=== PATIENT | female | born 1985 | race Caucasian/White ===

== ENCOUNTER 2019-10-06 14:03 | Emergency (ER) | payer MEDICAID, SELFPAY ==
--- NOTE | 2019-10-06 14:29 | US_ITS ---
WS: [id number] Obstetrical ultrasound, limited. HISTORY: Vaginal bleeding with . COMPARISON: None. Transabdominal and transvaginal imaging is submitted. Uterus is anteverted. There is a slightly elongated shaped gestational sac with decidual reaction. Sa c measurement corresponds to gestation of 6 weeks and 5 days. No pole, cardiac activity or yolk sac is identified. Cervix is closed. RIGHT ovary measures 2.2 x 1.5 x 2.4 cm. LEFT ovary measures 3. 3 x 1.7 x 2.0 cm. No free fluid. US/US OB limited [id number] IMPRESSION: 1. Slightly irregular intrauterine gestational sac with no pole or cardia c activity. Suspect incomplete spontaneous . 2. No free fluid or adnexal mass.
[2019-10-06 15:38] VITALS: BP 135/85; PULSE 95; RESP 18; TEMP 37.4; O2SAT 98; BMI 27.4
[2019-10-06 15:52] LABS: Basophils % 0.5 %; Eosinophils # 0.2 10^3/uL (0.0-0.8); Eosinophils % 1.9 %; Hematocrit 40.5 % (37.0-47.0); Hemoglobin 13.3 g/dL (11.5-15.3); Lymphocytes # 1.5 10^3/uL (0.8-4.8); Lymphocytes % 17.1 %; Mean Corpuscular HGB Conc 32.8 g/dL (30.0-36.0); Mean Corpuscular Hemoglobin 28.1 pg (28.0-34.0); Mean Corpuscular Volume 85.6 fL (81-99); Mean Platelet Volume 9.9 fL (7.4-10.4); Monocytes # 0.6 10^3/uL (0.2-0.9); Monocytes % 6.8 %; Neutrophils # 6.3 10^3/uL (1.8-7.7); Neutrophils % 73.3 %; Nucleated Red Blood Cells % 0 %; Platelet Count 272 10^3/cmm (130-400); Red Blood Count 4.73 10^6/uL (4.1-5.3); Red Cell Distribution Width 13.6 % (12.1-15.1); White Blood Count 8.5 10^3/uL (4.0-10.0)
--- NOTE | 2019-10-06 16:02 | ED_ITS ---
Entered by Marci Ulloa, acting as scribe for Oct 06, 2019 14:03 HPI - Abdominal Pain General: Chief Complaint: Abdominal Pain Stated Complaint: bleeding and preg x 10 weeks Time Seen by Provider: 10/06/19 15:58 Source: patient Mode of arrival: ambulatory Limitations: no limitations History of Present Illness: MD elicited complaint: abdominal pain Pertinent past history: other (kidney failure) Pain Consistency: constant Radiation: epigastric Exacerbating factors: nothing Relieving factors: nothing Related Data: Date of Last Menstrual Period: 07/27/19 Review of Systems General: Reports: 10 or more systems reviewed and unremarkable except in HPI and below : Reports: vaginal bleeding PFSH ED PFSH: Statuses (acute, chronic, etc) shown below reflect problem list status as previously entered and may not be historically accurate Surgical History History of cholecystectomy (Acute) Social History Smoking and tobacco status: former smoker Female Reproductive History: Date of last menstrual period: 07/27/19 Physical Exam Narrative: EXAM NARRATIVE: Patient found out that she was last week. She has had heavy vaginal bleeding with passing clots for the past 2 days. Const: COMMON NORMALS: no apparent distress, average body habitus, oriented x3, no limitations, healthy appearing, alert and well nourished GENERAL APPEARANCE: anxious Neck/C-Spine: COMMON NORMALS: full ROM and no JVD CERVICAL SPINE: Yes cervical ROM normal Resp: COMMON NORMALS: normal respiratory effort, no retractions, no use of accessory muscles and clear to auscultation bilaterally AUSCULTATION: clear to auscultation bilaterally Cardio: COMMON NORMALS: no JVD, regular rate and regular rhythm RATE: regular rate RHYTHM: regular rhythm GI: COMMON NORMALS: normal to inspection, nondistended, normoactive bowel sounds, soft to palpation, non-tender and no hepatosplenomegaly PALPATION: Yes soft and Yes no hepatosplenomegaly : COMMON NORMALS: Yes no CVA tenderness and Yes external appearance normal BLADDER/KIDNEY EXAM: Yes no CVA tenderness EXTERNAL FEMALE EXAM: Yes normal appearance of the urethra SPECULUM EXAM - VAGINA: Yes vaginal bleeding and No tissue present in vagina SPECULUM EXAM - CERVIX: No cervical os open, Yes cervical os closed and Yes cervical bleeding OB/EXTERNAL & SPECULUM: vaginal bleeding; no tissue noted in vagina and cervical os open Back/Pelvis: COMMON NORMALS: no CVA tenderness Extremity: COMMON NORMALS: normal to inspection and full ROM Neuro: COMMON NORMALS: oriented x3 SENSORIUM/ORIENTATION: Yes alert Psych: COMMON NORMALS: mental status grossly normal, thought process normal and cooperative ATTITUDE: Yes calm ACTIVITY/MOTOR BEHAVIOR: Yes appropriate eye contact MOOD & AFFECT: Yes depressed mood, Yes anxious and Yes tearful THOUGHT PROCESS: normal thought process Course Vital Signs: Vital signs: Vital Signs Temperature 99.3 F 10/06/19 15:38 Pulse Rate 95 10/06/19 15:38 Respiratory Rate 17 10/06/19 16:08 Blood Pressure 135/85 10/06/19 15:38 Pulse Oximetry 95 10/06/19 16:08 MDM - Abdominal Pain MDM Narrative: Medical decision making narrative: Patient states she is 6 para 4 AB 1. She just found out last week she was . She believes she is about 9 weeks along. She has had heavy vaginal bleeding with passage of clots for the past 2 days. Ultrasound reveals a misshapen or irregularly shaped gestational sac with no cardiac activity. I explained to the patient that this is most probably an incomplete spontaneous . Patient is given a lab order for repeat quantitative hCG in 48 hours and instructed to follow-up with [facility]. Lab Data: Labs: Lab Results 10/06/19 10/06/19 Range/Units 15:41 15:41 WBC 8.5 (4.0-10.0) 10^3/ uL RBC 4.73 (4.1-5.3) 10^6/u L Hgb 13.3 (11.5-15.3) g/dL Hct 40.5 (37.0-47.0) % MCV 85.6 (81-99) fL MCH 28.1 (28.0-34.0) pg MCHC 32.8 (30.0-36.0) g/dL RDW 13.6 (12.1-15.1) % Plt Count 272 (130-400) 10^3/c mm MPV 9.9 (7.4-10.4) fL Neut % (Auto) 73.3 % Lymph % (Auto) 17.1 % [place] % (Auto) 6.8 % Eos % (Auto) 1.9 % Baso % (Auto) 0.5 % Neut # (Auto) 6.3 (1.8-7.7) 10^3/u L Lymph # (Auto) 1.5 (0.8-4.8) 10^3/u L [place] # (Auto) 0.6 (0.2-0.9) 10^3/u L Eos # (Auto) 0.2 (0.0-0.8) 10^3/u L Baso # (Auto) 0.0 (0.0-0.1) 10^3/u L Nucleated RBC % (a uto) 0 % Nucleated RBCs # 0.0 /100WBC Sodium 136 (136-145) mmol/L Potassium 3.9 (3.5-5.1) mmol/L Chloride 100 (98-107) mmol/L Carbon Dioxide 24 (22-29) mmol/L Anion Gap 15.9 (5-19) BUN 6 (6-20) mg/dL Creatinine 0.5 (0.5-0.9) mg/dL GFR Calculation 140.4 H (90-130) mL/min Glucose 104 (74-109) mg/dL Calcium 9.5 (8.6-10.0) mg/Dl Total Bilirubin 0.2 (0.15-1.2) mg/dL AST 19 (0-32) U/L ALT 20 (0-33) U/L Alkaline Phosphata se 124 H (35-105) IU/L Total Protein 7.3 (6.6-8.7) g/dL Albumin 4.4 (3.5-5.2) g/dL Globulin 2.9 (1.3-4.6) g/dL Ser , Teresa i-Qnt 4281.00 mIU/mL Coding Level of Care Code ED Quill Skinner for Chdanielle Sands The documentation recorded by the Artemio hope Bridget Annette, accurately reflects the service I personally performed and the decisions made by Edouard abraham Donald P, DO Oct 06, 2019 14:03
[2019-10-06 16:08] VITALS: RESP 17; O2SAT 95
[2019-10-06 16:17] LABS: Alanine Aminotransferase 20 U/L (0-33); Albumin Level 4.4 g/dL (3.5-5.2); Alkaline Phosphatase 124 IU/L (35-105); Anion Gap 15.9 (5-19); Aspartate Amino Transferase 19 U/L (0-32); Blood Urea Nitrogen 6 mg/dL (6-20); Calcium 9.5 mg/Dl (8.6-10.0); Carbon Dioxide 24 mmol/L (22-29); Chloride 100 mmol/L (98-107); Globulin 2.9 g/dL (1.3-4.6); Glomerular Filtration Rate 140.4 mL/min (90-130); Glucose 104 mg/dL (74-109); Potassium 3.9 mmol/L (3.5-5.1); Sodium 136 mmol/L (136-145); Total Bilirubin 0.2 mg/dL (0.15-1.2); Total Protein 7.3 g/dL (6.6-8.7)
[2019-10-06 16:54] VITALS: BP 116/90; PULSE 87; RESP 16
[2019-10-06 17:02] LABS: Add Urine Microscopic? YES; Bilirubin Urine Neg (NEGATIVE); Blood Urine 3+ (Negative); Glucose Urine UA Norm (Normal); Ketones Urine Negative (Negative); Leukocyte Esterase Urine Trace (Negative); Nitrate Urine Negative (Negative); Protein Urine 1+ (Negative); Specific Gravity, Urine 1.015 (1.005-1.030); Urine Appearance Cloudy (CLEAR); Urine Color Orange (Yellow); Urobilinogen Urine 1 mg/dL (Negative); pH Urine 6.5 (5-7)
[2019-10-06 17:03] LABS: RBC Urine 25-40 /hpf (0-2)
[2019-10-06 17:05] LABS: Add Urine Culture? Yes; Bacteria Urine 2+
--- NOTE | 2019-10-07 10:06 | DCPLANNER ---
sales effectiveness manager had message to schedule a follow up appointment for [facility] with [facility]. sales effectiveness manager called [facility], spoke with Bhavana, gave clinic patients information. sales effectiveness manager was told that patients information would be printed off and reviewed. Clinic will call leather case finisher and patient with appointment information.
== END 2019-10-06 16:55 | disposition home or self-care (01) ==
PROVIDERS: Physician Assistant; Emergency Provider Family Medicine
DX: O26.891 Other specified pregnancy related conditions, first trimester (principal); R10.9 Unspecified abdominal pain; Z87.891 Personal history of nicotine dependence; Z3A.09 9 weeks gestation of pregnancy
CPT/HCPCS: 36415; 76815; 80053; 81003; 84702; 85025; 86900; 87086; 99282

== ENCOUNTER 2019-10-07 07:46 | Emergency (ER) | payer MEDICAID, SELFPAY ==
--- NOTE | 2019-10-07 07:49 | W.ED.FEMALGU ---
HPI - Female Genitourinary General: Chief complaint: Urogenital-Female Stated complaint: poss miscarriage Time Seen by Provider: 10/07/19 07:49 Source: patient Mode of arrival: ambulatory Limitations: no limitations History of Present Illness: HPI Narrative: Pt is a [id number] female at what she believed to be around 9wks here for continued bleeding after finding out yesterday that she was miscarrying; reports she just found out last week she was ; report vaginal bleeding with passage of clots for the past 2 days; ultrasound from yesterday showed gestational sac with no cardiac activity; she was instructed to follow up with OBGYN elicited complaint: vaginal bleeding Onset (ago): day(s) Female Urogenital Radiation: Non-Radiating Quality of pain: cramping Consistency: constant Vaginal discharge: none Vaginal bleeding: moderate and clots Exacerbating factors: none Relieving factors: none Associated symptoms: Reports vaginal bleeding and other (lightheadedness ); Deny abdominal pain, headache(s), nausea or syncope Sexual activity: Yes Patient : Yes Date of Last Menstrual Period: 07/27/19 Review of Systems Const: Denies: fever or chills Card: Reports: lightheadedness; Denies: chest pain, palpitations, irregular heart rhythm, edema, swelling of feet/ankles, syncope, pre-syncope, shortness of breath on exertion or shortness of breath when lying down Resp: Denies: shortness of breath, productive cough, non-productive cough, wheezing, stridor, pain on inspiration, change in phlegm color, coughing up blood or chest congestion GI: Denies: abdominal pain, nausea or vomiting : Reports: vaginal bleeding and pelvic pain Musc: Denies: neck pain, back pain, extremity pain or extremity swelling Skin/Breast: Denies: rash Neuro: Denies: headache, numbness in extremities, weakness in extremities, changes in sensation, lack of coordination, difficulty walking or frequent falls PFSH ED PFSH: Statuses (acute, chronic, etc) shown below reflect problem list status as previously entered and may not be historically accurate Social History Smoking and tobacco status: former smoker Female Reproductive History: Date of last menstrual period: 07/27/19 Physical Exam Const: COMMON NORMALS: no apparent distress, average body habitus, oriented x3 and well nourished Resp: COMMON NORMALS: normal respiratory effort and clear to auscultation bilaterally AUSCULTATION: clear to auscultation bilaterally Cardio: COMMON NORMALS: regular rate and regular rhythm RATE: regular rate RHYTHM: regular rhythm GI: COMMON NORMALS: normal to inspection, nondistended, normoactive bowel sounds, soft to palpation and no masses PALPATION: Yes soft OTHER: TTP lower abdomen/pelvis : COMMON NORMALS: Yes no CVA tenderness BLADDER/KIDNEY EXAM: Yes no CVA tenderness SPECULUM EXAM - VAGINA: Yes vaginal bleeding Amount: small/minimal and Yes tissue present in vagina (one clot ) SPECULUM EXAM - CERVIX: Yes cervical os open OB/EXTERNAL & SPECULUM: tissue present in vagina (one clot ), cervical os open and vaginal bleeding Back/Pelvis: COMMON NORMALS: no CVA tenderness Neuro: COMMON NORMALS: oriented x3 Skin: COMMON NORMALS: no rashes or lesions noted GENERAL SKIN EXAM: no rashes or lesions noted Course Vital Signs: Vital signs: Vital Signs Temperature 98.5 F 10/07/19 07:54 Pulse Rate 94 10/07/19 08:07 Respiratory Rate 20 H 10/07/19 07:54 Blood Pressure 131/83 10/07/19 08:07 Pulse Oximetry 98 10/07/19 07:54 MDM - Female MDM Narrative: Medical decision making narrative: Ultrasound from yesterday's visit was reviewed and attached to this note; I do not feel repeating an ultrasound less than 24 hours later would change any form of management; repeat hemoglobin reveals a drop of 0.4 which I do not feel is overly significant; on exam she did have one blood clot in her vaginal canal otherwise bleeding was fairly mild; info was placed to CM to get her set up with OBGYN for followup; she does not need rhogam Lab Data: Labs: Lab Results 10/07/19 10/07/19 10/07/19 Range/Units 08:12 08:12 08:12 WBC 12.6 H (4.0-10.0) 10^3/ uL RBC 4.63 (4.1-5.3) 10^6/u L Hgb 12.9 (11.5-15.3) g/dL Hct 39.3 (37.0-47.0) % MCV 84.9 (81-99) fL MCH 27.9 L (28.0-34.0) pg MCHC 32.8 (30.0-36.0) g/dL RDW 13.4 (12.1-15.1) % Plt Count 255 (130-400) 10^3/c mm MPV 10.0 (7.4-10.4) fL Neut % (Auto) 81.2 % Lymph % (Auto) 11.2 % [place] % (Auto) 6.2 % Eos % (Auto) 1.0 % Baso % (Auto) 0.2 % Neut # (Auto) 10.2 H (1.8-7.7) 10^3/u L Lymph # (Auto) 1.4 (0.8-4.8) 10^3/u L [place] # (Auto) 0.8 (0.2-0.9) 10^3/u L Eos # (Auto) 0.1 (0.0-0.8) 10^3/u L Baso # (Auto) 0.0 (0.0-0.1) 10^3/u L Nucleated RBC % (a uto) 0 % Nucleated RBCs # 0.0 /100WBC Ser , Teresa i-Qnt 2768.00 mIU/mL Blood Type B Positive Imaging Data: US: Radiologist's impression: [place] [address] Ultrasound Report Signed Patient: Terra Gaona Unit #: [id number] : [id number] Age/Sex: 34 / F ADM Date: 10/06/19 Loc: ER Room/Bed: Attending Dr: Ordering Provider/Ordering MD: Gale Davis Date of Service: 10/06/19 Procedure(s): US OB limited [id number] Accession Number(s): [id number] Report Number: [id number] WS: [id number] Obstetrical ultrasound, limited. HISTORY: Vaginal bleeding with . COMPARISON: None. Transabdominal and transvaginal imaging is submitted. Uterus is anteverted. There is a slightly elongated shaped gestational sac with decidual reaction. Sac measurement corresponds to gestation of 6 weeks and 5 days. No pole, cardiac activity or yolk sac is identified. Cervix is closed. RIGHT ovary measures 2.2 x 1.5 x 2.4 cm. LEFT ovary measures 3.3 x 1.7 x 2.0 cm. No free fluid. US/US OB limited [id number] IMPRESSION: 1. Slightly irregular intrauterine gestational sac with no pole or cardiac activity. Suspect incomplete spontaneous . 2. No free fluid or adnexal mass. Dictated By: Rita Hayes DO Signed By: Rita Hayes DO Signed Date/Time: 10/06/191535 DD/ 30 Discharge Plan Discharge Patient Disposition: Home, Self-Care Clinical Impression: Spontaneous in first trimester Condition: Stable Prescriptions: No Action clonazepam [Klonopin] 1 mg tablet 1 mg PO Q8H PRN (Reason: anxiety) Qty: 14 RF: 0 [id number] 28 mg iron- 800 mcg-235 mg Capsule 1 cap PO DAILY RF: 0 Tylenol Extra Strength 1,000 mg PO Q4H PRN (Reason: Pain) RF: 0 Discharge Orders: Discharge Order (Routine); Ordered 10/07/19 Ordered By: Gale Davis Discharge Diet: Usual diet Discharge Activity: Increase activity as tolerated Activity Restrictions/Additional Instructions: As disussed you need to follow up with OBGYN. Case management will contact you to give you appointment date/time. Return to ED for heavy persistent bleeding, worsening bleeding, or increasing pain. Coding Level of Care Code ED License Distributor for Marcial Sands
[2019-10-07 07:54] VITALS: BP 123/78; PULSE 85; RESP 20; TEMP 36.9; O2SAT 98; BMI 27.4
[2019-10-07 08:07] VITALS: BP 114/82; BP 115/80; BP 131/83; PULSE 90; PULSE 94
[2019-10-07 08:23] LABS: Basophils % 0.2 %; Eosinophils # 0.1 10^3/uL (0.0-0.8); Hematocrit 39.3 % (37.0-47.0); Hemoglobin 12.9 g/dL (11.5-15.3); Lymphocytes # 1.4 10^3/uL (0.8-4.8); Lymphocytes % 11.2 %; Mean Corpuscular HGB Conc 32.8 g/dL (30.0-36.0); Mean Corpuscular Hemoglobin 27.9 pg (28.0-34.0); Mean Corpuscular Volume 84.9 fL (81-99); Monocytes # 0.8 10^3/uL (0.2-0.9); Monocytes % 6.2 %; Neutrophils # 10.2 10^3/uL (1.8-7.7); Neutrophils % 81.2 %; Nucleated Red Blood Cells % 0 %; Platelet Count 255 10^3/cmm (130-400); Red Blood Count 4.63 10^6/uL (4.1-5.3); Red Cell Distribution Width 13.4 % (12.1-15.1); White Blood Count 12.6 10^3/uL (4.0-10.0)
[2019-10-07] MEDS: acetaminophen 500 mg Tablet 1000 MG XX (09:20)
[2019-10-07] MEDS: ondansetron 2 mg/ML SDV 2 mL 4 MG IVP (09:20)
[2019-10-07] MEDS: sodium chloride 0.9% 1,000 ML 999 ML IV (09:21)
--- NOTE | 2019-10-07 10:08 | DCPLANNER ---
cage manager was asked to schedule a follow up appointment for patient with [facility]. cage manager called [facility] and spoke with Bhavana, gave clinic patients information. cage manager was told that patients information would be printed and reviewed. Clinic will call showcase maker with appointment information. cage manager had message left to make a referral to [facility] from previous visit to ED on 10.06.19.
[2019-10-07 10:32] VITALS: BP 110/75; PULSE 75; RESP 16; O2SAT 99
--- NOTE | 2019-10-13 12:44 | DCPLANNER ---
Patient had an appointment scheduled for 10.09.19 at [facility], and patient did attend the appointment.
== END 2019-10-07 10:33 | disposition home or self-care (01) ==
PROVIDERS: Emergency Provider Physician Assistant
DX: O03.9 Complete or unspecified spontaneous abortion without complication (principal); Z87.891 Personal history of nicotine dependence
CPT/HCPCS: 36415; 84702; 85025; 86900; 96360; 96374; 99282; E0352; J2405; J7030

== ENCOUNTER 2019-10-08 15:25 | Outpatient (CLI) | payer SELFPAY | END 2019-10-08 15:26 | disposition home or self-care (01) | LOC: LAB 15:31 | PROVIDERS: Visit Provider Family Medicine | DX: O20.0 Threatened abortion (principal) | CPT/HCPCS: 36415; 84702 ==

== ENCOUNTER → 2019-10-09 11:56 | Outpatient (BNVA) | payer SELFPAY | PROVIDERS: Visit Provider Obstetrics & Gynecology | DX: F41.9 Anxiety disorder, unspecified (principal); F32.9 Major depressive disorder, single episode, unspecified; O20.0 Threatened abortion | CPT/HCPCS: 81000 ==

== ENCOUNTER → 2019-10-16 13:50 | Outpatient (BNVA) | payer SELFPAY | PROVIDERS: Visit Provider Obstetrics & Gynecology | DX: O20.0 Threatened abortion (principal); Z30.9 Encounter for contraceptive management, unspecified | CPT/HCPCS: 84702 ==

== ENCOUNTER → 2020-06-07 13:30 | Outpatient (BNVA) | payer MEDICAID, SELFPAY | PROVIDERS: Visit Provider Nurse Practitioner | DX: Z11.59 Encounter for screening for other viral diseases (principal) | CPT/HCPCS: 87635 ==

== ENCOUNTER 2020-06-14 20:00 | Emergency (ER) | payer MEDICAID, SELFPAY ==
[2020-06-14 20:15] VITALS: BP 134/84; PULSE 74; RESP 18; TEMP 36.2; O2SAT 97; BMI 26.4
[2020-06-14 20:23] VITALS: BP 123/88; PULSE 76; RESP 18; O2SAT 97
--- NOTE | 2020-06-14 20:24 | ED_ITS ---
HPI - Abdominal Pain General: Chief Complaint: Abdominal Pain Stated Complaint: abd pain/ cant hold anything down/preg Time Seen by Provider: 06/14/20 20:20 History of Present Illness: HPI narrative: Patient is a 2 35-year-old female comes to the ED with nausea and vomiting and abdominal pain. Symptoms started approximately 4 days ago. Abdominal pain is in the lower abdomen and pelvis region. She rates abdominal pain currently a 6 out of 10. Patient says her nausea and vomiting is gotten worse and she is having trouble keeping any food down. Patient was also tested positive for COVID-19 within the last week as well. She describes the only upper respiratory symptom she is having is a cough. She has taken an at-home test that was positive and also [facility] and says that they tested her hCG quant levels and it was 9000. Patient's last known menstrual cycle was February 21, but does not know how far along she currently is with . Denies fever, chills, chest pain, shortness of breath, bowel symptoms, hematuria. Patient does endorse having some dysuria currently. Associated Symptoms: Reports dysuria, nausea and vomiting; Denies chills, constipation, diarrhea, fever(s), hematochezia and hematuria Related Data: Date of Last Menstrual Period: 02/22/20 Review of Systems Const: Denies: fever(s), chills or fatigue Eyes: Denies: change in vision or eye discomfort ENMT: Denies: throat pain, odynophagia, nasal discharge or nasal congestion Card: Denies: chest pain, palpitations, edema, swelling of feet/ankles, dyspnea on exertion or orthopnea Resp: Reports: non-productive cough; Denies: dyspnea or productive cough GI: Reports: abdominal pain, nausea and vomiting; Denies: diarrhea, constipation or hematochezia : Reports: dysuria; Denies: flank pain or hematuria Musc: Denies: neck pain, back pain or extremity swelling Skin/Breast: Denies: rash or new lesions Neuro: Denies: headache(s), numbness in extremities or weakness in extremities PFS ED PFSH: Medical History Anxiety and depression Cervical intraepithelial neoplasia III 11/24/2018: Colposcopy. Minimal acetowhite changes. TZ not seen. Stenotic cervix. 11:00 biopsy - rare dysplastic cells. ECC negative. 11/05/2018: ASCUS with positive high risk HPV. 07/13/2015: LEEP (performed in [place]). Path showed AZUL-3 with negative margin. 07/06/2015: Colposcopy (performed in [place]). External biopsy negative. ECC showed AZUL-3. Contraception management Surgical History History of cholecystectomy (~2010) Laparoscopic Family History Grandmother Thyroid disease Maternal Hypertension Maternal Diabetes Maternal Mother Diabetes Thyroid disease Hypertension Family/Other Hypertension Maternal aunt Heart disease Maternal uncle Social History Smoking and tobacco status: former smoker Quit status (tobacco): has quit using tobacco Former quit date comment: Was smoking 1/4 ppd. Started age 31 Alcohol intake: never Current gender identity: Female Female Reproductive History: Date of last menstrual period: 02/22/20 Physical Exam Const: COMMON NORMALS: no acute distress, patient oriented x3, healthy appearing and alert GENERAL APPEARANCE: cooperative and comfortable HENMT: COMMON NORMALS: normocephalic HEAD & SCALP: normocephalic MOUTH: Normal oral and palatal mucosa present THROAT: posterior oropharynx normal and uvula midline Eye: COMMON NORMALS: Equal, round and reactive pupils present PUPIL: Yes Equal, round and reactive pupils present Neck/C-Spine: COMMON NORMALS: supple GENERAL: Yes normal visual inspection Resp: COMMON NORMALS: normal respiratory effort, No retractions, No use of accessory muscles and clear to auscultation bilaterally EFFORT & INSPECTION: Yes able to speak in complete sentences, No tachypneic, No respiratory distress and No labored AUSCULTATION: clear to auscultation bilaterally, no crackles, no wheezes and lung sounds not diminished Cardio: COMMON NORMALS: regular rate, regular rhythm, S1 normal heart sound present, S2 normal heart sound present, No gallops present (Cardio), No clicks present (Cardio), No murmurs present (Cardio) and Peripheral pulses 2+ throughout RATE: regular rate RHYTHM: regular rhythm HEART SOUNDS: S1 normal heart sound present and S2 normal heart sound present PERIPHERAL PULSES: Peripheral pulses 2+ throughout GI: COMMON NORMALS: Normal to inspection, nondistended, normoactive bowel sounds present, Soft to palpation, non-tender and no masses PALPATION: Yes Soft to palpation : COMMON NORMALS: Yes no CVA tenderness BLADDER/KIDNEY EXAM: Yes no CVA tenderness Back/Pelvis: COMMON NORMALS: no CVA tenderness Extremity: COMMON NORMALS: normal to inspection and no pedal edema Neuro: COMMON NORMALS: patient oriented x3 SENSORIUM/ORIENTATION: Yes alert GAIT: Yes Normal gait present Skin: COMMON NORMALS: no rashes or lesions noted GENERAL SKIN EXAM: no rashes or lesions noted and dry skin Course Vital Signs: Vital signs: Vital Signs Temperature 97.2 F L 06/14/20 20:15 Pulse Rate 90 06/15/20 00:01 Respiratory Rate 18 06/15/20 00:01 Blood Pressure 126/72 06/14/20 22:17 Pulse Oximetry 98 06/15/20 00:01 MDM - Abdominal Pain MDM Narrative: Medical decision making narrative: Patient is a 35-year-old female comes to the ED with abdominal pain nausea and vomiting. Patient has no idea how far along she is in . She also endorses having dysuria. Patient tested positive for COVID-19 and is currently on self quarantine and has a cough. CBC and CMP were unremarkable. UA had positive nitrates, RBCs, white blood cells and bacteria-consistent with UTI. hCG quant 6050. Lipase 40. Chest x-ray showed no acute lung infiltrates. Ultrasound of the pelvis showed healthy 17-week-old fetus is intrauterine with a heart rate of 140-150 range and cervix is closed. Patient was given IV 2 L normal saline, m orphine and Zofran to help with pain and nausea. Patient symptoms improved after treatment. Patient diagnosed with abdominal pain in and UTI. Patient was sent home with a prescription for Macrobid and Zofran. Patient says she is scheduled to [facility] once self quarantine is over. Return to ED precautions given. Patient understood and agreed with plan. Lab Data: Attestation: I reviewed the patient's lab results. Labs: Lab Results 06/14/20 06/14/20 06/14/20 Range/Units 21:40 21:40 23:15 WBC 9.0 (4.0-10.0) 10^3/ uL RBC 4.29 (4.1-5.3) 10^6/u L Hgb 12.0 (11.5-15.3) g/dL Hct 37.0 (37.0-47.0) % MCV 86.2 (81-99) fL MCH 28.0 (28.0-34.0) pg MCHC 32.4 (30.0-36.0) g/dL RDW 13.2 (12.1-15.1) % Plt Count 270 (130-400) 10^3/c mm MPV 11.2 H (7.4-10.4) fL Neut % (Auto) 60.7 % Lymph % (Auto) 29.6 % [place] % (Auto) 6.7 % Eos % (Auto) 1.6 % Baso % (Auto) 0.2 % Neut # (Auto) 5.48 (1.8-7.7) 10^3/u L Lymph # (Auto) 2.7 (0.8-4.8) 10^3/u L [place] # (Auto) 0.6 (0.2-0.9) 10^3/u L Eos # (Auto) 0.1 (0.0-0.8) 10^3/u L Baso # (Auto) 0.0 (0.0-0.1) 10^3/u L Nucleated RBC % (a uto) 0 % Nucleated RBCs # 0.0 /100WBC Sodium 137 (136-145) mmol/L Potassium 3.8 (3.5-5.1) mmol/L Chloride 103 (98-107) mmol/L Carbon Dioxide 22 (22-29) mmol/L Anion Gap 15.8 (5-19) BUN 5 L (6-20) mg/dL Creatinine 0.4 L (0.5-0.9) mg/dL GFR Calculation 180.6 H (90-130) mL/min Glucose 85 (65-115) mg/dL Calculated Osmolal ity 281 L (285-295) mOsm/k g Calcium 9.6 (8.5-10.5) mg/dL Total Bilirubin 0.2 (0.15-1.2) mg/dL AST 23 (0-32) U/L ALT 31 (0-33) U/L Alkaline Phosphata se 109 H (35-105) IU/L Total Protein 7.2 (6.6-8.7) g/dL Albumin 3.9 (3.5-5.2) g/dL Globulin 3.3 (1.3-4.6) g/dL Lipase 40 (13-60) U/L Ser , Teresa i-Qnt 6050.00 mIU/mL Urine Color Yellow (Yellow) Urine Appearance Sl hazy (CLEAR) Urine pH 5 (5-7) Ur Specific Gravit y 1.020 (1.005-1.030) Urine Protein Neg (Negative) Urine Glucose (UA) Norm (Normal) Urine Ketones 1+ H (Negative) Urine Blood Neg (Negative) Urine Nitrate Positive H (Negative) Urine Bilirubin Neg (Negative) Urine Urobilinogen Norm (Negative) mg/dL Ur Leukocyte Alesha ase Negative (Negative) Urine RBC 0-4 H (0-2) /hpf Urine WBC 0-4 H (0-5) /hpf Ur Squamous Epith Cells 0-4 H (0-5) /hpf Amorphous Sediment Not Reportable Urine Bacteria 2+ H (NONE) /hpf Imaging Data ^: US OB: Attestation: I personally reviewed and interpreted this imaging study as follows: Radiologist's impression: Ultrasound pelvic?prelim report-healthy 17-week fetus with intrauterine with a heart rate of 140-150. Cervix is closed. CXR: Attestation: I personally reviewed and interpreted this imaging study as follows: My impression: Chest x-ray showed no acute findings or lung infiltrates. Discharge Plan Discharge Patient Disposition: Home Clinical Impression: UTI (urinary tract infection) in in second trimester Abdominal pain during Qualifiers: Trimester: second trimester Qualified Code(s): O26.892 - Other specified related conditions, second trimester Qualifiers: Weeks of gestation: 17 weeks Qualified Code(s): Z3A.17 - 17 weeks gestation of Condition: Stable Prescriptions: New Macrobid 100 mg capsule 100 mg PO BID 7 Days Qty: 14 RF: 0 Zofran 4 mg tablet 4 mg PO Q8H Qty: 20 RF: 0 No Action [id number] 28 mg iron- 800 mcg-235 mg Capsule 1 cap PO DAILY RF: 0 Tylenol Extra Strength 1,000 mg PO Q4H PRN (Reason: Pain) RF: 0 Discharge Orders: Discharge Order (Routine); Ordered 06/14/20 Ordered By: Omar Pepper Discharge Diet: Advance as tolerated Discharge Activity: Increase activity as tolerated Patient Instructions: Urinary Tract Infection in Women (ED) Activity Restrictions/Additional Instructions: Follow-up with OB medical provider at next appointment. Take medications as prescribed. advance diet slowly. Return to the ER or your medical provider if condition worsens. Please read and understand discharge instructions. If any questions, please ask. Discharge Date/Time: 06/15/20 00:01 Coding Level of Care Code ED Certified Legal Secretary Specialist for Chg Fwd Exam Comprehensive
--- NOTE | 2020-06-14 20:38 | XRR_ITS ---
PROCEDURE INFORMATION: Exam: XR Chest, 1 View Exam date and time: 06/14/2020 9:16 PM Age: 35 years old Clinical indication: Cough, covid + TECHNIQUE: Imaging protocol: XR of the chest Views: 1 view. COMPARISON: CR Chest 1 [place] [id number] 07/17/2017 9:37 PM FINDINGS: Lungs: No focal peripheral lung consolidation, air bronchogram formation, or silhouette sign. Pleural space: No pleural effusion or pneumothorax. Heart/Mediastinum: The cardiac silhouette is not enlarged. The mediastinal contours are normal. Bones/joints: No acute osseous abnormality. XR/XR chest 1V portable [id number] IMPRESSION: No radiographic evidence of pneumonia. However, noncontrast CT CHEST is more sensitive in detecting pulmonary ground-glass opacities seen in COVID-19 pneumonia.
--- NOTE | 2020-06-14 21:10 | USR_ITS ---
PROCEDURE INFORMATION: Exam: US , Limited Exam date and time: 06/14/2020 9:13 PM Age: 35 years old Clinical indication: Pain; Other: Covid symptoms; Gestational age or lmp: PT unsure of dates US ga 17w0d; TECHNIQUE: Imaging protocol: Real-time ultrasound of the maternal uterus with image documentation. Exam focused on the clinical indication. COMPARISON: US OB <= 14 weeks fetus [facility] 10/09/2019 11:11 AM FINDINGS: Gestation: Single live intrauterine gestation. heart rate: 147 bpm. Presentation: Cephalic presentation. Placenta: Anterior placenta. The relationship of the lower cervical margin to the endocervical os is not clearly visualized. Amniotic fluid: Amniotic fluid volume is subjectively normal BIOMETRY: Gestational age (AUA): 17 weeks 0 days by ultrasound for ANNIE of 11/22/2020 (estimated gestational age by LMP is 15 weeks 4 days for ANNIE of 12/02/2020). Estimated weight: 178 g (percentile for gestational age not calculated) Biparietal diameter: 16 weeks 6 days Head circumference: 17 weeks 0 days Abdominal circumference: 16 weeks 5 days Femur length: 17 weeks 2 days MATERNAL: Cervix: The cervix is long and closed. US/US OB limited [id number] IMPRESSION: Single live intrauterine of 17 weeks 0 days by ultrasound. No apparent complications.
[2020-06-14 21:17] VITALS: RESP 18
[2020-06-14] MEDS: sodium chloride 0.9% 1,000 ML 999 ML IV ×2 (21:19→22:38)
[2020-06-14] MEDS: ondansetron 2 mg/ML SDV 2 mL 4 MG IVP ×2 (21:19→22:37)
[2020-06-14 22:09] LABS: Basophils % 0.2 %; Eosinophils # 0.1 10^3/uL (0.0-0.8); Eosinophils % 1.6 %; Lymphocytes # 2.7 10^3/uL (0.8-4.8); Lymphocytes % 29.6 %; Mean Corpuscular HGB Conc 32.4 g/dL (30.0-36.0); Mean Corpuscular Volume 86.2 fL (81-99); Mean Platelet Volume 11.2 fL (7.4-10.4); Monocytes # 0.6 10^3/uL (0.2-0.9); Monocytes % 6.7 %; Neutrophils # 5.48 10^3/uL (1.8-7.7); Neutrophils % 60.7 %; Nucleated Red Blood Cells % 0 %; Platelet Count 270 10^3/cmm (130-400); Red Blood Count 4.29 10^6/uL (4.1-5.3); Red Cell Distribution Width 13.2 % (12.1-15.1)
[2020-06-14 22:17] VITALS: BP 126/72; PULSE 78; RESP 18; O2SAT 96
[2020-06-14 22:33] LABS: Alanine Aminotransferase 31 U/L (0-33); Albumin Level 3.9 g/dL (3.5-5.2); Alkaline Phosphatase 109 IU/L (35-105); Anion Gap 15.8 (5-19); Aspartate Amino Transferase 23 U/L (0-32); Blood Urea Nitrogen 5 mg/dL (6-20); Calcium 9.6 mg/dL (8.5-10.5); Carbon Dioxide 22 mmol/L (22-29); Chloride 103 mmol/L (98-107); Globulin 3.3 g/dL (1.3-4.6); Glomerular Filtration Rate 180.6 mL/min (90-130); Glucose 85 mg/dL (65-115); Lipase 40 U/L (13-60); Osmolality Calculated 281 mOsm/kg (285-295); Potassium 3.8 mmol/L (3.5-5.1); Sodium 137 mmol/L (136-145); Total Bilirubin 0.2 mg/dL (0.15-1.2); Total Protein 7.2 g/dL (6.6-8.7)
[2020-06-14] MEDS: morphine 4 mg/mL SDV 1 mL 2 MG IVP (22:37)
[2020-06-14 23:00] VITALS: PULSE 90; RESP 18; O2SAT 98
[2020-06-14 23:31] LABS: Add Urine Culture? Yes; Bacteria Urine 2+ /hpf; Bilirubin Urine Neg (Negative); Blood Urine Neg (Negative); Glucose Urine UA Norm (Normal); Ketones Urine 1+ (Negative); Leukocyte Esterase Urine Negative (Negative); Nitrate Urine Positive (Negative); Protein Urine Neg (Negative); RBC Urine 0-4 /hpf (0-2); Squamous Epithelial Cell Urine 0-4 /hpf (0-5); Urine Appearance SL Hazy (CLEAR); Urine Color Yellow (Yellow); Urobilinogen Urine Norm (Negative); WBC Urine 0-4 /hpf (0-5); pH Urine 5 (5-7)
[2020-06-14] MEDS: nitrofurantoin SR (BID) 100 mg Capsule PO (23:50)
[2020-06-15 00:01] VITALS: PULSE 90; RESP 18; O2SAT 98
== END 2020-06-15 00:01 | disposition home or self-care (01) ==
PROVIDERS: Emergency Medicine; Emergency Provider Physician Assistant
DX: O98.512 Other viral diseases complicating pregnancy, second trimester (principal); U07.1 COVID-19; O23.42 Unspecified infection of urinary tract in pregnancy, second trimester; Z3A.17 17 weeks gestation of pregnancy; Z87.891 Personal history of nicotine dependence
CPT/HCPCS: 12345; 71045; 76801; 76815; 80053; 81001; 83690; 84702; 85025; 87086; 96361; 96374; 96375; 99283; 99284; J2270; J2405; J7030

== ENCOUNTER → 2020-06-22 08:57 | Outpatient (BNVA) | payer MEDICAID, SELFPAY | PROVIDERS: Visit Provider Nurse Practitioner Women's Health | DX: O21.9 Vomiting of pregnancy, unspecified (principal); O99.332 Smoking (tobacco) complicating pregnancy, second trimester; O09.529 Supervision of elderly multigravida, unspecified trimester; O09.522 Supervision of elderly multigravida, second trimester; O99.322 Drug use complicating pregnancy, second trimester; O23.42 Unspecified infection of urinary tract in pregnancy, second trimester; U07.1 COVID-19 | CPT/HCPCS: 80307; 84315; 86592; 86762; 86803; 86850; 86900; 87340; 87806 ==

== ENCOUNTER → 2020-06-29 10:09 | Outpatient (BNVA) | payer MEDICAID, SELFPAY | PROVIDERS: Visit Provider Obstetrics & Gynecology | DX: Z34.90 Encounter for supervision of normal pregnancy, unspecified, unspecified trimester (principal); Z34.80 Encounter for supervision of other normal pregnancy, unspecified trimester | CPT/HCPCS: 84315; 87491; 87591; 88175 ==

== ENCOUNTER → 2020-07-08 15:51 | Outpatient (BNVA) | payer MEDICAID, SELFPAY | PROVIDERS: Visit Provider Obstetrics & Gynecology | DX: Z34.90 Encounter for supervision of normal pregnancy, unspecified, unspecified trimester (principal); Z3A.00 Weeks of gestation of pregnancy not specified | CPT/HCPCS: 76805 ==

== ENCOUNTER → 2020-09-01 11:56 | Outpatient (BNVA) | payer MEDICAID, SELFPAY | PROVIDERS: Visit Provider Obstetrics & Gynecology | DX: O09.892 Supervision of other high risk pregnancies, second trimester (principal); Z3A.00 Weeks of gestation of pregnancy not specified | CPT/HCPCS: 82950; 84315; 85027 ==

== ENCOUNTER → 2020-09-08 00:01 | Outpatient (BNVA) | payer MEDICAID, SELFPAY | PROVIDERS: Visit Provider Obstetrics & Gynecology | DX: R73.09 Other abnormal glucose (principal) | CPT/HCPCS: 82951; 82952 ==

== ENCOUNTER → 2020-10-27 14:43 | Outpatient (BNVA) | payer MEDICAID, SELFPAY | PROVIDERS: Visit Provider Obstetrics & Gynecology | DX: O09.893 Supervision of other high risk pregnancies, third trimester (principal); Z11.3 Encounter for screening for infections with a predominantly sexual mode of transmission; Z3A.00 Weeks of gestation of pregnancy not specified | CPT/HCPCS: 84315; 86592; 87081; 87491; 87591; 87806 ==

== ENCOUNTER 2020-11-11 06:13 | Inpatient (IN) | payer MEDICAID, SELFPAY ==
[2020-11-11] VITALS (151 sets, daily range): BP systolic 111–175; BP diastolic 57–118; PULSE 71–114; RESP 16–18; TEMP 36.6; O2SAT 96–100; BMI 34.0
[2020-11-11 06:29] LABS: Basophils % 0.4 %; Eosinophils # 0.1 10^3/uL (0.0-0.8); Eosinophils % 1.2 %; Hematocrit 37.9 % (37.0-47.0); Hemoglobin 12.3 g/dL (11.5-15.3); Lymphocytes # 2.5 10^3/uL (0.8-4.8); Lymphocytes % 24.1 %; Mean Corpuscular HGB Conc 32.5 g/dL (30.0-36.0); Mean Corpuscular Hemoglobin 27.7 pg (28.0-34.0); Mean Corpuscular Volume 85.4 fL (81-99); Mean Platelet Volume 12.1 fL (7.4-10.4); Monocytes # 0.7 10^3/uL (0.2-0.9); Monocytes % 7.1 %; Neutrophils # 6.82 10^3/uL (1.8-7.7); Neutrophils % 66.7 %; Nucleated Red Blood Cells % 0 %; Platelet Count 201 10^3/cmm (130-400); Red Blood Count 4.44 10^6/uL (4.1-5.3); Red Cell Distribution Width 15.6 % (12.1-15.1); White Blood Count 10.2 10^3/uL (4.0-10.0)
--- NOTE | 2020-11-11 06:35 | ANES.PREANE2 ---
Pre-Anesthetic Assessment Pre-Anesthetic Assessment: Height/Weight: Height 1.63 m Pulse BP Pulse Ox 88 130/81 99 11/11/20 06:54 11/11/20 06:54 11/11/20 06:49 Preop Diagnosis: IUP Was Beta Liliana taken within 24 hours: N/A Social: Social History: Tobacco Comment: history of marijuana Exam: Pre-Anes Outpt Exam: alert, oriented x 3, clear to auscultation bilaterally and regular rate & rhythm Airway: Submandibular: WNL Cervical ROM: WNL MP: 2 History/ROS: No significant history except as noted Pulmonary: Pulmonary: None reported CV/HEM: CV/HEM: None reported : : None reported Hepatic: Hepatic: None reported GI: GI: GERD Metabolic: Metabolic: None reported Musc/skel: Musc/skel: None reported Neuropsych: Neuropsych: None reported Anesthetic Plan: ASA status: 1 Risk of > 500 ml blood loss (7ml/kg in children): No Meds/Allergies Current Medications: Current Medications Generic Name Dose Route Start Last Admin Trade Name Freq PRN Reason Stop Dose Admin Ropivacaine 200 mg in 100 mls @ 13 mls/hr 11/11/20 06:15 11/11/20 06:53 Naropin Premix EPIDURAL 13 mls/hr .[id number] VANESSA Administration Lactated Ringer's 1,000 mls @ 999 m ls/hr 11/11/20 06:09 11/11/20 06:51 Lactated Ringers IV 999 mls/hr .Q1H1M PRN Administration See label comment s Ampicillin Sodium 2,000 mg/ 50 mls @ 100 mls/ hr 11/11/20 06:32 11/11/20 06:52 Sodium Chloride IV 11/11/20 07:01 100 mls/hr ONCE ONE Administration Protocol PFS Anesthesia PFSH: Medical History (Updated 11/04/20 @ 11:24 by Clovis Arce MD) Anxiety and depression Cervical intraepithelial neoplasia III 11/24/2018: Colposcopy. Minimal acetowhite changes. TZ not seen. Stenotic cervix. 11:00 biopsy - rare dysplastic cells. ECC negative. 11/05/2018: ASCUS with positive high risk HPV. 07/13/2015: LEEP (performed in [place]). Path showed AZUL-3 with negative margin. 07/06/2015: Colposcopy (performed in [place]). External biopsy negative. ECC showed AZUL-3. Lab test positive for detection of COVID-19 virus 06/07/2020 Surgical History History of cholecystectomy (~2010) Laparoscopic Family History Grandmother Thyroid disease Maternal Hypertension Maternal Diabetes Maternal Mother Diabetes Thyroid disease Hypertension Family/Other Hypertension Maternal aunt Heart disease Maternal uncle Social History (Updated 11/04/20 @ 11:52 by Clovis Arce MD) Smoking and tobacco status: former smoker Quit status (tobacco): has quit using tobacco Former quit date comment: Was smoking 1/4 ppd. Started age 31 Alcohol intake: never Other details last substance use: Last use: Mid 05/2020 Female Reproductive History: Date of last menstrual period: 02/22/20 Data Anesthesia CBC & Chem 7: 11/11/20 06:05 Other Labs: Laboratory Results - last 48 hr 11/11/20 06:05 WBC 10.2 H RBC 4.44 Hgb 12.3 Hct 37.9 MCV 85.4 MCH 27.7 L MCHC 32.5 RDW 15.6 H Plt Count 201 MPV 12.1 H Neut % (Auto) 66.7 Lymph % (Auto) 24.1 [place] % (Auto) 7.1 Eos % (Auto) 1.2 Baso % (Auto) 0.4 Neut # (Auto) 6.82 Lymph # (Auto) 2.5 [place] # (Auto) 0.7 Eos # (Auto) 0.1 Baso # (Auto) 0.0 Nucleated RBC % (auto) 0 Nucleated RBCs # 0.0 Cardiac Studies: No Data to Display
[2020-11-11] MEDS: lactated ringers 1,000 ML 999 ML IV (06:51)
[2020-11-11] MEDS: ampicillin 2,000 MG in sodium chloride 0.9% (plus) 50 ML 100 MG IV (06:52)
--- NOTE | 2020-11-11 06:59 | ANES.PROC ---
Anesthesia Procedures Procedure/Date: 11/11/20 Epidural: Time Out Performed: Yes Consents Signed: Procedure Consent Consent: requested by attending/covering physician Lumbar Level: L4-L5 Epidural position: sitting Epidural procedure: sterile prep of area, 1% lidocaine to numb the area, 18 g needle, negative for paresthesia passed, neg for paresthesia, test dose given, 1.5% xylocaine 1:200k epi (5ml), 0.2% Ropivacaine bolus ml (5), placed PCEA, no systemic response, sterile dressing applied, L.U.D. no apparent complications and 0.2% Ropiavacaine @ mls/hr (13)
[2020-11-11] MEDS: lactated ringers 1,000 ML 125 ML IV (07:32)
[2020-11-11 07:57] LABS: Amphetamines Screen Urine Negative (Negative); Barbiturates Screen Urine Negative (Negative); Benzodiazepines Screen Urine Negative (Negative); Cocaine Screen Urine Negative (Negative); Opiate Screen Urine Negative (Negative); PCP Screen Urine Negative (Negative); THC Screen Urine Positive (Negative)
--- NOTE | 2020-11-11 10:26 | P.HP_ITS ---
Providers/Chief Complaint Admitting Physician: Jayne Canseco MD Primary MANAGER CLINICAL PHARMACY: Clovis Arce Chief Complaint: CONTRACTIONS HPI MANAGER CLINICAL PHARMACY History of Present Illness Terra Gaona is a 35 year old female at 38 3/7 weeks who presents in active labor. Her is complicated by AMA, GBS+, history of drug use, tobacco use, AZUL III in and transverse lie. She was scheduled for a next week, however, baby is confirmed to be vertex now. Present Details : 7 Para: 4 Date of Last Menstrual Period: 02/22/20 Calculated Date of Delivery: 11/28/20 Gestational Age Based on Last Menstrual Period: 37 Labs Rubella: Immune RPR: Negative GBS: Positive Review of Systems General: Reports: 10 or more systems reviewed and unremarkable except in HPI and below Medications/Allergies Home Medications Medication Instructions Recorded Confirmed Last Taken Type Tylenol Extra Strength 1,000 mg PO Q4H PRN 10/07/19 11/04/20 06/14/20 History calcium carbonate 200 mg calcium 200 mg PO BID PRN 07/14/20 11/04/20 Unknown History (500 mg) chewable tablet ferrous sulfate 325 mg (65 mg 325 mg PO DAILY #30 tab 09/01/20 11/04/20 Unknown Rx iron) tablet vit 123-iron 28 mg-folic 1 cap PO DAILY #30 cap 09/01/20 11/04/20 Unknown Rx acid 800 [id number] 235 mg capsule famotidine 20 mg tablet 20 mg PO BID 30 Days #60 tab 09/22/20 11/04/20 Unknown Rx Allergies Allergy/AdvReac Type Severity Reaction Status Date / Time No Known Allergies Allergy Verified 11/04/20 11:10 PFSH MANAGER CLINICAL PHARMACY PFSH: Medical History (Updated 11/04/20 @ 11:24 by Clovis Arce MD) Anxiety and depression Cervical intraepithelial neoplasia III 11/24/2018: Colposcopy. Minimal acetowhite changes. TZ not seen. Stenotic cervix. 11:00 biopsy - rare dysplastic cells. ECC negative. 11/05/2018: ASCUS with positive high risk HPV. 07/13/2015: LEEP (performed in [place]). Path showed AZUL-3 with negative margin. 07/06/2015: Colposcopy (performed in [place]). External biopsy negative. ECC showed AZUL-3. Lab test positive for detection of COVID-19 virus 06/07/2020 Surgical History History of cholecystectomy (~2010) Laparoscopic Family History Grandmother Thyroid disease Maternal Hypertension Maternal Diabetes Maternal Mother Diabetes Thyroid disease Hypertension Family/Other Hypertension Maternal aunt Heart disease Maternal uncle Social History (Updated 11/04/20 @ 11:52 by Clovis Arce MD) Smoking and tobacco status: former smoker Quit status (tobacco): has quit using tobacco Former quit date comment: Was smoking 1/4 ppd. Started age 31 Alcohol intake: never Other details last substance use: Last use: Mid 05/2020 Other Female Reproductive History: Hx Age of Menarche: 8 History History History 7 Term 4 Miscarriages/Ectopic 2 0 Living Children 4 Care ANNIE Calculator Estimated Delivery Date Method Current WG Current Estimate 11/22/20 Ultrasound #1 38w 3d Other Estimates 12/02/20 LMP (Uncertain) 37w 0d Expected Delivery Route/Plan Vaginal Specific Issues/Plans * AMA- 35 y/o at delivery * AZUL 3 * TOBACCO USE- stopped early may * MARIJUANA USE- last use mid May * GERD * GBS POSITIVE. Vitals/I&O/Wt Last Vital Signs Pulse 88 11/11/20 10:24 Resp 16 11/11/20 06:10 BP 122/73 11/11/20 10:24 Pulse Ox 97 11/11/20 10:24 11/10/20 11/11/20 11/11/20 22:59 06:59 14:59 Intake Total 1000 / 1000 Balance 1000 / 1000 Weight last 48 hrs Weight 198 lb Physical Exam Const: COMMON NORMALS: no acute distress, patient oriented x3, no limitations, healthy appearing, alert and well nourished Resp: COMMON NORMALS: normal respiratory effort, No retractions and clear to auscultation bilaterally EFFORT & INSPECTION: Yes able to speak in complete sentences Cardio: COMMON NORMALS: no JVD, regular rate and regular rhythm GI: COMMON NORMALS: Soft to palpation and non-tender Extremity: COMMON NORMALS: no clubbing, cyanosis or edema Urinary Catheter Management^: Wheeler: Cath Placed During This Visit: yes Urinary Catheter Date of Insertion: 11/11/20 Urinary Catheter Time of Insertion: 07:05 Data : 11/11/20 06:05 A&P Assessment and plan (1) Supervision of other high risk pregnancies, third trimester: admit for active labor ampicillin for GBS prophylaxis epidural for pain management anticipate Status: Acute Attestations Medical Necessity Statement*: The patient is in active labor. She will be admitted 2 midnights. Coding Level of Care Code Acute Medical Registrar for Chg Fwd Diagnoses Supervision of other high risk pregnancies, third trimester O09.893
[2020-11-11] MEDS: ampicillin 1,000 MG in sodium chloride 0.9% (plus) 50 ML 100 MG IV (11:27)
[2020-11-11] MEDS: miSOPROStol 200 mcg Tablet 400 MCG PO (13:02)
[2020-11-11] MEDS: oxytocin 30 UNIT/500 ML BAG 600 UNIT IV (13:03)
--- NOTE | 2020-11-11 13:04 | P.PCNOB_ITS ---
Delivery Note: Date of delivery: November 11, 2020 Pre-delivery diagnoses: active labor at 38 weeks Procedure: Op report anesthesia: Epidural Delivering Physician: Ajith Estimated blood loss (mL): 25 Findings: Term male in the cephalic presentation Pre-Delivery Course: The patient was admitted in active labor. she received an epidural for pain management Delivery: The patient had complete cervical dilation and began pushing. She delivered a term male in the JEREMY presentation under epidural anesthesia over an intact perineum. The nose and mouth were bulb suctioned and the remainder the baby delivered atraumatically. The baby was placed onto the mother's abdomen. An intact placenta delivered spontaneously. Apgars and weight are pending. Inspection revealed no repair was required. Mother and infant were stable postdelivery. A&P Assessment and plan (1) Supervision of other high risk pregnancies, third trimester: Status: Acute Coding Level of Care Code Acute Operations And Intelligence Assistant for Chg Fwd Diagnoses Supervision of other high risk pregnancies, third trimester O09.893
--- NOTE | 2020-11-11 15:06 | PC.NURSE ---
This mom is wanting to breastfeed. Her baby is going to [place] for medical issues. Discussed with her to begin pumping. She is getting a pump from [facility]. Encouraged her to pump 8 times in 24 hours or more for about 20 min. each breast. Offered to help her start with hand expression but she did not want to do that. Provided contact information.
--- NOTE | 2020-11-11 15:19 | PM.DCS ---
Discharge Providers Date of Admission: 11/11/20 06:13 Date of Discharge: November 11, 2020 Attending Provider at Admission: Jayne Canseco MD Attending Provider at Discharge: Jayne Canseco MD Diagnoses at Discharge Discharge Diagnosis (1) Supervision of other high risk pregnancies, third trimester: Status: Acute Reason for Visit Reason for Visit: CONTRACTIONS Hospital Course Hospital Course The patient was admitted in active labor. She had spontaneous delivery of a term male . The baby was diagnosed with a pneumothorax and was transferred to a tertiary hospital. The mother requested to be discharged with the baby. She was doing well and lochia was normal. She denied any pain. She was discharged in stable condition to call or return for any questions or concerns. Physical Exam Urinary Catheter Management^: Wheeler: Cath Placed During This Visit: yes Urinary Catheter Date of Insertion: 11/11/20 Urinary Catheter Time of Insertion: 07:05 Discharge Data Data Completed and Pending: Pending at discharge Category Date Time Status Hemagram Timed Lab 11/12/20 01:04 Uncollected Labs from last 24 hours 11/11/20 11/11/20 07:19 06:05 WBC 10.2 H RBC 4.44 Hgb 12.3 Hct 37.9 MCV 85.4 MCH 27.7 L MCHC 32.5 RDW 15.6 H Plt Count 201 MPV 12.1 H Neut % (Auto) 66.7 Lymph % (Auto) 24.1 [place] % (Auto) 7.1 Eos % (Auto) 1.2 Baso % (Auto) 0.4 Neut # (Auto) 6.82 Lymph # (Auto) 2.5 [place] # (Auto) 0.7 Eos # (Auto) 0.1 Baso # (Auto) 0.0 Nucleated RBC % (a uto) 0 Nucleated RBCs # 0.0 Urine Opiates Scre en Negative Ur Barbiturates Sc reen Negative Ur Phencyclidine S crn Negative Ur Amphetamines Sc reen Negative U Benzodiazepines Scrn Negative Urine Cocaine Scre en Negative U Marijuana (THC) Screen Positive H Vitals: Last Vital Signs Pulse 77 11/11/20 15:05 Resp 16 11/11/20 06:10 BP 143/68 11/11/20 15:05 Pulse Ox 98 11/11/20 12:48 Discharge Plan Discharge Patient Disposition: Home Condition: Stable Prescriptions: Continued calcium carbonate [Tums] 200 mg calcium (500 mg) tablet,chewable 200 mg PO BID PRNRF: 0 [id number] 28 mg iron- 800 mcg-235 mg capsule 1 cap PO DAILY Qty: 30 RF: 12 ferrous sulfate 325 mg (65 mg iron) tablet 325 mg PO DAILY Qty: 30 RF: 12 famotidine 20 mg tablet 20 mg PO BID 30 Days Qty: 60 RF: 6 Tylenol Extra Strength 1,000 mg PO Q4H PRN (Reason: Pain) RF: 0 Discharge Orders: Discharge Order (Routine); Ordered 11/11/20 Ordered By: Jyane Canseco Discharge Attestations Time Spent in Discharge Care*: less than 30 min Quality Metrics Clinical Quality Measures During this hospital stay, did patient experience: None Coding Level of Care Code Acute Linen Sorter for Josephg Shavon Diagnoses Supervision of other high risk pregnancies, third trimester O09.893
[2020-11-11] MEDS: ibuprofen 800 mg tablet PO (16:12)
[2020-11-11] MEDS: HYDROcodone-acetaminophen 5-325 mg Tablet PO (17:38)
[2020-11-11 18:08] LABS: SARS Covid-2 Antigen Negative (Negative)
--- NOTE | 2020-11-11 20:01 | PC.NURSE ---
Marci with [facility] DFS called to notify facility of received hotline call.
== END 2020-11-11 18:26 | disposition home or self-care (01) | DRG 807 ==
LOC: OPOB 06:13 → OBGYN 06:13
PROVIDERS: Admitting Provider Obstetrics & Gynecology; Visit Provider Obstetrics & Gynecology
DX: O99.824 Streptococcus B carrier state complicating childbirth (principal); Z37.0 Single live birth; O99.344 Other mental disorders complicating childbirth; F41.8 Other specified anxiety disorders; O99.324 Drug use complicating childbirth; F12.90 Cannabis use, unspecified, uncomplicated; Z3A.38 38 weeks gestation of pregnancy; Z86.16 Personal history of COVID-19; D06.9 Carcinoma in situ of cervix, unspecified; Z87.891 Personal history of nicotine dependence; K21.9 Gastro-esophageal reflux disease without esophagitis
CPT/HCPCS: 51702; 59025; 59409; 80306; 85025; 87426; 98960; 99211; J0290; J2795

== ENCOUNTER → 2021-01-05 12:00 | Outpatient (BNVA) | payer MEDICAID, SELFPAY | PROVIDERS: Visit Provider Obstetrics & Gynecology | DX: D06.9 Carcinoma in situ of cervix, unspecified (principal); F41.9 Anxiety disorder, unspecified; F32.9 Major depressive disorder, single episode, unspecified; Z30.9 Encounter for contraceptive management, unspecified; Z20.2 Contact with and (suspected) exposure to infections with a predominantly sexual mode of transmission | CPT/HCPCS: 87491; 87591; 87661; 88175 ==

== ENCOUNTER 2021-10-07 06:43 | Emergency (ER) | payer MEDICAID, SELFPAY ==
[2021-10-07 07:00] VITALS: BP 139/83; PULSE 100; RESP 19; TEMP 37; O2SAT 100
--- NOTE | 2021-10-07 07:26 | ED_ITS ---
HPI - Extremity Problem General: Chief complaint: Back Pain/Injury Stated complaint: High [place], Hips Hurting really bad, possibly preg Time Seen by Provider: 10/07/21 06:52 History of Present Illness: HPI Narrative: 36-year-old female presents to the emergency room with complaint of arthralgias. Particularly in her hips she states she also had a fever this morning as had a mild cough began suddenly overnight. Secondarily she relates that she had a positive home test she is on Depo-Provera. She has not previously been vaccinated. She also complaining of pain on right mandibular molar. She has not had any swelling in that area. MD Complaint: joint pain Onset (ago): hour(s) Pain Consistency: constant Location: left, right and lower extremity (Hips) Quality: aching Radiation: none Relieving factors: nothing Exacerbating factors: nothing Associated symptoms: Reports arthralgias; Deny chest pain, fever(s) or rash Review of Systems Const: Denies: fever(s), chills, body aches, change in appetite, fatigue or ma laise ENMT: Denies: throat pain, ear or mastoid pain, nasal discharge or nasal congestion Card: Denies: chest pain, edema, dyspnea on exertion or orthopnea Resp: Reports: non-productive cough; Denies: dyspnea or productive cough GI: Denies: abdominal pain, nausea, vomiting, hematemesis, coffee ground emesis, diarrhea, constipation, bloating, hematochezia or melena : Denies: flank pain, difficulty voiding, dysuria, urinary frequency or urinary urgency Musc: Reports: joint redness Skin/Breast: Denies: rash or pruritus [facility] ED PFSH: Medical History Anxiety and depression Cervical intraepithelial neoplasia III 11/24/2018: Colposcopy. Minimal acetowhite changes. TZ not seen. Stenotic cervix. 11:00 biopsy - rare dysplastic cells. ECC negative. 11/05/2018: ASCUS with positive high risk HPV. 07/13/2015: LEEP (performed in [place]). Path showed AZUL-3 with negative margin. 07/06/2015: Colposcopy (performed in [place]). External biopsy negative. ECC showed AZUL-3. Lab test positive for detection of COVID-19 virus 06/07/2020 Surgical History History of cholecystectomy (~2010) Laparoscopic Family History Grandmother Thyroid disease Maternal Hypertension Maternal Diabetes Maternal Mother Diabetes Thyroid disease Hypertension Family/Other Hypertension Maternal aunt Heart disease Maternal uncle Social History Smoking and tobacco status: former smoker Quit status (tobacco): has quit using tobacco Former quit date comment: Was smoking 1/4 ppd. Started age 31 Alcohol intake: never Other details last substance use: Last use: Mid 05/2020 Female Reproductive History: Date of last menstrual period: 02/22/20 Physical Exam Const: COMMON NORMALS: no acute distress GENERAL APPEARANCE: cooperative and comfortable ORIENTATION/CONSCIOUSNESS: Yes awake, Yes oriented to person, Yes oriented to place and Yes oriented to time HENMT: COMMON NORMALS: normocephalic, atraumatic and hearing grossly normal bilaterally HEAD & SCALP: normocephalic and atraumatic Resp: COMMON NORMALS: normal respiratory effort, No retractions, No use of accessory muscles and clear to auscultation bilaterally AUSCULTATION: clear to auscultation bilaterally Cardio: COMMON NORMALS: regular rate, regular rhythm and No murmurs present (Cardio) RATE: regular rate RHYTHM: regular rhythm GI: COMMON NORMALS: Soft to palpation and No hepatosplenomegaly present AUSCULTATION: Yes normoactive bowel sounds PALPATION: Yes Soft to palpation, No Tenderness to palpation present (GI), No Guarding due to palpation present (GI) and Yes No hepatosplenomegaly present Extremity: COMMON NORMALS: normal to inspection, capillary refill normal, no clubbing, cyanosis or edema, no calf tenderness and no pedal edema Neuro: SENSORIUM/ORIENTATION: Yes oriented to person, Yes oriented to place and Yes oriented to time Skin: COMMON NORMALS: no rashes or lesions noted GENERAL SKIN EXAM: no rashes or lesions noted Course Vital Signs: Vital signs: Vital Signs Temperature 98.6 F 10/07/21 07:00 Pulse Rate 83 10/07/21 11:14 Respiratory Rate 18 10/07/21 10:00 Blood Pressure 128/81 10/07/21 11:14 Pulse Oximetry 99 10/07/21 11:14 MDM - Extremity (Nontraumatic) MDM Narrative Medical decision making narrative: Patient certainly does have dental caries there is no sign of infection at this time swelling of the jaw no gum irritation nontender over that area start on vitamins encouraged follow-up with OB as soon as possible return if has problems. Medical Records Attestation: I reviewed the patient's medical records. Lab Data Attestation: I reviewed the patient's lab results. Result diagrams: 10/07/21 08:02 Labs: Lab Results 10/07/21 10/07/21 10/07/21 08:02 08:15 08:15 WBC 5.4 10^3/uL 10^3/uL (4.0-10.0) RBC 4.25 10^6/uL 10^6/uL (4.1-5.3) Hgb 11.8 g/dL g/dL (11.5-15.3) Hct 35.8 % L % (37.0-47.0) MCV 84.2 fl fl (81-99) MCH 27.8 pg L pg (28.0-34.0) MCHC 33.0 g/dL g/dL (30.0-36.0) RDW 13.7 % % (12.1-15.1) Plt Count 212 10^3/cmm 10^3/cmm (130-400) MPV 10.1 fL fL (7.4-10.4) Neut % (Auto) 78.5 % % Lymph % (Auto) 10.1 % % [place] % (Auto) 9.1 % % Eos % (Auto) 1.3 % % Baso % (Auto) 0.4 % % Neut # (Auto) 4.22 10^3/uL 10^3/uL (1.8-7.7) Lymph # (Auto) 0.5 10^3/uL L 10^3/uL (0.8-4.8) [place] # (Auto) 0.5 10^3/uL 10^3/uL (0.2-0.9) Eos # (Auto) 0.1 10^3/uL 10^3/uL (0.0-0.8) Baso # (Auto) 0.0 10^3/uL 10^3/uL (0.0-0.1) Nucleated RBC % (auto) 0 % % Nucleated RBCs # 0.0 /100WBC /100WBC HCG, Qual Ser , Semi-Qnt Urine Color Yellow (Yellow) Urine Appearance Clear (CLEAR) Urine pH 6 (5-7) Ur Specific [place] 1.020 (1.005-1.030) Urine Protein Neg (Negative) Urine Glucose (UA) Norm (Normal) Urine Ketones Negative (Negative) Urine Blood Neg (Negative) Urine Nitrate Negative (Negative) Urine Bilirubin Neg (Negative) Urine Urobilinogen Norm mg/dL mg/dL (Negative) Ur Leukocyte Esterase Negative (Negative) SARS-CoV-2 RNA (RT-PCR) Detected A (NOT DETECTED) 10/07/21 10/07/21 10/07/21 08:15 09:43 Unknown WBC RBC Hgb Hct MCV MCH MCHC RDW Plt Count MPV Neut % (Auto) Lymph % (Auto) [place] % (Auto) Eos % (Auto) Baso % (Auto) Neut # (Auto) Lymph # (Auto) [place] # (Auto) Eos # (Auto) Baso # (Auto) Nucleated RBC % (auto) Nucleated RBCs # HCG, Qual Positive H Cancelled (Negative) Ser , Semi-Qnt 44561.00 mIU/mL mIU/mL Urine Color Urine Appearance Urine pH Ur Specific [place] Urine Protein Urine Glucose (UA) Urine Ketones Urine Blood Urine Nitrate Urine Bilirubin Urine Urobilinogen Ur Leukocyte Esterase SARS-CoV-2 RNA (RT-PCR) Discharge Plan Discharge Patient Disposition: Home Clinical Impression: Dental caries, Back pain, Currently Condition: Stable Prescriptions: New PNV 29-1 29 mg iron- 1 mg tablet 1 tab PO DAILY Qty: 90 0RF No Action calcium carbonate [Tums] 200 mg calcium (500 mg) tablet,chewable 200 mg PO BID PRN0RF [id number] 28 mg iron- 800 mcg-235 mg capsule 1 cap PO DAILY Qty: 30 12RF ferrous sulfate 325 mg (65 mg iron) tablet 325 mg PO DAILY Qty: 30 12RF famotidine 20 mg tablet 20 mg PO BID 30 Days Qty: 60 6RF norgestimate-ethinyl estradiol [Sprintec (28)] 0.25-35 mg-mcg tablet 1 tab PO DAILY Qty: 84 4RF buspirone 5 mg tablet 5 mg PO BID Qty: 60 5RF sertraline [Zoloft] 50 mg tablet 50 mg PO DAILY Qty: 30 5RF Tylenol Extra Strength 1,000 mg PO Q4H PRN (Reason: Pain) 0RF Discharge Orders: Discharge ED (Routine); Ordered 10/07/21 Ordered By: Hugh Irvin Patient Instructions: Opioid Safety Activity Restrictions/Additional Instructions: Start vitamins daily. Follow-up with your primary care doctor and establish with a door cutter as soon as you are able. If you have any further problems return. Stand Alone Forms: Work/School Release Coding Level of Care Code ED Internal Medicine Doctor for Marcial Fwd Exam Detailed
[2021-10-07 08:07] VITALS: BP 123/74; PULSE 88; RESP 20; O2SAT 97
[2021-10-07 08:11] LABS: Basophils % 0.4 %; Eosinophils # 0.1 10^3/uL (0.0-0.8); Eosinophils % 1.3 %; Hematocrit 35.8 % (37.0-47.0); Hemoglobin 11.8 g/dL (11.5-15.3); Lymphocytes # 0.5 10^3/uL (0.8-4.8); Lymphocytes % 10.1 %; Mean Corpuscular Hemoglobin 27.8 pg (28.0-34.0); Mean Corpuscular Volume 84.2 fl (81-99); Mean Platelet Volume 10.1 fL (7.4-10.4); Monocytes # 0.5 10^3/uL (0.2-0.9); Monocytes % 9.1 %; Neutrophils # 4.22 10^3/uL (1.8-7.7); Neutrophils % 78.5 %; Nucleated Red Blood Cells % 0 %; Platelet Count 212 10^3/cmm (130-400); Red Blood Count 4.25 10^6/uL (4.1-5.3); Red Cell Distribution Width 13.7 % (12.1-15.1); White Blood Count 5.4 10^3/uL (4.0-10.0)
[2021-10-07 08:22] LABS: Add Urine Microscopic? NO; Charge for UA Resulting for Rev
[2021-10-07 08:25] LABS: Bilirubin Urine Neg (Negative); Blood Urine Neg (Negative); Glucose Urine UA Norm (Normal); Ketones Urine Negative (Negative); Leukocyte Esterase Urine Negative (Negative); Nitrate Urine Negative (Negative); Protein Urine Neg (Negative); Urine Appearance Clear (CLEAR); Urine Color Yellow (Yellow); Urobilinogen Urine Norm (Negative); pH Urine 6 (5-7)
[2021-10-07 08:26] LABS: HCG Qualitative Urine. Positive (Negative)
--- NOTE | 2021-10-07 08:29 | USR_ITS ---
PROCEDURE INFORMATION: Exam: US First Trimester, Transabdominal and US , Transvaginal Exam date and time: 10/07/2021 8:29 AM Age: 36 years old Clinical indication: Other: Hip, pelvic pain; Gestational age or lmp: 12 weeks 4 days (by todays ultrasound); ; Additional info: Confirm intruterine preg TECHNIQUE: Imaging protocol: Real-time transabdominal obstetrical ultrasound of the maternal pelvis and a first trimester , less than 14 weeks 0 days, with image documentation. Transvaginal imaging was used for better evaluation of the fetus, adnexa, and/or cervix. COMPARISON: US OB follow up [facility] 08/25/2020 9:43 AM FINDINGS: Gestation: Single viable intrauterine gestation Embryonic/ heart rate: 176 BPM Extra-embryonic membranes/Placenta: Unremarkable. No subchorionic bleed. Amniotic fluid: Amniotic fluid/chorionic fluid is normal for gestational age. BIOMETRY: Gestational age (AUA): 12 weeks 4 days Estimated due date (AUA): 04/17/2022 [place] Neck-Rump length: 6.1 cm which corresponds to 12 weeks 4 days. Femur length (FL): 0.82 cm which corresponds to 12 weeks 3 days. MATERNAL: Uterus: Unremarkable. Cervix: Unremarkable. Right ovary/adnexa: Unremarkable. Ovary not seen. Left ovary/adnexa: Unremarkable. Ovary not seen. Intraperitoneal space: No intraperitoneal free fluid. US/US OB <= 14 weeks fetus [id number] IMPRESSION: Normal single intra in with a gestational age of 12 weeks 4 days and ANNIE of 04/17/2022.
[2021-10-07] MEDS: promethazine 25 mg/mL SDV 1 mL IM (08:31)
[2021-10-07 09:00] VITALS: BP 120/71; PULSE 86; RESP 20; O2SAT 98
[2021-10-07] MEDS: acetaminophen 1,000 MG/100 ML PIGGYBACK 400 MG IV (09:06)
[2021-10-07 10:00] VITALS: BP 121/76; PULSE 92; RESP 18; O2SAT 98
[2021-10-07 11:14] VITALS: BP 128/81; PULSE 83; O2SAT 99
[2021-10-09 02:37] LABS: Quest SARS-CoV-2 RNA DETECTED (NOT DETECTED)
== END 2021-10-07 11:15 | disposition home or self-care (01) ==
PROVIDERS: Emergency Provider Family Medicine
DX: O98.519 Other viral diseases complicating pregnancy, unspecified trimester (principal); U07.1 COVID-19; O26.899 Other specified pregnancy related conditions, unspecified trimester; K02.9 Dental caries, unspecified; M54.9 Dorsalgia, unspecified; Z3A.00 Weeks of gestation of pregnancy not specified; Z87.891 Personal history of nicotine dependence
CPT/HCPCS: 76801; 81003; 81025; 84702; 85025; 87635; 96372; 96374; 99284; J2550

== ENCOUNTER 2022-01-15 14:25 | Outpatient (CLI) | payer MEDICAID, SELFPAY ==
[2022-01-15] VITALS (7 sets, daily range): BP systolic 100–117; BP diastolic 59–75; PULSE 78–88; RESP 18; TEMP 36.3–36.6; BMI 34.2
[2022-01-15 15:18] LABS: Basophils % 0.4 %; Eosinophils # 0.2 10^3/uL (0.0-0.8); Eosinophils % 1.6 %; Hematocrit 33.6 % (37.0-47.0); Hemoglobin 10.7 g/dL (11.5-15.3); Lymphocytes # 1.8 10^3/uL (0.8-4.8); Lymphocytes % 19.9 %; Mean Corpuscular HGB Conc 31.8 g/dL (30.0-36.0); Mean Corpuscular Hemoglobin 27.9 pg (28.0-34.0); Mean Corpuscular Volume 87.5 fl (81-99); Mean Platelet Volume 10.8 fL (7.4-10.4); Monocytes # 0.7 10^3/uL (0.2-0.9); Monocytes % 8.1 %; Nucleated Red Blood Cells % 0 %; Platelet Count 215 10^3/cmm (130-400); Red Blood Count 3.84 10^6/uL (4.1-5.3); Red Cell Distribution Width 14.9 % (12.1-15.1); White Blood Count 9.1 10^3/uL (4.0-10.0)
[2022-01-15 15:22] LABS: Amphetamines Screen Urine Negative (Negative); Barbiturates Screen Urine Negative (Negative); Benzodiazepines Screen Urine Negative (Negative); Cocaine Screen Urine Negative (Negative); Opiate Screen Urine Negative (Negative); PCP Screen Urine Negative (Negative); THC Screen Urine Positive (Negative)
[2022-01-15 15:24] LABS: Add Urine Microscopic? YES; Bilirubin Urine Neg (Negative); Blood Urine Neg (Negative); Glucose Urine UA 1+ (Normal); Ketones Urine Negative (Negative); Leukocyte Esterase Urine Trace (Negative); Nitrate Urine Negative (Negative); Protein Urine Trace (Negative); Specific Gravity, Urine 1.015 (1.005-1.030); Urine Appearance SL Hazy (CLEAR); Urine Color Yellow (Yellow); Urobilinogen Urine Norm (Negative); pH Urine 7 (5-7)
[2022-01-15 15:25] LABS: Add Urine Culture? No; Bacteria Urine 3+ /hpf; Mucus Urine 1+ /hpf; RBC Urine 0-4 /hpf (0-2); Squamous Epithelial Cell Urine 25-40 /hpf (0-5)
[2022-01-15 15:38] LABS: Alanine Aminotransferase 12 U/L (0-33); Albumin Level 3.6 g/dL (3.5-5.2); Alkaline Phosphatase 92 IU/L (35-105); Anion Gap 14.5 (5-19); Aspartate Amino Transferase 13 U/L (0-32); Blood Urea Nitrogen 8 mg/dL (6-20); Carbon Dioxide 23 mmol/L (22-29); Chloride 102 mmol/L (98-107); Globulin 2.6 g/dL (1.3-4.6); Glomerular Filtration Rate 179.6 mL/min (90-130); Glucose 121 mg/dL (65-115); Osmolality Calculated 282 mOsm/kg (285-295); Potassium 3.5 mmol/L (3.5-5.1); Sodium 136 mmol/L (136-145); Total Bilirubin 0.2 mg/dL (0.15-1.2); Total Protein 6.2 g/dL (6.6-8.7)
[2022-01-15 15:42] LABS: Urine Creatinine 168 mg/dL (28-217)
[2022-01-15 15:44] LABS: UPRO/UCREAT Ratio 0.13 mg/mg CR; Urine Protein Random 21 mg/dL
== END 2022-01-15 16:10 | disposition home or self-care (01) ==
LOC: OPOB 14:26 → OBGYN 14:27
PROVIDERS: Visit Provider Family Medicine
DX: O16.9 Unspecified maternal hypertension, unspecified trimester (principal); Z3A.00 Weeks of gestation of pregnancy not specified
CPT/HCPCS: 80053; 80306; 81001; 82570; 84156; 84550; 85025

== ENCOUNTER 2022-02-28 13:15 | Outpatient (CLI) | payer MEDICAID, SELFPAY ==
[2022-02-28 13:25] VITALS: BP 137/74; PULSE 101
[2022-02-28 13:26] VITALS: BMI 32.9
[2022-02-28 13:38] LABS: Add Urine Microscopic? NO
[2022-02-28 13:39] LABS: Charge for UA Resulting for Rev
[2022-02-28 13:42] VITALS: BP 126/69; PULSE 96
[2022-02-28 13:45] VITALS: RESP 18
[2022-02-28 13:45] LABS: Specific Gravity, Urine 1.015 (1.005-1.030); Urine Appearance Clear (CLEAR); Urine Color Orange (Yellow)
[2022-02-28 13:46] LABS: Bilirubin Urine Neg (Negative); Blood Urine Neg (Negative); Glucose Urine UA Norm (Normal); Ketones Urine 1+ (Negative); Leukocyte Esterase Urine Negative (Negative); Nitrate Urine Negative (Negative); Protein Urine Neg (Negative); Urobilinogen Urine 1 mg/dL (Negative); pH Urine 6.5 (5-7)
[2022-02-28 13:57] VITALS: BP 126/64; PULSE 99
[2022-02-28 14:04] LABS: Basophils % 0.4 %; Eosinophils # 0.1 10^3/uL (0.0-0.8); Eosinophils % 1.4 %; Hemoglobin 10.4 g/dL (11.5-15.3); Lymphocytes # 1.6 10^3/uL (0.8-4.8); Mean Corpuscular HGB Conc 32.5 g/dL (30.0-36.0); Mean Corpuscular Hemoglobin 27.2 pg (28.0-34.0); Mean Corpuscular Volume 83.6 fl (81-99); Mean Platelet Volume 11.3 fL (7.4-10.4); Monocytes # 0.4 10^3/uL (0.2-0.9); Monocytes % 6.1 %; Neutrophils # 4.73 10^3/uL (1.8-7.7); Neutrophils % 68.5 %; Nucleated Red Blood Cells % 0 %; Platelet Count 220 10^3/cmm (130-400); Red Blood Count 3.83 10^6/uL (4.1-5.3); Red Cell Distribution Width 15.2 % (12.1-15.1); White Blood Count 6.9 10^3/uL (4.0-10.0)
[2022-02-28 14:10] LABS: Alanine Aminotransferase 16 U/L (0-33); Albumin Level 3.5 g/dL (3.5-5.2); Alkaline Phosphatase 143 IU/L (35-105); Anion Gap 18.2 (5-19); Aspartate Amino Transferase 25 U/L (0-32); Blood Urea Nitrogen 6 mg/dL (6-20); Calcium 8.5 mg/dL (8.5-10.5); Carbon Dioxide 20 mmol/L (22-29); Chloride 104 mmol/L (98-107); Globulin 3.5 g/dL (1.3-4.6); Glomerular Filtration Rate 179.6 mL/min (90-130); Glucose 137 mg/dL (65-115); Osmolality Calculated 286 mOsm/kg (285-295); Potassium 4.2 mmol/L (3.5-5.1); Sodium 138 mmol/L (136-145); Total Bilirubin 0.2 mg/dL (0.15-1.2); Uric Acid 4.6 mg/dL (2.4-5.7)
[2022-02-28 14:10] LABS: Urine Creatinine 239 mg/dL (28-217)
[2022-02-28 14:12] VITALS: BP 130/77; PULSE 91
[2022-02-28 14:12] LABS: UPRO/UCREAT Ratio 0.11 mg/mg CR; Urine Protein Random 27 mg/dL
[2022-02-28 14:27] VITALS: BP 118/75; PULSE 86
== END 2022-02-28 14:45 | disposition home or self-care (01) ==
LOC: OPOB 13:17 → OBGYN 14:34
PROVIDERS: Visit Provider Family Medicine
DX: O26.899 Other specified pregnancy related conditions, unspecified trimester (principal); Z3A.00 Weeks of gestation of pregnancy not specified
CPT/HCPCS: 36415; 59025; 80053; 81003; 82570; 84156; 84550; 85025; 99211

== ENCOUNTER 2022-03-14 15:30 | Outpatient (CLI) | payer MEDICAID, SELFPAY ==
[2022-03-14] VITALS (10 sets, daily range): BP systolic 116–139; BP diastolic 73–88; PULSE 83–113; RESP 18; BMI 32.8
[2022-03-14 15:58] LABS: Basophils % 0.4 %; Eosinophils # 0.1 10^3/uL (0.0-0.8); Eosinophils % 1.1 %; Hematocrit 33.7 % (37.0-47.0); Lymphocytes # 1.4 10^3/uL (0.8-4.8); Mean Corpuscular HGB Conc 32.6 g/dL (30.0-36.0); Mean Corpuscular Volume 82.6 fl (81-99); Mean Platelet Volume 11.3 fL (7.4-10.4); Monocytes # 0.8 10^3/uL (0.2-0.9); Monocytes % 10.4 %; Neutrophils # 4.86 10^3/uL (1.8-7.7); Neutrophils % 67.5 %; Nucleated Red Blood Cells % 0 %; Platelet Count 221 10^3/cmm (130-400); Red Blood Count 4.08 10^6/uL (4.1-5.3); Red Cell Distribution Width 15.5 % (12.1-15.1); White Blood Count 7.2 10^3/uL (4.0-10.0)
[2022-03-14 16:08] LABS: Add Urine Microscopic? YES; Bilirubin Urine 1+ (Negative); Blood Urine Neg (Negative); Glucose Urine UA Norm (Normal); Ketones Urine Negative (Negative); Leukocyte Esterase Urine Negative (Negative); Nitrate Urine Negative (Negative); Protein Urine Neg (Negative); Urine Appearance Clear (CLEAR); Urine Color Yellow (Yellow); Urobilinogen Urine 1 mg/dL (Negative); pH Urine 5 (5-7)
[2022-03-14 16:09] LABS: RBC Urine 0-4 /hpf (0-2); WBC Urine 0-4 /hpf (0-5)
[2022-03-14 16:10] LABS: Add Urine Culture? No; Bacteria Urine 1+ /hpf; Squamous Epithelial Cell Urine 25-40 /hpf (0-5)
[2022-03-14 17:16] LABS: UPRO/UCREAT Ratio 0.14 mg/mg CR; Urine Creatinine 339 mg/dL (28-217); Urine Protein Random 49 mg/dL
[2022-03-14 17:23] LABS: Alanine Aminotransferase 15 U/L (0-33); Albumin Level 3.6 g/dL (3.5-5.2); Alkaline Phosphatase 185 IU/L (35-105); Anion Gap 18.9 (5-19); Aspartate Amino Transferase 14 U/L (0-32); Blood Urea Nitrogen 8 mg/dL (6-20); Calcium 9.2 mg/dL (8.5-10.5); Carbon Dioxide 20 mmol/L (22-29); Chloride 101 mmol/L (98-107); Globulin 3.3 g/dL (1.3-4.6); Glomerular Filtration Rate 179.6 mL/min (90-130); Glucose 89 mg/dL (65-115); Osmolality Calculated 280 mOsm/kg (285-295); Potassium 3.9 mmol/L (3.5-5.1); Sodium 136 mmol/L (136-145); Total Bilirubin 0.2 mg/dL (0.15-1.2); Total Protein 6.9 g/dL (6.6-8.7); Uric Acid 5.1 mg/dL (2.4-5.7)
== END 2022-03-14 18:10 | disposition home or self-care (01) ==
LOC: OPOB 15:38 → OBGYN 15:40
PROVIDERS: Visit Provider Family Medicine
DX: O16.9 Unspecified maternal hypertension, unspecified trimester (principal); Z3A.00 Weeks of gestation of pregnancy not specified
CPT/HCPCS: 36415; 59025; 80053; 81001; 82570; 84156; 84550; 85025; 99211

== ENCOUNTER 2022-03-15 17:10 | Outpatient (CLI) | payer MEDICAID, SELFPAY ==
[2022-03-15 17:10] VITALS: RESP 18
[2022-03-15 17:23] VITALS: BP 141/89; PULSE 90; TEMP 36.3
[2022-03-15 17:42] VITALS: BP 138/79; PULSE 85
[2022-03-15 17:47] VITALS: BMI 32.8
[2022-03-15 17:57] VITALS: BP 144/94; PULSE 83
--- NOTE | 2022-03-15 18:00 | PC.NURSE ---
PATIENT SMILING AND LAUGHING WITH HER CHILDREN, NO FACIAL GRIMACES.
[2022-03-15 18:10] VITALS: RESP 18
[2022-03-15 18:15] VITALS: BP 144/94; PULSE 83; RESP 18; TEMP 36.3
== END 2022-03-15 18:15 | disposition home or self-care (01) ==
LOC: OPOB 17:12 → OBGYN 17:13
PROVIDERS: Visit Provider Family Medicine
DX: O26.899 Other specified pregnancy related conditions, unspecified trimester (principal); Z3A.00 Weeks of gestation of pregnancy not specified; R10.9 Unspecified abdominal pain
CPT/HCPCS: 59025; 87491; 87591; 99211

== ENCOUNTER 2022-03-22 15:19 | Outpatient (CLI) | payer MEDICAID, SELFPAY ==
[2022-03-22 15:30] VITALS: BMI 32.8
[2022-03-22 15:39] VITALS: BP 137/87; PULSE 111
[2022-03-22 15:49] VITALS: RESP 16; TEMP 36.6; TEMP 36.7
[2022-03-22 16:06] LABS: Actim Prom Negative
[2022-03-22 16:37] VITALS: BP 135/83; PULSE 103
[2022-03-22 16:47] VITALS: PULSE 95; O2SAT 98
== END 2022-03-22 16:56 | disposition home or self-care (01) ==
LOC: OPOB 15:30 → OBGYN 15:32
PROVIDERS: Visit Provider Family Medicine
DX: O26.899 Other specified pregnancy related conditions, unspecified trimester (principal); Z3A.00 Weeks of gestation of pregnancy not specified; N89.8 Other specified noninflammatory disorders of vagina
CPT/HCPCS: 59025; 84112

== ENCOUNTER 2022-03-28 14:30 | Outpatient (CLI) | payer MEDICAID, SELFPAY ==
[2022-03-28] VITALS (10 sets, daily range): BP systolic 122–138; BP diastolic 88–98; PULSE 75–82; RESP 18; TEMP 36.9; BMI 33.1
[2022-03-28 16:39] LABS: Basophils % 0.4 %; Eosinophils # 0.1 10^3/uL (0.0-0.8); Eosinophils % 1.3 %; Hematocrit 33.8 % (37.0-47.0); Hemoglobin 10.5 g/dL (11.5-15.3); Lymphocytes # 1.4 10^3/uL (0.8-4.8); Lymphocytes % 19.1 %; Mean Corpuscular HGB Conc 31.1 g/dL (30.0-36.0); Mean Corpuscular Hemoglobin 26.3 pg (28.0-34.0); Mean Corpuscular Volume 84.5 fl (81-99); Mean Platelet Volume 11.3 fL (7.4-10.4); Monocytes # 0.5 10^3/uL (0.2-0.9); Monocytes % 6.5 %; Neutrophils # 5.41 10^3/uL (1.8-7.7); Neutrophils % 71.9 %; Nucleated Red Blood Cells % 0 %; Platelet Count 301 10^3/cmm (130-400); Red Cell Distribution Width 15.3 % (12.1-15.1); White Blood Count 7.5 10^3/uL (4.0-10.0)
[2022-03-28 16:44] LABS: Add Urine Microscopic? YES; Bilirubin Urine Neg (Negative); Blood Urine 3+ (Negative); Glucose Urine UA Norm (Normal); Ketones Urine Negative (Negative); Leukocyte Esterase Urine 1+ (Negative); Nitrate Urine Negative (Negative); Protein Urine Neg (Negative); RBC Urine 15-25 /hpf (0-2); Urine Appearance Clear (CLEAR); Urine Color Yellow (Yellow); Urobilinogen Urine Norm (Negative); pH Urine 6.5 (5-7)
[2022-03-28 16:45] LABS: Add Urine Culture? Yes; Bacteria Urine 4+ /hpf
[2022-03-28 16:46] LABS: Urine Creatinine 70 mg/dL (28-217); Urine Protein Random 13 mg/dL
[2022-03-28 16:46] LABS: Alanine Aminotransferase 17 U/L (0-33); Albumin Level 3.2 g/dL (3.5-5.2); Alkaline Phosphatase 232 IU/L (35-105); Aspartate Amino Transferase 17 U/L (0-32); Blood Urea Nitrogen 7 mg/dL (6-20); Calcium 8.8 mg/dL (8.5-10.5); Carbon Dioxide 20 mmol/L (22-29); Chloride 99 mmol/L (98-107); Globulin 3.8 g/dL (1.3-4.6); Glomerular Filtration Rate 179.6 mL/min (90-130); Glucose 77 mg/dL (65-115); Osmolality Calculated 273 mOsm/kg (285-295); Sodium 133 mmol/L (136-145); Total Bilirubin 0.2 mg/dL (0.15-1.2)
[2022-03-28 16:50] LABS: UPRO/UCREAT Ratio 0.19 mg/mg CR
== END 2022-03-28 17:20 | disposition home or self-care (01) ==
LOC: OPOB 14:34 → OBGYN 14:57
PROVIDERS: Visit Provider Family Medicine
DX: O26.899 Other specified pregnancy related conditions, unspecified trimester (principal); Z3A.00 Weeks of gestation of pregnancy not specified; R10.9 Unspecified abdominal pain; N89.8 Other specified noninflammatory disorders of vagina
CPT/HCPCS: 36415; 59025; 80053; 81001; 82570; 84156; 84550; 85025; 87086; 99211

== ENCOUNTER 2022-03-29 04:00 | Inpatient (IN) | payer MEDICAID, SELFPAY ==
[2022-03-29] VITALS (25 sets, daily range): BP systolic 113–174; BP diastolic 69–111; PULSE 61–103; RESP 16–18; TEMP 36.4–37; O2SAT 92–99; BMI 33.1
--- NOTE | 2022-03-29 04:06 | P.ANESASSM_ITS ---
Pre-Anesthetic Assessment Height/Weight: Height 1.63 m Pulse BP Pulse Ox 88 164/107 98 03/29/22 03:56 03/29/22 03:56 03/29/22 03:41 Preop Diagnosis: IUP Was Beta Liliana taken within 24 hours: N/A Was Clonidine taken within 24 hours: N/A Social No alcohol and No tobacco Exam alert, oriented x 3, clear to auscultation bilaterally and regular rate & rhythm Airway Submandibular: within normal limits Cervical ROM: within normal limits Mallampati: Class II Dentition: full History/ROS No significant history except as noted and No significant complaints Pulmonary None reported CV/HEM None reported None reported Hepatic None reported GI Gastroesophageal Reflux Disease Metabolic None reported Musc/skel None reported Neuropsych None reported Anesthetic Plan ASA status: 2 Anesthesia: Regional (specify below) Other: SAB Risk of > 500 ml blood loss (7ml/kg in children): No Medications/Allergies Home Medications Medication Instructions Recorded Confirmed Last Taken Type vit 123-iron 28 mg-folic 1 cap PO DAILY #30 cap 09/01/20 03/28/22 03/15/22 08:00 Rx acid 800 seo-ycpws-2s 235 mg capsule Allergies Allergy/AdvReac Type Severity Reaction Status Date / Time No Known Allergies Allergy Verified 03/28/22 15:11 [facility] Anesthesia Medical History Anxiety and depression Cervical intraepithelial neoplasia III 11/24/2018: Colposcopy. Minimal acetowhite changes. TZ not seen. Stenotic cervix. 11:00 biopsy - rare dysplastic cells. ECC negative. 11/05/2018: ASCUS with positive high risk HPV. 07/13/2015: LEEP (performed in [place]). Path showed AZUL-3 with negative margin. 07/06/2015: Colposcopy (performed in [place]). External biopsy negative. ECC showed AZUL-3. Lab test positive for detection of COVID-19 virus 06/07/2020 Surgical History History of cholecystectomy (~2010) Laparoscopic Family History Grandmother Thyroid disease Maternal Hypertension Maternal Diabetes Maternal Mother Diabetes Thyroid disease Hypertension Family/Other Hypertension Maternal aunt Heart disease Maternal uncle Social History Smoking and tobacco status: former smoker Quit status (tobacco): has quit using tobacco Former quit date comment: Was smoking 1/4 ppd. Started age 31 Alcohol intake: never Other details last substance use: Last use: Mid 05/2020 Female Reproductive History Date of last menstrual period: 02/22/20 Data Anesthesia Cardiac Studies: No Data to Display
[2022-03-29] MEDS: famotidine 20 mg/2 mL INJ IVP (04:14)
[2022-03-29] MEDS: citric acid-sodium citrate 30 mL UDC PO (04:14)
[2022-03-29] MEDS: metoclopramide 5 mg/mL SDV 2 mL 10 MG IVP (04:14)
[2022-03-29] MEDS: lactated ringers 1,000 ML 999 ML IV (04:15)
[2022-03-29 04:17] LABS: Add Urine Microscopic? NO; Charge for UA Resulting for Rev
[2022-03-29 04:18] LABS: Basophils % 0.3 %; Eosinophils # 0.1 10^3/uL (0.0-0.8); Hematocrit 34.5 % (37.0-47.0); Hemoglobin 10.9 g/dL (11.5-15.3); Lymphocytes # 2.5 10^3/uL (0.8-4.8); Lymphocytes % 25.6 %; Mean Corpuscular HGB Conc 31.6 g/dL (30.0-36.0); Mean Corpuscular Hemoglobin 26.5 pg (28.0-34.0); Mean Corpuscular Volume 83.9 fl (81-99); Mean Platelet Volume 11.2 fL (7.4-10.4); Monocytes # 0.8 10^3/uL (0.2-0.9); Monocytes % 7.9 %; Neutrophils # 6.33 10^3/uL (1.8-7.7); Neutrophils % 64.5 %; Nucleated Red Blood Cells % 0 %; Platelet Count 318 10^3/cmm (130-400); Red Blood Count 4.11 10^6/uL (4.1-5.3); Red Cell Distribution Width 15.5 % (12.1-15.1); White Blood Count 9.8 10^3/uL (4.0-10.0)
[2022-03-29 04:24] LABS: Bilirubin Urine Neg (Negative); Blood Urine Neg (Negative); Glucose Urine UA Norm (Normal); Ketones Urine Negative (Negative); Leukocyte Esterase Urine Negative (Negative); Nitrate Urine Negative (Negative); Protein Urine Neg (Negative); Specific Gravity, Urine 1.015 (1.005-1.030); Urine Appearance Clear (CLEAR); Urine Color Yellow (Yellow); Urobilinogen Urine Norm (Negative); pH Urine 6 (5-7)
[2022-03-29 04:36] LABS: Albumin Level 3.3 g/dL (3.5-5.2); Alkaline Phosphatase 260 IU/L (35-105); Anion Gap 18.2 (5-19); Aspartate Amino Transferase 20 U/L (0-32); Blood Urea Nitrogen 9 mg/dL (6-20); Calcium 9.4 mg/dL (8.5-10.5); Carbon Dioxide 22 mmol/L (22-29); Chloride 101 mmol/L (98-107); Globulin 4.2 g/dL (1.3-4.6); Glomerular Filtration Rate 138.8 mL/min (90-130); Glucose 81 mg/dL (65-115); Osmolality Calculated 282 mOsm/kg (285-295); Potassium 4.2 mmol/L (3.5-5.1); Sodium 137 mmol/L (136-145); Total Bilirubin 0.2 mg/dL (0.15-1.2); Total Protein 7.5 g/dL (6.6-8.7); Uric Acid 5.4 mg/dL (2.4-5.7)
[2022-03-29 04:38] LABS: Urine Creatinine 82 mg/dL (28-217); Urine Protein Random 11 mg/dL
[2022-03-29 04:41] LABS: UPRO/UCREAT Ratio 0.13 mg/mg CR
[2022-03-29 04:48] LABS: Alanine Aminotransferase 19 U/L (0-33)
[2022-03-29 05:01] LABS: Amphetamines Screen Urine Negative (Negative); Barbiturates Screen Urine Negative (Negative); Benzodiazepines Screen Urine Negative (Negative); Cocaine Screen Urine Negative (Negative); Opiate Screen Urine Negative (Negative); PCP Screen Urine Negative (Negative); THC Screen Urine Positive (Negative)
--- NOTE | 2022-03-29 05:44 | PM.OPHPUD ---
Labor & Delivery H&P Update Date of Procedure: March 29, 2022 Date H&P Performed: 03/29/22 Admission Diagnosis: at 37 weeks 2 days gestation Active labor Transverse presentation induced hypertension Gestational Diabetes Mellitus Preop diagnosis: IUP Planned procedure: Primary section
--- NOTE | 2022-03-29 05:48 | P.OP_ITS ---
Operative Report Date of procedure: March 29, 2022 Pre-op diagnosis: malpresentation, transverse lie Procedure done: Primary low transverse section Surgeon: Evita Love MD Estimated blood loss (mL): 700 IV fluids (mL): 1,500 Urine output (mL): 100 Complications: thick, undistended lower uterine segment. Brief History: The patient presented to labor and delivery in active labor with advanced dilation at 7 cm. No presenting part was palpable so bedside ultrasound was done and fetus was found to be in the transverse lie. Procedure: After informed consent the patient was taken to the OR where spinal anesthesia was administered. She was prepped and draped in normal sterile fashion in dorsal supine position with a left lateral tilt. A Pfannenstiel skin incision was made and carried through to the underlying layer of fascia sharply. The fascial incision was then extended laterally using the Mayos. The fascia was grasped with Sycamore clamps and the underlying rectus muscles were dissected off. The peritoneum was then entered bluntly and the incision site was manually stretched. The bladder blade was inserted. The vesicouterine peritoneum was identified and entered sharply using the Metzenbaums. The bladder flap was created digitally and the bladder blade was then reinserted. Uterine incision was made in a transverse fashion in the lower uterine segment which was found to be extremely thickened. There was a decent amount of bleeding while carefully dissecting down to the amniotic membrane. The amniotic membrane was manually ruptured and there was clear fluid. The was noted to be in transverse lie and the lower uterine segment was contracted down. The left aspect of the incision was extended upward using the Mayos. I was then able to reach inside and palpate the 's feet. The infant was then delivered using standard breech maneuvers. The was suctioned at delivery and the cord was clamped and cut. The infant was handed to the waiting pediatric nurse. Cord blood was obtained. The placenta was delivered grossly intact and normal to inspection using fundal pressure. The uterus was very hypertrophied and was somewhat difficult to exteriorized from the abdomen. Once it was exteriorized from the abdomen and a dry sponge was used to clear the uterus of clots and debris. The uterine incision was then repaired using 0 chromic in a running locked fashion. The uterine incision angled slightly upward at the left but was still considered to be in the lower one third of the uterus. A second layer of 0 chromic was used in an imbricating manner. On the left half of the incision the lower uterine segment was very friable and the sutures are easily tore through on multiple attempts. For this reason I went back with a third layer of 0 chromic and was better able to imbricate the left half of the incision. Excellent hemostasis was obtained. The uterus was then returned to the abdomen and irrigation was used to clear the gutters of clots and debris. The uterine incision was reinspected for hemostasis and the peritoneum was then reapproximated using 4-0 Vicryl in a running fashion. The subfascial tissue was inspected for hemostasis and the fascia was then reapproximated using 0 Vicryl in a running fashion. The subcutaneous tissue was irrigated and any small bleeders were coagulated using the Bovie. The subcutaneous tissue was reapproximated using 4-0 Vicryl in a running fashion. The skin was then reapproximated using 4-0 Vicryl in a running fashion on a Altaf needle. Steri- Strips and a pressure bandage were applied. Patient went to recovery in good condition. Sponge instrument and needle counts were correct.
[2022-03-29] MEDS: ketorolac 30 mg/mL INJ IVP ×3 (10:36→22:52)
[2022-03-29] MEDS: dextrose 5%-lactated ringers 1,000 ML 125 ML IV (10:37)
[2022-03-29] MEDS: HYDROcodone-acetaminophen 5-325 mg Tablet PO ×2 (12:12→21:09)
[2022-03-29 17:40] LABS: Hematocrit 28.8 % (37.0-47.0); Hemoglobin 9.3 g/dL (11.5-15.3); Mean Corpuscular HGB Conc 32.3 g/dL (30.0-36.0); Mean Corpuscular Hemoglobin 26.3 pg (28.0-34.0); Mean Corpuscular Volume 81.6 fl (81-99); Mean Platelet Volume 11.6 fL (7.4-10.4); Platelet Count 236 10^3/cmm (130-400); Red Blood Count 3.53 10^6/uL (4.1-5.3); Red Cell Distribution Width 15.4 % (12.1-15.1); White Blood Count 9.4 10^3/uL (4.0-10.0)
[2022-03-29] MEDS: ferrous sulfate EC 325 mg Tablet PO (18:54)
[2022-03-29] MEDS: docusate sodium 100 mg Capsule PO (18:54)
[2022-03-29] MEDS: simethicone 80 mg Chew PO (22:52)
[2022-03-30] MEDS: HYDROcodone-acetaminophen 5-325 mg Tablet PO ×3 (04:46→20:20)
[2022-03-30] MEDS: ketorolac 30 mg/mL INJ IVP (04:47)
[2022-03-30 04:50] VITALS: BP 138/87; PULSE 77; TEMP 37; O2SAT 96
[2022-03-30 09:00] VITALS: BP 142/82; PULSE 93; RESP 16; TEMP 37.1; O2SAT 96
[2022-03-30] MEDS: ferrous sulfate EC 325 mg Tablet PO ×2 (10:17→20:19)
[2022-03-30] MEDS: docusate sodium 100 mg Capsule PO ×2 (10:17→20:19)
[2022-03-30] MEDS: prenatal vitamin Capsule 1 CAP PO (10:17)
[2022-03-30] MEDS: ibuprofen 800 mg tablet PO ×3 (10:18→20:19)
[2022-03-30 15:25] VITALS: BP 149/95; PULSE 93; RESP 16; TEMP 36.5
[2022-03-30 21:20] VITALS: BP 128/87; PULSE 104; TEMP 36.8
[2022-03-31] MEDS: HYDROcodone-acetaminophen 5-325 mg Tablet PO ×2 (02:12→13:43)
[2022-03-31 03:49] VITALS: BP 146/94; PULSE 94; TEMP 36.9; O2SAT 95
[2022-03-31] MEDS: ferrous sulfate EC 325 mg Tablet PO (08:22)
[2022-03-31] MEDS: docusate sodium 100 mg Capsule PO (08:22)
[2022-03-31] MEDS: ibuprofen 800 mg tablet PO (08:22)
[2022-03-31] MEDS: prenatal vitamin Capsule 1 CAP PO (08:23)
[2022-03-31 10:00] VITALS: BP 130/75; PULSE 90; RESP 17; TEMP 37.2; O2SAT 96
--- NOTE | 2022-03-31 12:24 | P.DS_ITS ---
Discharge Providers Date of Admission: 03/29/22 04:00 Date of Discharge: March 31, 2022 Attending Provider at Admission: Evita Love MD Attending Provider at Discharge: Evita Love MD Reason for Visit Reason for Visit: Contractions Hospital Course Hospital Course This is a 36-year-old G9 now P6 who was admitted in active labor. The infant was in transverse lie so a primary section was performed. Mother did well after delivery. She was ambulating, tolerating a regular diet, passing flatus, and had good pain control on the day of discharge. Physical Exam Narrative: Alert and oriented, sitting up in bed watching TV, abdomen soft with appropriate post operative tenderness, incision clean dry and intact with Steri-Strips in place, no calf tenderness, slight extremity edema. Urinary Catheter Management: Wheeler Latex: Cath Placed During This Visit: yes, but has since been removed by the nurse Reason for Continuing Indwelling Catheter: Decision to DC Catheter Urinary Catheter Date of Insertion: 03/29/22 Urinary Catheter Time of Insertion: 04:10 Date Urinary Catheter Removed: 03/29/22 Time Urinary Catheter Discontinued: 14:38 Discharge Data Studies Completed and Pending Laboratory Results WBC 9.4 10^3/uL (4.0-10.0) 03/29/22 17:18 RBC 3.53 10^6/uL (4.1-5.3) L 03/29/22 17:18 Hgb 9.3 g/dL (11.5-15.3) L 03/29/22 17:18 Hct 28.8 % (37.0-47.0) L 03/29/22 17:18 MCV 81.6 fl (81-99) 03/29/22 17:18 MCH 26.3 pg (28.0-34.0) L 03/29/22 17:18 MCHC 32.3 g/dL (30.0-36.0) 03/29/22 17:18 RDW 15.4 % (12.1-15.1) H 03/29/22 17:18 Plt Count 236 10^3/cmm (130-400) 03/29/22 17:18 MPV 11.6 fL (7.4-10.4) H 03/29/22 17:18 Neut % (Auto) 64.5 % 03/29/22 04:10 Lymph % (Auto) 25.6 % 03/29/22 04:10 [place] % (Auto) 7.9 % 03/29/22 04:10 Eos % (Auto) 1.0 % 03/29/22 04:10 Baso % (Auto) 0.3 % 03/29/22 04:10 Neut # (Auto) 6.33 10^3/uL (1.8-7.7) 03/29/22 04:10 Lymph # (Auto) 2.5 10^3/uL (0.8-4.8) 03/29/22 04:10 [place] # (Auto) 0.8 10^3/uL (0.2-0.9) 03/29/22 04:10 Eos # (Auto) 0.1 10^3/uL (0.0-0.8) 03/29/22 04:10 Baso # (Auto) 0.0 10^3/uL (0.0-0.1) 03/29/22 04:10 Nucleated RBC % (auto) 0 % 03/29/22 04:10 Nucleated RBCs # 0.0 /100WBC 03/29/22 04:10 Sodium 137 mmol/L (136-145) 03/29/22 04:10 Potassium 4.2 mmol/L (3.5-5.1) 03/29/22 04:10 Chloride 101 mmol/L (98-107) 03/29/22 04:10 Carbon Dioxide 22 mmol/L (22-29) 03/29/22 04:10 Anion Gap 18.2 (5-19) 03/29/22 04:10 BUN 9 mg/dL (6-20) 03/29/22 04:10 Creatinine 0.5 mg/dL (0.5-0.9) 03/29/22 04:10 GFR Calculation 138.8 mL/min (90-130) H 03/29/22 04:10 Glucose 81 mg/dL (65-115) 03/29/22 04:10 Calculated Osmolality 282 mOsm/kg (285-295) L 03/29/22 04:10 Uric Acid 5.4 mg/dL (2.4-5.7) 03/29/22 04:10 Calcium 9.4 mg/dL (8.5-10.5) 03/29/22 04:10 Total Bilirubin 0.2 mg/dL (0.15-1.2) 03/29/22 04:10 AST 20 U/L (0-32) 03/29/22 04:10 ALT 19 U/L (0-33) 03/29/22 04:10 Alkaline Phosphatase 260 IU/L (35-105) H 03/29/22 04:10 Total Protein 7.5 g/dL (6.6-8.7) 03/29/22 04:10 Albumin 3.3 g/dL (3.5-5.2) L 03/29/22 04:10 Globulin 4.2 g/dL (1.3-4.6) 03/29/22 04:10 Urine Color Yellow (Yellow) 03/29/22 04:10 Urine Appearance Clear (CLEAR) 03/29/22 04:10 Urine pH 6 (5-7) 03/29/22 04:10 Ur Specific Valentine 1.015 (1.005-1.030) 03/29/22 04:10 Urine Protein Neg (Negative) 03/29/22 04:10 Urine Glucose (UA) Norm (Normal) 03/29/22 04:10 Urine Ketones Negative (Negative) 03/29/22 04:10 Urine Blood Neg (Negative) 03/29/22 04:10 Urine Nitrate Negative (Negative) 03/29/22 04:10 Urine Bilirubin Neg (Negative) 03/29/22 04:10 Urine Urobilinogen Norm mg/dL (Negative) 03/29/22 04:10 Ur Leukocyte Esterase Negative (Negative) 03/29/22 04:10 U Random Total Protein 11 mg/dL 03/29/22 04:10 Urine Creatinine 82 mg/dL (28-217) 03/29/22 04:10 Protein/Creatinin Ratio 0.13 mg/mg CR 03/29/22 04:10 Urine Opiates Screen Negative ng/mL (Negative) 03/29/22 04:10 Ur Barbiturates Screen Negative ng/mL (Negative) 03/29/22 04:10 Ur Phencyclidine Scrn Negative ng/mL (Negative) 03/29/22 04:10 Ur Amphetamines Screen Negative ng/mL (Negative) 03/29/22 04:10 U Benzodiazepines Scrn Negative ng/mL (Negative) 03/29/22 04:10 Urine Cocaine Screen Negative ng/mL (Negative) 03/29/22 04:10 U Marijuana (THC) Screen Positive ng/mL (Negative) H 03/29/22 04:10 Vitals Last Vital Signs Temp 98.9 F 03/31/22 10:00 Pulse 90 03/31/22 10:00 Resp 17 03/31/22 10:00 BP 130/75 03/31/22 10:00 Pulse Ox 96 03/31/22 10:00 Discharge Plan Discharge Patient Disposition: Home Condition: Stable Prescriptions: New ibuprofen 800 mg Tablet 800 mg PO TID PRN (Reason: Abdominal Discomfort) Qty: 30 0RF hydrocodone-acetaminophen 5-325 mg Tablet 1 - 2 tab PO Q4H PRN (Reason: Moderate To Severe Pain) Qty: 12 0RF docusate sodium 100 mg Capsule 100 mg PO BID Qty: 60 0RF Continued [id number]-[id number]-[id number] 28 mg iron- 800 mcg-235 mg capsule 1 cap PO DAILY Qty: 30 12RF Discharge Orders: Discharge Order (Routine); Ordered 03/31/22 Ordered By: Evita Love Referrals: Evita Love MD [Physician] - 4-7 days Discharge Diet: Usual diet Discharge Activity: Limit activity as instructed Patient Instructions: Depression (DC), Bleeding (DC), Preeclampsia and Eclampsia After Delivery (GEN), OB [facility], OB Discharge Report, OB Food/Drug Interaction Guide, Opioid Safety, OB Home Care, OB Proud Parent Packet Activity Restrictions/Additional Instructions: Nothing per vagina for 6 weeks. Avoid for at least 12 months! No lifting >10lbs for 2 weeks. Discharge Attestations Time Spent in Discharge Care*: less than 30 min Quality Metrics Clinical Quality Measures [ No reported AMI, CVA or VTE this stay] Coding Level of Care Code Acute Chg FW DC note
[2022-03-31 13:40] VITALS: BP 161/112; PULSE 72; RESP 16
[2022-03-31 13:55] VITALS: BP 158/107; PULSE 78; RESP 16
[2022-03-31 14:34] VITALS: BP 158/107; PULSE 78; RESP 16
== END 2022-03-31 13:59 | disposition home or self-care (01) | DRG 787 ==
LOC: OPOB 05:11 → OBGYN 05:11
PROVIDERS: Admitting Provider Family Medicine; Visit Provider Family Medicine
PROC: 10D00Z1 Extraction of Products of Conception, Low, Open Approach (ICD-10-PCS; CPT 59514; principal; 2022-03-29 04:20)
DX: O64.8XX0 Obstructed labor due to other malposition and malpresentation, not applicable or unspecified (principal); O99.324 Drug use complicating childbirth; O13.4 Gestational [pregnancy-induced] hypertension without significant proteinuria, complicating childbirth; O24.420 Gestational diabetes mellitus in childbirth, diet controlled; F12.90 Cannabis use, unspecified, uncomplicated; Z3A.37 37 weeks gestation of pregnancy; Z37.0 Single live birth
CPT/HCPCS: 36415; 51702; 59025; 59409; 80053; 80306; 81003; 82570; 84156; 84550; 85025; 85027; 96374; 96376; 99211; J1885; J2250; J2274; J2405; J2704; J2765; J3010; J3490; J7030

== ENCOUNTER 2022-11-11 12:19 | Emergency (ER) | payer MEDICAID, SELFPAY ==
[2022-11-11 12:27] VITALS: BP 133/87; PULSE 90; RESP 20; TEMP 36.6; O2SAT 97
--- NOTE | 2022-11-11 12:33 | ED_ITS ---
HPI - Extremity Problem General: Chief complaint: Extremity Injury, Lower Stated complaint: right ankle injury Time Seen by Provider: 11/11/22 12:23 History of Present Illness: Ms. Gaona is a 37-year-old lady presenting to the emergency department for ankle injury. She reports being at her baseline health and was wrestling with her kids when she landed on an inverted right ankle. She felt a pop and heard a pop as well as immediately had pain. Initially she thought that she may have just sprained it so did not come to the emergency department last night however woke up this morning with worsening pain and inability to ambulate. Intensity symptoms is moderate at rest however severe with attempts at ambulation and palpation. No other specific changes in health, exacerbating, or alleviating factors identified. Onset (ago): hour(s) Pain Consistency: constant Location: right and lower extremity Quality: aching Radiation: none Relieving factors: nothing Exacerbating factors: range of motion, weight bearing, walking and palpation Associated symptoms: Reports no associated symptoms Review of Systems General: Reports: 10 or more systems reviewed and unremarkable except in HPI and below PFSH ED PFSH: Medical History Anxiety and depression Cervical intraepithelial neoplasia III 11/24/2018: Colposcopy. Minimal acetowhite changes. TZ not seen. Stenotic cervix. 11:00 biopsy - rare dysplastic cells. ECC negative. 11/05/2018: ASCUS with positive high risk HPV. 07/13/2015: LEEP (performed in [place]). Path showed AZUL-3 with negative margin. 07/06/2015: Colposcopy (performed in [place]). External biopsy negative. ECC showed AZUL-3. Lab test positive for detection of COVID-19 virus 06/07/2020 Surgical History History of cholecystectomy (~2010) Laparoscopic Family History Grandmother Thyroid disease Maternal Hypertension Maternal Diabetes Maternal Mother Diabetes Thyroid disease Hypertension Family/Other Hypertension Maternal aunt Heart disease Maternal uncle Social History Smoking and tobacco status: former smoker Quit status (tobacco): has quit using tobacco Former quit date comment: Was smoking 1/4 ppd. Started age 31 Alcohol intake: never Other details last substance use: Last use: Mid 05/2020 Physical Exam Const: COMMON NORMALS: alert GENERAL APPEARANCE: cooperative and well developed HENMT: COMMON NORMALS: normocephalic and atraumatic HEAD & SCALP: normocephalic and atraumatic Eye: COMMON NORMALS: conjunctivae normal CONJUNCTIVA: Yes conjunctivae normal SCLERA: sclerae normal Neck/C-Spine: COMMON NORMALS: supple GENERAL: Yes trachea midline Resp: COMMON NORMALS: clear to auscultation bilaterally EFFORT & I NSPECTION: Yes able to speak in complete sentences AUSCULTATION: clear to auscultation bilaterally Cardio: COMMON NORMALS: regular rate and regular rhythm RATE: regular rate RHYTHM: regular rhythm GI: COMMON NORMALS: Soft to palpation PALPATION: Yes Soft to palpation and No Tenderness to palpation present (GI) PERCUSSION: normal to percussion Extremity: NARRATIVE EXTREMITY EXAM: Significant distal tibia and fibula edema without specific tenderness palpation, no proximal tenderness or knee tenderness. There is ecchymosis about the lateral malleolus as well as continued edema. CMS intact. Generalized tenderness to palpation on the lateral aspect. GENERAL: Yes normal exam except as noted and No edema Neuro: COMMON NORMALS: moves all extremities SENSORIUM/ORIENTATION: Yes alert and No Orientation impaired Psych: COMMON NORMALS: mental status grossly normal and Normal thought process present THOUGHT PROCESS: Normal thought process present Course Vital Signs: Vital signs: Vital Signs Temperature 97.8 F 11/11/22 12:27 Pulse Rate 76 11/11/22 13:52 Respiratory Rate 16 11/11/22 13:52 Blood Pressure 133/87 11/11/22 12:27 Pulse Oximetry 100 11/11/22 13:52 Oxygen Delivery Me thod 11/11/22 12:27 MDM - Extremity (Nontraumatic) Medical Decision Making 37-year-old lady presenting with ankle injury. Exam as above. CMS intact and injury is closed. X-ray notable for oblique fractures through the distal fibula with adjacent soft tissue hematoma and joint effusion. There is only minimal displacement and I do not feel that closed reduction will further improve this. Patient placed in splint. Nonweightbearing status. Patient given analgesia with moderate improvement within expected range. Plan for outpatient follow-up. Nonweightbearing with crutches. The results of ED evaluation were discussed with the patient including prescriptions and/or symptomatic cares (if applicable) including appropriate and responsible use, followup plan, and return precautions. The patient verbalized understanding and felt safe for discharge. Medical Records I reviewed the patient's medical records. Lab Data I reviewed the patient's lab results. Radiology Impressions Ankle X-Ray 11/11/22 12:38 IMPRESSION: 1. There are oblique fractures through the distal fibula with adjacent soft tissue hematoma. 2. Tibiotalar joint effusion. Foot X-Ray 11/11/22 12:38 IMPRESSION: 1. Minimally displaced oblique fractures through the distal fibula with adjacent soft tissue hematoma. 2. Tibiotalar joint effusion. Discharge Plan Discharge Patient Disposition: Home Clinical Impression: Fracture of distal end of right fibula, Ankle fracture Condition: Stable Prescriptions: New ondansetron 4 mg tablet,disintegrating 4 mg PO Q8H PRN (Reason: nausea and vomiting) Qty: 15 0RF No Action [id number] 28 mg iron- 800 mcg-235 mg capsule 1 cap PO DAILY Qty: 30 12RF (DME) Boot walker See Rx Instructions .Route .MEDSUPPLY Qty: 1 0RF Rx Instructions: As directed ibuprofen 800 mg Tablet 800 mg PO TID PRN (Reason: Abdominal Discomfort) Qty: 30 0RF hydrocodone-acetaminophen 5-325 mg Tablet 1 - 2 tab PO Q4H PRN (Reason: Moderate To Severe Pain) Qty: 12 0RF docusate sodium 100 mg Capsule 100 mg PO BID Qty: 60 0RF oxycodone 5 mg tablet 5 mg PO Q4H PRN (Reason: pain) Qty: 30 0RF Discharge Orders: Discharge ED (Routine); Ordered 11/11/22 Ordered By: Rich Claudio Referrals: Evita Love MD [Primary Care Provider] - Discharge Diet: Usual diet Discharge Activity: Limit activity as instructed Patient Instructions: Ankle Fracture (ED), Crutch Instructions (ED), Splint Care (ED), Opioid Safety Activity Restrictions/Additional Instructions: Thank you for visiting the emergency department. You were seen and evaluated for ankle injury. You are found to have mildly displaced oblique fractures through the distal fibula. You were placed in a splint. I will message case management for orthopedic or podiatry follow-up. Do not bear weight on your right leg. You may use [id number] medications such as acetaminophen and ibuprofen for pain however please do not exceed the daily recommended dosage as listed on the packaging and please keep in mind that many namebrand medications contain the same active ingredients. Please avoid these medications if previously instructed to do so by another physician due to other underlying medical condition. Elevation and ice will also likely help. I will prescribe oxycodone for pain, use this cautiously. Return to the emergency department for new sensory or color changes to the foot, inability to move toes, uncontrolled pain, or anything else that you are concerned about and feel needs emergency department evaluation. Coding Level of Care Code ED Intelligence Officer Basic for Marcial Sands
--- NOTE | 2022-11-11 12:38 | XRR_ITS ---
PROCEDURE INFORMATION: Exam: XR Right Foot Exam date and time: 11/11/2022 12:55 PM Age: 37 years old Clinical indication: Injury or trauma; Other: Wrestling injury; Crushing; Foot; Right; Additional info: Inversion injury TECHNIQUE: Imaging protocol: Radiologic exam of the Right foot. Views: 3 or more views. COMPARISON: No relevant prior studies available. FINDINGS: Bones/joints: Moderate hallux valgus. Normal variant bipartite medial sesamoid. There are minimally displaced oblique fractures through the distal fibula. Tibiotalar joint effusion. Soft tissues: Edema and/or hematoma is present in the soft tissues adjacent to the fracture site. XR/XR foot RT min 3V* [id number] IMPRESSION: 1. Minimally displaced oblique fractures through the distal fibula with adjacent soft tissue hematoma. 2. Tibiotalar joint effusion.
--- NOTE | 2022-11-11 12:38 | XRR_ITS ---
PROCEDURE INFORMATION: Exam: XR Right Ankle Exam date and time: 11/11/2022 12:55 PM Age: 37 years old Clinical indication: Injury or trauma; Other: Wrestling injury; Crushing; Ankle; Right; Additional info: Inversion injury, lateral pain/swelling TECHNIQUE: Imaging protocol: Radiologic exam of the Right ankle. Views: 3 or more views. COMPARISON: No relevant prior studies available. FINDINGS: Bones/joints: There is a tibiotalar joint effusion. Os calcis enthesophyte. There are oblique fractures through the distal fibula. 2 mm lateral displacement of the distal fractured segment. Soft tissues: Edema and/or hematoma is present in the soft tissues adjacent to the fracture site. XR/XR ankle RT min 3V* [id number] IMPRESSION: 1. There are oblique fractures through the distal fibula with adjacent soft tissue hematoma. 2. Tibiotalar joint effusion.
[2022-11-11] MEDS: ketorolac 30 mg/mL INJ IM (12:46)
[2022-11-11] MEDS: morphine 4 mg/mL SDV 1 mL IM (12:46)
[2022-11-11] MEDS: oxyCODONE 5 mg IR Tab/Cap PO (13:41)
[2022-11-11] MEDS: acetaminophen 500 mg Tablet 1000 MG PO (13:41)
[2022-11-11 13:52] VITALS: PULSE 76; RESP 16; O2SAT 100
--- NOTE | 2022-11-12 10:22 | DCPLANNER ---
Addendum entered by Mandi Sequeira 11/15/22 07:58: Patient had a follow up appointment scheduled with Dr. Ernandez at ortho - patient did attend appointment. Original Note: senior group manager had message to schedule a follow up appointment for patient with podiatry. senior group manager sent patients information to the front office staff at podiatry. Patients information will be printed and reviewed. Clinic will call patient with appointment information.
== END 2022-11-11 13:53 | disposition home or self-care (01) ==
PROVIDERS: Emergency Provider Emergency Medicine; PCP Family Medicine
DX: S82.431A Displaced oblique fracture of shaft of right fibula, initial encounter for closed fracture (principal); Z87.891 Personal history of nicotine dependence; X50.1XXA Overexertion from prolonged static or awkward postures, initial encounter
CPT/HCPCS: 29515; 73610; 73630; 96372; 99284; E0114; J1885; J2270

== ENCOUNTER → 2022-11-14 15:43 | Outpatient (BNVA) | payer MEDICAID, SELFPAY | PROVIDERS: PCP Family Medicine; Referring Provider Emergency Medicine; Visit Provider Specialist | DX: S82.831A Other fracture of upper and lower end of right fibula, initial encounter for closed fracture (principal); X50.9XXA Other and unspecified overexertion or strenuous movements or postures, initial encounter; Y93.83 Activity, rough housing and horseplay | CPT/HCPCS: 73610 ==

== ENCOUNTER 2022-11-14 16:48 | Outpatient (CLI) | payer MEDICAID, SELFPAY | END 2022-11-14 16:49 | disposition home or self-care (01) | LOC: SPT 16:48 | PROVIDERS: PCP Family Medicine; Visit Provider Specialist | DX: Z46.89 Encounter for fitting and adjustment of other specified devices (principal); S82.831D Other fracture of upper and lower end of right fibula, subsequent encounter for closed fracture with routine healing; X58.XXXD Exposure to other specified factors, subsequent encounter | CPT/HCPCS: 97760; L4361 ==

== ENCOUNTER 2022-11-16 12:01 | Day surgery (SDC) | payer MEDICAID, SELFPAY ==
[2022-11-16] VITALS (12 sets, daily range): BP systolic 104–130; BP diastolic 65–93; PULSE 74–90; RESP 16–20; TEMP 36.6–37.1; O2SAT 93–99
[2022-11-16] MEDS: sodium chloride 0.9% 1,000 ML 30 ML IV (11:30)
[2022-11-16] MEDS: acetaminophen 1,000 MG/100 ML PIGGYBACK 400 MG IV (12:39)
[2022-11-16] MEDS: CELEcoxib 200 mg Capsule 400 MG PO (12:40)
--- NOTE | 2022-11-16 12:40 | P.ANESASSM_ITS ---
Pre-Anesthetic Assessment Height/Weight: Height 1.63 m Weight 79.379 kg Temp Pulse Resp BP Pulse Ox O2 Del Method 98.3 F 90 16 118/93 95 11/16/22 12:19 11/16/22 12:19 11/16/22 12:19 11/16/22 12:19 11/16/22 12:19 11/16/22 12:20 Preop Diagnosis: Right lateral malleolus fracture Operation Date: 11/16/22 14:40 Proposed Procedures p OPEN REDUCTION INTERNAL FIXATION RIGHT LATERAL MALLELOUS FRACTURE 59964, S82.831A(Right) - Kimberly Ernandez MD Familial anesthetic complications: None Was Beta Liliana taken within 24 hours: N/A Was Clonidine taken within 24 hours: N/A Last intake: Intake Last Liquid Date 11/16/22 Last Liquid Time 08:00 Last Solid Date 11/15/22 Last Solid Time 21:00 Social Tobacco and No alcohol Exam alert, oriented x 3, clear to auscultation bilaterally and regular rate & rhythm Airway Mallampati: Class II Dentition: other (missing teeth) Anesthetic Plan ASA status: 1 Anesthesia: General and Regional (specify below) Risk of > 500 ml blood loss (7ml/kg in children): No Medications/Allergies Home Medications Medication Instructions Recorded Confirmed Last Taken Type vit 123-iron 28 mg-folic 1 cap PO DAILY #30 caps 09/01/20 11/16/22 03/28/22 Rx acid 800 [id number] 235 mg capsule docusate sodium 100 mg capsule 100 mg PO BID #60 caps 03/31/22 11/16/22 Unknown Rx hydrocodone 5 mg-acetaminophen 325 1 - 2 tab PO Q4H PRN Moderate To 03/31/22 11/16/22 11/15/22 21:00 Rx mg tablet Severe Pain #12 tabs ibuprofen 800 mg tablet 800 mg PO TID PRN Abdominal 03/31/22 11/16/22 Unknown Rx Discomfort #30 tabs ondansetron 4 mg disintegrating 4 mg PO Q8H PRN nausea and 11/11/22 11/16/22 Unknown Rx tablet vomiting #15 tabs oxycodone 5 mg tablet 5 mg PO Q4H PRN pain #30 tabs 11/11/22 11/16/22 Unknown Rx Boot walker #1 ea 11/14/22 11/14/22 Unknown Rx Allergies Allergy/AdvReac Type Severity Reaction Status Date / Time No Known Allergies Allergy Verified 11/14/22 15:38 [facility] Anesthesia Medical History Anxiety and depression Cervical intraepithelial neoplasia III 11/24/2018: Colposcopy. Minimal acetowhite changes. TZ not seen. Stenotic cervix. 11:00 biopsy - rare dysplastic cells. ECC negative. 11/05/2018: ASCUS with positive high risk HPV. 07/13/2015: LEEP (performed in [place]). Path showed AZUL-3 with negative margin. 07/06/2015: Colposcopy (performed in [place]). External biopsy negative. ECC showed AZUL-3. Lab test positive for detection of COVID-19 virus 06/07/2020 Surgical History History of cholecystectomy (~2010) Laparoscopic Family History Grandmother Thyroid disease Maternal Hypertension Maternal Diabetes Maternal Mother Diabetes Thyroid disease Hypertension Family/Other Hypertension Maternal aunt Heart disease Maternal uncle Social History Smoking and tobacco status: former smoker Quit status (tobacco): has quit using tobacco Former quit date comment: Was smoking 1/4 ppd. Started age 31 Alcohol intake: never Other details last substance use: Last use: Mid 05/2020 Female Reproductive History Date of last menstrual period: 11/16/22 Data Anesthesia Cardiac Studies: No Data to Display
[2022-11-16] MEDS: gabapentin 300 mg Capsule PO (12:41)
--- NOTE | 2022-11-16 12:56 | ANES.PROC ---
Anesthesia Procedures Procedure/Date: 11/16/22 Nerve Block ^: Nerve Block 1: Main Anesthesia: general anesthesia Time Out Performed: Yes Consent: requested by attending/covering physician, from patient, from other, risks and benefits reviewed and patient agrees to proceed Nerve block location: popliteal (R) Anesthesia monitors applied: pulse oximetry, EKG, BP cuff and oxygen Nerve block position: supine Anesthetic Used: ropivicaine 0.5% (30 ml) and with decadron (4 mg) Ultrasound used to: recognize landmarks Nerve Stimulator Used?: No Interscalene/Femoral BLK: 4 stimuplex 21 g needle used for position and inplane approach, visualize local anesthetic spread and no vascular puncture identified Injection: neg aspiration of heme Patient Tolerated Procedure: well and no complications Complications: none
[2022-11-16 13:07] LABS: OR HCG Qualitative Urine Negative (Negative)
--- NOTE | 2022-11-16 14:30 | P.HPUD_ITS ---
Surgery/Procedure H&P Update DATE OF PROCEDURE: November 16, 2022 DATE H&P PERFORMED: 11/14/22 H&P UPDATE INFORMATION: I have reviewed H&P completed within last 30 days, I have examined patient prior to procedure, No changes to prior documentation and H&P is in [facility] [facility] EMR on date indicated PREOP DIAGNOSIS: Right lateral malleolus fracture PLANNED PROCEDURE: Operation Date: 11/16/22 14:40 Proposed Procedures p OPEN REDUCTION INTERNAL FIXATION RIGHT LATERAL MALLELOUS FRACTURE 37463, S82.831A(Right) - Kimberly Ernandez MD Related Problem List Diagnoses (1) Fracture of distal end of right fibula: Qualifiers: Encounter type: initial encounter Fracture morphology: other fracture Fracture type: closed Qualified Code(s): S82.831A - Other fracture of upper and lower end of right fibula, initial encounter for closed fracture
[2022-11-16] MEDS: ceFAZolin 2,000 MG in sodium chloride 0.9% (plus) 50 ML 100 MG IV (15:05)
[2022-11-16] MEDS: ceFAZolin 1,000 mg SDV 1000 MG IRRIGATION (15:45)
--- NOTE | 2022-11-16 15:47 | XR_ITS ---
WS: [id number] Right ankle, C-arm fluoroscopy, 11/16/2022 Clinical Data: OR PICS Comparison: Right ankle, 11/14/2022 Findings: Dr. Ernandez performed internal fixation of the distal right fibular fracture with a lateral plate and s crews. XR/XR ankle RT min 3V* [id number] Impression: Internal fixation of distal right fibular fracture.
--- NOTE | 2022-11-16 16:44 | PM.OP ---
Operative Report Date of procedure: November 16, 2022 Pre-op diagnosis: Right oblique distal fibular fracture, lateral malleolus Post-op diagnosis: Right oblique distal fibular fracture, lateral malleolus Post-op findings: Displacement at fracture site. Procedure done: Open reduction internal fixation right lateral malleolar fracture, oblique Implants: The [place] 4-hole distal fibular plate with locking screws Specimens removed/disposition: None Pathology: none sent Surgeon: Kimberly Ernandez Project Reservoir Engineer: [facility] operating room technicians Anesthesia: General (Per LMA, ASA 1) Estimated blood loss (mL): 3 Tourniquet time (min): 41 (At 250 mmHg) IV fluids (mL): 500 Urine output (mL): 0 (No Wheeler) Complications: None slightly Findings: Minimally displaced right distal fibula fracture with some comminution Condition: stable Disposition: PACU (Then return to same-day surgery for discharge to home) Brief History: This 37-year-old female patient presented to my office with a minimally displaced right lateral malleolar fracture of the ankle. Her injury date was November 10, 2022. She was roughhousing with her family when she twisted her ankle. She was seen in the emergency department and had x-rays and was placed in a splint. She presented to my office and we discussed her options including continuing care in a cam walker style boot and close monitoring. The other option was to place a lateral plate which would allow her early range of motion but obviously had increased risks of infection and wound healing issues. The patient wished to proceed with operative intervention. I was in agreement with this plan. Consents were signed and questions were answered in the office. Procedure: Patient was seen in the preoperative holding area and leg was marked. Patient was brought to the operating theater and placed on the operating room table. After undergoing adequate general anesthesia per LMA, ASA 1, the patient's right lower extremity was prepped and draped in usual fashion utilizing DuraPrep. The leg was draped free. Fluoroscopy was used throughout the surgical procedure. We did have a tourniquet high on the right lower extremity. This was elevated to 250 mmHg and total tourniquet time was 41 minutes. Tourniquet elevation followed exsanguination of the leg. A surgical pause was performed. At the time of the surgical pause we identified the site and side of surgery as well as the patient's identity and availability of equipment. We also confirmed appropriate administration of IV antibiotics, Ancef 2 g secondary to the patient's allergies. Following the above, an incision was made centering over the patient's distal fibula fracture. The incision was continued proximally and distally after fluoroscopic guidance to allow placement of the plate.? The fracture was identified, and there was some displacement at the fracture site. There was also some comminution. Prior to incision, appropriate plate was chosen. This was a 3 hole distal fibular plate.? This was placed over the fracture once it had been manipulated and held with clamps.? We were able to hold the plate onto the fibula.? Initially, a pin was placed in the distal most aspect of the plate, and the fracture was further manipulated and clamps were placed proximally to hold it in a reduced position. Once the plate was in appropriate position, screw holes were filled with a combination of locking and nonlocking screws after it had been determined that the fracture was appropriately reduced in AP and lateral planes and that the plate was in appropriate position.? The plate was attached uneventfully.? Fluoroscopy continued to demonstrate that screw lengths were appropriate, the plate length was appropriate, and the fracture was nearly anatomically reduced.? Once the plate was in appropriate position and screws have been placed, the wound was copiously irrigated.? Attention was directed to closure. Closure was accomplished with 0 Vicryl in the fascial tissues.? Subcutaneous tissues were closed with 2-0 Monocryl.? The skin was closed with a 3-0 running Monocryl followed by Dermabond, Steri-Strips, OpSite, and sterile soft roll.? This was followed by an Quinten wrap, and the patient was to be returned to her cam walker.? She was to remain nonweightbearing.? The procedure was well-tolerated.? Tourniquet time was 41 minutes at 250 mmHg.? There were no complications and no specimens.? The patient was discharged to home with her grandson. Related Problem List Diagnoses (1) Fracture of distal end of right fibula:
[2022-11-16] MEDS: fentaNYL 50 mcg/mL INJ 2mL IVP (16:58)
[2022-11-16] MEDS: oxyCODONE-APAP 5-325 mg Tablet 1 TAB PO (17:30)
--- NOTE | 2022-11-16 18:02 | ANE.PACU2 ---
Inpatient post-anesthesia follow up: Airway intact: Yes Vital signs: Temperature 98.7 F Pulse Rate 74 Respiratory Rate 16 Blood Pressure 115/75 Pulse Oximetry 95 Oxygen Delivery Me thod Room Air Oxygen Flow Rate 6 Fraction of Inspir ed Oxygen Hydration adequate: Yes Nausea and vomiting: No Pain level: 1 Mental status: Baseline
== END 2022-11-16 18:04 | disposition home or self-care (01) ==
PROVIDERS: Anesthesiology; PCP Family Medicine; Visit Provider Specialist
PROC: (CPT 27792; principal; 2022-11-16 14:20)
DX: S82.431A Displaced oblique fracture of shaft of right fibula, initial encounter for closed fracture (principal); X50.1XXA Overexertion from prolonged static or awkward postures, initial encounter; Z87.891 Personal history of nicotine dependence
CPT/HCPCS: 27792; 73610; 76000; 81025; 84703; C1713; J0131; J0690; J1100; J2405; J2704; J2795; J3010; J7030

== ENCOUNTER → 2022-11-27 13:48 | Outpatient (BNVA) | payer MEDICAID, SELFPAY | PROVIDERS: PCP Family Medicine; Visit Provider Nurse Practitioner Family | DX: S82.831D Other fracture of upper and lower end of right fibula, subsequent encounter for closed fracture with routine healing (principal); X58.XXXD Exposure to other specified factors, subsequent encounter | CPT/HCPCS: 73610 ==

== ENCOUNTER 2022-12-20 14:08 | Emergency (ER) | payer MEDICAID, SELFPAY ==
[2022-12-20 14:26] VITALS: BP 148/93; PULSE 86; RESP 18; TEMP 36.7; O2SAT 96
--- NOTE | 2022-12-20 15:56 | W.ED.EXTPRO ---
HPI - Extremity Problem General: Chief complaint: Extremity Problem,Nontraumatic Stated complaint: surgery site swelling/red Time Seen by Provider: 12/20/22 15:50 History of Present Illness: Patient is a 37-year-old female comes to the ED with pain and swelling around surgical site at right ankle. Patient had ankle fracture back on November [address] Ernandez took patient to the OR to fix ankle fracture and displacement on November 16. She performed an open reduction and hardware was also placed. Back on December 12 patient sole the nurse practitioner Christa from the Ortho clinic for follow-up on procedure and how wound was healing. At that time they said patient appeared to have some cellulitis developing around surgical site and put her on Bactrim. Patient's been taking Bactrim as prescribed. Today she says the surgical site has not improved and is still having pain, redness, warmth and swelling. She says approximately 2 days ago there was some greenish-yellow drainage from surgical site. She rates her pain a 9 out of 10. Denies any other symptoms such as fever, chills, nausea/vomiting, streaking up her right leg. Associated symptoms: Deny chest pain, fever(s) or rash Review of Systems Const: Denies: fever(s), chills or fatigue Eyes: Denies: change in vision or eye discomfort ENMT: Denies: throat pain, odynophagia, nasal discharge or nasal congestion Card: Denies: chest pain, palpitations, edema, swelling of feet/ankles, dyspnea on exertion or orthopnea Resp: Denies: dyspnea, productive cough or non-productive cough GI: Denies: abdominal pain, nausea, vomiting, diarrhea, constipation or hematochezia : Denies: flank pain, dysuria or hematuria Musc: Denies: neck pain, back pain or extremity swelling Skin/Breast: Denies: rash or new lesions Neuro: Denies: headache(s), numbness in extremities or weakness in extremities PFS ED PFSH: Medical History Anxiety and depression Cervical intraepithelial neoplasia III 11/24/2018: Colposcopy. Minimal acetowhite changes. TZ not seen. Stenotic cervix. 11:00 biopsy - rare dysplastic cells. ECC negative. 11/05/2018: ASCUS with positive high risk HPV. 07/13/2015: LEEP (performed in [place]). Path showed AZUL-3 with negative margin. 07/06/2015: Colposcopy (performed in [place]). External biopsy negative. ECC showed AZUL-3. Lab test positive for detection of COVID-19 virus 06/07/2020 Surgical History History of cholecystectomy (~2010) Laparoscopic Family History Grandmother Thyroid disease Maternal Hypertension Maternal Diabetes Maternal Mother Diabetes Thyroid disease Hypertension Family/Other Hypertension Maternal aunt Heart disease Maternal uncle Social History Smoking and tobacco status: former smoker Quit status (tobacco): has quit using tobacco Former quit date comment: Was smoking 1/4 ppd. Started age 31 Alcohol intake: never Other details last substance use: Last use: Mid 05/2020 Physical Exam Const: COMMON NORMALS: no acute distress, patient oriented x3 and alert HENMT: COMMON NORMALS: normocephalic HEAD & SCALP: normocephalic MOUTH: Normal oral and palatal mucosa present THROAT: posterior oropharynx normal and uvula midline Neck/C-Spine: COMMON NORMALS: supple GENERAL: Yes normal visual inspection Resp: COMMON NORMALS: normal respiratory effort, No retractions, No use of accessory muscles and clear to auscultation bilaterally AUSCULTATION: clear to auscultation bilaterally Cardio: COMMON NORMALS: regular rate, regular rhythm, S1 normal heart sound present, S2 normal heart sound present, No gallops present (Cardio), No clicks present (Cardio), No murmurs present (Cardio) and Peripheral pulses 2+ throughout RATE: regular rate RHYTHM: regular rhythm HEART SOUNDS: S1 normal heart sound present and S2 normal heart sound present PERIPHERAL PULSES: Peripheral pulses 2+ throughout GI: COMMON NORMALS: Normal to inspection, nondistended, normoactive bowel sounds present, Soft to palpation, non-tender and no masses PALPATION: Yes Soft to palpation : COMMON NORMALS: Yes no CVA tenderness BLADDER/KIDNEY EXAM: Yes no CVA tenderness Back/Pelvis: COMMON NORMALS: no CVA tenderness Extremity: NARRATIVE EXTREMITY EXAM: Surgical site on right ankle. Localized erythema, swelling warmth and tenderness noted. No purulent drainage seen. No red streaking up the leg. Neuro: COMMON NORMALS: patient oriented x3 SENSORIUM/ORIENTATION: Yes alert GAIT: Yes Normal gait present Skin: GENERAL SKIN EXAM: dry skin Course Vital Signs: Vital signs: Vital Signs Temperature 98.0 F 12/20/22 14:26 Pulse Rate 89 12/20/22 17:15 Respiratory Rate 16 12/20/22 17:15 Blood Pressure 148/93 12/20/22 14:26 Pulse Oximetry 96 12/20/22 14:26 Oxygen Delivery Me thod 12/20/22 14:26 MDM - Extremity (Nontraumatic) Medical Decision Making Patient is a 37-year-old female comes to the ED with pain and swelling around surgical site at right ankle. Patient had ankle fracture back on November [address] Ernandez took patient to the OR to fix ankle fracture and displacement on November 16. She performed an open reduction and hardware was also placed. Back on December 12 patient sole the nurse practitioner Christa from the Ortho clinic for follow-up on procedure and how wound was healing. At that time they said patient appeared to have some cellulitis developing around surgical site and put her on Bactrim. Patient states cellulitis is not improving. Vital stable and patient is afebrile. Surgical site on right ankle. Localized erythema, swelling warmth and tenderness noted. No purulent drainage seen. No red streaking up the leg. X-ray of right ankle showed no acute findings and surgical hardware appears intact. White blood cell count of 7.9 the rest of CBC and CMP are unremarkable. ESR and CRP are little elevated. Blood cultures pending I spoke with Dr. Pepper the orthopedist on-call and told about patient case and sent him pictures of patient's surgical site. He recommended giving patient an IV antibiotic dose here in the ED and then sending her home on clindamycin. He recommended a Vaseline gauze dressing. She can call up to Ortho clinic tomorrow to try to get an appointment that day or SaturdayDecember 24 for follow-up. Patient was given a dose of IV Rocephin here in the ED. She was stable for discharge home and diagnosed with cellulitis. Nurse applied Vaseline gauze dressing to surgical site. She was sent home with a prescription for pain medication and antibiotic. I placed an order with case management for patient to be referred to Ortho [facility] for follow-up on surgical site healing either December 21 or December 24. Return ED precautions given. Patient understood and agreed with plan. Lab Data I reviewed the patient's lab results. 12/20/22 15:51 12/20/22 15:51 Radiology Impressions Ankle X-Ray 12/20/22 16:07 IMPRESSION: 1. Stable changes consistent with prior ORIF of a lateral malleolar fracture. Compression plating with 3 proximal and 3 distal interlocking screws. No evidence for loosening of the surgical hardware. Alignment of the fracture is anatomic. 2. Mild soft tissue swelling over the lateral malleolus, decreased compared with the prior study. Laboratory Results WBC 7.9 10^3/uL (4.0-10.0) 12/20/22 15:51 RBC 4.89 10^6/uL (4.1-5.3) 12/20/22 15:51 Hgb 13.4 g/dL (11.5-15.3) 12/20/22 15:51 Hct 41.6 % (37.0-47.0) 12/20/22 15:51 MCV 85.1 fl (81-99) 12/20/22 15:51 MCH 27.4 pg (28.0-34.0) L 12/20/22 15:51 MCHC 32.2 g/dL (30.0-36.0) 12/20/22 15:51 RDW 14.8 % (12.1-15.1) 12/20/22 15:51 Plt Count 310 10^3/cmm (130-400) 12/20/22 15:51 MPV 10.0 fL (7.4-10.4) 12/20/22 15:51 Neut % (Auto) 53.4 % 12/20/22 15:51 Lymph % (Auto) 34.3 % 12/20/22 15:51 [place] % (Auto) 6.5 % 12/20/22 15:51 Eos % (Auto) 4.3 % 12/20/22 15:51 Baso % (Auto) 0.9 % 12/20/22 15:51 Neut # (Auto) 4.19 10^3/uL (1.8-7.7) 12/20/22 15:51 Lymph # (Auto) 2.7 10^3/uL (0.8-4.8) 12/20/22 15:51 [place] # (Auto) 0.5 10^3/uL (0.2-0.9) 12/20/22 15:51 Eos # (Auto) 0.3 10^3/uL (0.0-0.8) 12/20/22 15:51 Baso # (Auto) 0.1 10^3/uL (0.0-0.1) 12/20/22 15:51 Nucleated RBC % (auto) 0 % 12/20/22 15:51 Nucleated RBCs # 0.0 /100WBC 12/20/22 15:51 ESR 28 mm/hr (0-15) H 12/20/22 15:51 Sodium 135 mmol/L (136-145) L 12/20/22 15:51 Potassium 4.0 mmol/L (3.5-5.1) 12/20/22 15:51 Chloride 100 mmol/L (98-107) 12/20/22 15:51 Carbon Dioxide 24 mmol/L (22-29) 12/20/22 15:51 Anion Gap 15.0 (5-19) 12/20/22 15:51 BUN 15 mg/dL (6-20) 12/20/22 15:51 Creatinine 0.5 mg/dL (0.5-0.9) 12/20/22 15:51 GFR Calculation 138.1 mL/min (90-130) H 12/20/22 15:51 Glucose 81 mg/dL (65-115) 12/20/22 15:51 Calculated Osmolality 280 mOsm/kg (285-295) L 12/20/22 15:51 Calcium 9.3 mg/dL (8.5-10.5) 12/20/22 15:51 Total Bilirubin 0.2 mg/dL (0.15-1.2) 12/20/22 15:51 AST 13 U/L (0-32) 12/20/22 15:51 ALT 12 U/L (0-33) 12/20/22 15:51 Alkaline Phosphatase 126 U/L (35-105) H 12/20/22 15:51 C-Reactive Protein 6.4 mg/L (0.0-4.9) H 12/20/22 15:51 Total Protein 7.7 g/dL (6.6-8.7) 12/20/22 15:51 Albumin 4.4 g/dL (3.5-5.2) 12/20/22 15:51 Globulin 3.3 g/dL (1.3-4.6) 12/20/22 15:51 Discharge Plan Discharge Patient Disposition: Home Clinical Impression: Cellulitis Qualifiers: Site of cellulitis: extremity Site of cellulitis of extremity: lower extremity Laterality: right Qualified Code(s): L03.115 - Cellulitis of right lower limb Condition: Stable Prescriptions: New clindamycin HCl 150 mg capsule 300 mg PO QID 7 Days Qty: 56 0RF No Action (DME) Ryne walker See Rx Instructions .Route .MEDSUPPLY Qty: 1 0RF Rx Instructions: As directed sulfamethoxazole-trimethoprim [Bactrim DS] 800-160 mg tablet 1 tab PO BID 10 Days Qty: 20 0RF ibuprofen 200 mg Capsule 600 mg PO Q6H PRN (Reason: Pain) Discharge Orders: Discharge ED (Routine); Ordered 12/20/22 Ordered By: Omar Pepper Referrals: Evita Love MD [Primary Care Provider] - Discharge Diet: Regular Discharge Activity: Increase activity as tolerated Patient Instructions: Cellulitis (ED) Activity Restrictions/Additional Instructions: Follow-up with medical provider as directed. Contact orthopedic clinic tomorrow morning to try to get appointment either on December 21 or December 24. Take medications as prescribed. Return to the ER or your medical provider if condition worsens. Please read and understand discharge instructions. Thank you for choosing [facility] for your healthcare needs today. Please realize this is an emergency room and that we are providing you with a medical screening exam and this may not be complete and all inclusive of all the testing and or work up that you may need to determine your ailment or severity of your illness. It is very important that you follow up as instructed or that you return to the Emergency Department should you have concerns or if your condition changes or worsens in any way. Coding Level of Care Code ED [employer] Law Clerk for Marcial Sands
--- NOTE | 2022-12-20 16:07 | XRR_ITS ---
PROCEDURE INFORMATION: Exam: XR Right Ankle Exam date and time: 12/20/2022 4:16 PM Age: 37 years old Clinical indication: Pain; Ankle; Right; Prior surgery; Surgery date: Post-operative (0-2 days); Additional info: Ankle pain post-op TECHNIQUE: Imaging protocol: Radiologic exam of the right ankle. Views: 3 or more views. COMPARISON: CR XR ankle RT min 3V* [id number] 11/27/2022 2:07 PM FINDINGS: Bones/joints: Stable changes consistent with prior ORIF of a lateral malleolar fracture. Compression plating with 3 proximal and 3 distal interlocking screws. No evidence for loosening of the surgical hardware. Alignment of the fracture is anatomic. No dislocation. Normal bone mineralization. No joint effusion. Joint spaces are maintained. Ankle mortise is symmetric. Soft tissues: Mild soft tissue swelling over the lateral malleolus, decreased compared with the prior study. XR/XR ankle RT min 3V* [id number] IMPRESSION: 1. Stable changes consistent with prior ORIF of a lateral malleolar fracture. Compression plating with 3 proximal and 3 distal interlocking screws. No evidence for loosening of the surgical hardware. Alignment of the fracture is anatomic. 2. Mild soft tissue swelling over the lateral malleolus, decreased compared with the prior study.
[2022-12-20 16:08] VITALS: RESP 16
[2022-12-20] MEDS: morphine 4 mg/mL SDV 1 mL IVP (16:08)
[2022-12-20] MEDS: ondansetron 2 mg/ML SDV 2 mL 4 MG IVP (16:09)
[2022-12-20] MEDS: cefTRIAXone 2,000 MG in sodium chloride 0.9% (plus) 50 ML 100 MG IV (16:12)
[2022-12-20 16:16] LABS: Basophils # 0.1 10^3/uL (0.0-0.1); Basophils % 0.9 %; Eosinophils # 0.3 10^3/uL (0.0-0.8); Eosinophils % 4.3 %; Hematocrit 41.6 % (37.0-47.0); Hemoglobin 13.4 g/dL (11.5-15.3); Lymphocytes # 2.7 10^3/uL (0.8-4.8); Lymphocytes % 34.3 %; Mean Corpuscular HGB Conc 32.2 g/dL (30.0-36.0); Mean Corpuscular Hemoglobin 27.4 pg (28.0-34.0); Mean Corpuscular Volume 85.1 fl (81-99); Monocytes # 0.5 10^3/uL (0.2-0.9); Monocytes % 6.5 %; Neutrophils # 4.19 10^3/uL (1.8-7.7); Neutrophils % 53.4 %; Nucleated Red Blood Cells % 0 %; Platelet Count 310 10^3/cmm (130-400); Red Blood Count 4.89 10^6/uL (4.1-5.3); Red Cell Distribution Width 14.8 % (12.1-15.1); White Blood Count 7.9 10^3/uL (4.0-10.0)
[2022-12-20 16:22] LABS: Erythrocyte Sedimentation Rate 28 mm/hr (0-15)
[2022-12-20 16:50] LABS: Alanine Aminotransferase 12 U/L (0-33); Albumin Level 4.4 g/dL (3.5-5.2); Alkaline Phosphatase 126 U/L (35-105); Aspartate Amino Transferase 13 U/L (0-32); Blood Urea Nitrogen 15 mg/dL (6-20); C Reactive Protein 6.4 mg/L (0.0-4.9); Calcium 9.3 mg/dL (8.5-10.5); Carbon Dioxide 24 mmol/L (22-29); Chloride 100 mmol/L (98-107); Globulin 3.3 g/dL (1.3-4.6); Glomerular Filtration Rate 138.1 mL/min (90-130); Glucose 81 mg/dL (65-115); Osmolality Calculated 280 mOsm/kg (285-295); Sodium 135 mmol/L (136-145); Total Bilirubin 0.2 mg/dL (0.15-1.2); Total Protein 7.7 g/dL (6.6-8.7)
[2022-12-20 17:15] VITALS: PULSE 89; RESP 16
--- NOTE | 2022-12-21 11:42 | DCPLANNER ---
Addendum entered by Mandi Sequeira 12/26/22 15:37: Patient had a follow up appointment scheduled with ortho - patient did attend appointment Addendum entered by Mandi Sequeira 12/24/22 07:55: Patient has a follow up appointment scheduled for Saturday, December 26, 2022 at 1:00 with Angus at ortho. Original Note: manager truck had message to schedule a follow up appointment for patient with ortho. manager truck sent patients information to the front office staff at ortho. Patients information will be printed and reviewed. Clinic will call patient with appointment information.
== END 2022-12-20 17:17 | disposition home or self-care (01) ==
PROVIDERS: Emergency Medicine; Emergency Provider Physician Assistant; PCP Family Medicine
DX: L03.115 Cellulitis of right lower limb (principal); Z87.891 Personal history of nicotine dependence
CPT/HCPCS: 36415; 73610; 80053; 85025; 85651; 86140; 87040; 96365; 96375; 99284; J0696; J2270; J2405

== ENCOUNTER 2024-02-24 16:27 | Observation (INO) | payer MEDICAID, SELFPAY ==
[2024-02-24] VITALS (11 sets, daily range): BP systolic 121–163; BP diastolic 82–115; PULSE 67–88; RESP 13–23; TEMP 36.6; O2SAT 94–99
--- NOTE | 2024-02-24 16:37 | CTR_ITS ---
PROCEDURE INFORMATION: Exam: CT Head Without Contrast Exam date and time: 02/24/2024 4:41 PM Age: 38 years old Clinical indication: Headache; Additional info: Symptoms of acute stroke TECHNIQUE: Imaging protocol: Computed tomography of the head without contrast. Other technique: STROKE PROTOCOL was implemented. COMPARISON: CT head wo con* [id number] 17/07/2017 21:50 RADIATION DOSE METRICS: Total DLP (mGy-cm): 1082 FINDINGS: Brain: Normal. No hemorrhage. Unremarkable white matter. No mass effect. The sagittal views demonstrate a partially empty sella similar in appearance to the previous study. Cerebral ventricles: No ventriculomegaly. Paranasal sinuses: Visualized sinuses are unremarkable. No fluid levels. Mastoid air cells: Visualized mastoid air cells are well aerated. Bones: Unremarkable. No acute fracture. Soft tissues: Unremarkable. CT/CT head thrombolytic [id number] IMPRESSION: 1. No acute intracranial abnormality. 2. Stable partially empty pituitary sella ASSESSMENT: ASPECTS (Gloria Stroke Program Early CT Score) is 10.
--- NOTE | 2024-02-24 16:37 | XRR_ITS ---
PROCEDURE INFORMATION: Exam: XR Chest Exam date and time: 02/24/2024 4:43 PM Age: 38 years old Clinical indication: Other: AMS; Additional info: RG TECHNIQUE: Imaging protocol: Radiologic exam of the chest. Views: 1 view. COMPARISON: CR XR chest 1V portable [id number] 14/06/2020 21:03 FINDINGS: Lungs: Unremarkable. No consolidation. Pleural spaces: Unremarkable. No pleural effusion. No pneumothorax. Heart/Mediastinum: Unremarkable. No cardiomegaly. Bones/joints: Unremarkable. XR/XR chest 1V portable [id number] IMPRESSION: No acute findings.
--- NOTE | 2024-02-24 16:47 | ED_ITS ---
HPI - Neuro Symptoms/Deficit 2 General: Chief Complaint: Neuro Symptoms/Deficit Stated Complaint: left side numbess and left eye blindess Time Seen by Provider: 02/24/24 16:33 Source: patient Mode of arrival: ambulatory Limitations: no limitations History of Present Illness: 38-year-old female has a history of migr lori headache states she has had a migraine throughout the day she states she is on the phone with her father at 2 this afternoon had [facility] and states that he actually this afternoon at 2 PM. She states that at that moment she had a syncopal event and has had a worsening headache states she is having left-sided numbness and weakness along with some left-sided visual deficits that started as well then. Patient ambulated to the room here. Denies any slurred speech. Associated symptoms: Reports headache(s); Deny chest pain, nausea or vomiting Review of Systems 2 Const: Denies: fever(s), chills, body aches or change in appetite Eyes: Reports: blurry vision; Denies: eye discomfort ENMT: Denies: throat pain or dental pain Card: Denies: chest pain Resp: Denies: dyspnea GI: Denies: abdominal pain, nausea, vomiting or diarrhea Musc: Denies: neck pain or back pain Skin/Breast: Denies: rash Neuro: Reports: headache(s), numbness in extremities and weakness in extremities PFSH ED 2 PFSH: Medical History Lab test positive for detection of COVID-19 virus 06/07/2020 Cervical intraepithelial neoplasia III 11/24/2018: Colposcopy. Minimal acetowhite changes. TZ not seen. Stenotic cervix. 11:00 biopsy - rare dysplastic cells. ECC negative. 11/05/2018: ASCUS with positive high risk HPV. 07/13/2015: LEEP (performed in [place]). Path showed AZUL-3 with negative margin. 07/06/2015: Colposcopy (performed in [place]). External biopsy negative. ECC showed AZUL-3. Anxiety and depression Surgical History History of cholecystectomy (~2010) Laparoscopic Family History Grandmother Thyroid disease Maternal Hypertension Maternal Diabetes Maternal Mother Diabetes Thyroid disease Hypertension Family/Other Hypertension Maternal aunt Heart disease Maternal uncle Social History Smoking and tobacco/nicotine status: former use of tobacco/nicotine Quit status (tobacco/nicotine): has quit using Former quit date comment: Was smoking 1/4 ppd. Started age 31 Alcohol intake: never Substance/Drug Use: former Date of last use: Mid 05/2020 - marijuana NIH stroke score 2 NIHSS: Level Of Consciousness - 1a: 0 Level Of Consciousness Questions - 1b: Both Correct Level Of Consciousness Commands - 1c: Both Correct Best Gaze - 2: Normal Visual Enamorado - 3: Partial Hemianopia Facial Palsy - 4: N ormal Motor Arm Right - 5: No Drift Motor Arm Left - 5: Drift Motor Leg Right - 6: No Drift Motor Leg Left - 6: Drift Limb Ataxia - 7: Absent S ensory - 8: Normal Best Language - 9: No Aphasia Dysarthia - 10: Normal Extinction And Inattention - 11: 0 Score: Total Score: 3 Physical Exam 2 Const: COMMON NORMALS: no acute distress, patient oriented x3 and healthy appearing HENMT: COMMON NORMALS: normocephalic and atraumatic HEAD & SCALP: n ormocephalic and atraumatic Eye: COMMON NORMALS: Equal, round and reactive pupils present and EOMs intact bilaterally PUPIL: Yes Equal, round and reactive pupils present Neck/C-Spine: COMMON NORMALS: full ROM and supple Chest: COMMONS NORMALS: normal inspection of the chest and normal palpation of entire chest wall Resp: COMMON NORMALS: normal respiratory effort, No retractions, No use of accessory muscles and clear to auscultation bilaterally AUSCULTATION: clear to auscultation bilaterally Cardio: COMMON NORMALS: regular rate, regular rhythm and No murmurs present (Cardio) RATE: regular rate RHYTHM: regular rhythm Extremity: COMMON NORMALS: normal to inspection and full ROM Neuro: COMMON NORMALS: patient oriented x3 and moves all extremities S PEECH: speech normal GAIT: Yes Normal gait present OTHER: Patient was able to see my fingers in all 4 quadrants states that she feels like they were blurry though on the left lateral visual field. Patient states that her left arm and leg felt heavy initially when it really lift them I did get her to lift them but she had a slight drift she ambulated to the room without any problems. Psych: COMMON NORMALS: mental status grossly normal, Normal thought process present and cooperative THOUGHT PROCESS: Normal thought process present Skin: COMMON NORMALS: no rashes or lesions noted and no wounds GENERAL SKIN EXAM: no rashes or lesions noted Course 2 Vital Signs: Vital signs: Vital Signs Temperature 97.9 F 02/24/24 16:30 Pulse Rate 74 02/24/24 18:30 Respiratory Rate 19 H 02/24/24 18:30 Blood Pressure 132/105 02/24/24 18:30 Pulse Oximetry 96 02/24/24 18:30 Oxygen Delivery Me thod Room Air 02/24/24 16:30 MDM - Neuro Symptoms/Deficit Medical Decision Making Patient presents with headache along with some left-sided weakness and blurred vision she is likely migraine with an aura her stroke symptoms have completely resolved NIH is now is 0 she is not a tPA candidate. Headache has improved slightly as well she has been under a lot of stress lately with her father being ill and he did pass away today patient was seen in the ER by Dr. Rios and will admit at this time for an MRI and to follow she has been well-appearing here Medical Records I reviewed the patient's medical records. Lab Data I reviewed the patient's lab results. 02/24/24 17:04 02/24/24 17:04 Radiology Impressions Chest X-Ray 02/24/24 16:37 IMPRESSION: No acute findings. Head CT 02/24/24 16:37 IMPRESSION: 1. No acute intracranial abnormality. 2. Stable partially empty pituitary sella ASSESSMENT: ASPECTS (Gloria Stroke Program Early CT Score) is 10. Laboratory Results WBC 8.21 10^3/uL (3.29-11.43) 02/24/24 17:04 RBC 4.76 10^6/uL (3.85-5.65) 02/24/24 17:04 Hgb 13.70 g/dL (11.27-16.99) 02/24/24 17:04 Hct 41.0 % (36-47) 02/24/24 17:04 MCV 86.1 fl (85-98) 02/24/24 17:04 MCH 28.8 pg (27-33) 02/24/24 17:04 MCHC 33.4 g/dL (30-55) 02/24/24 17:04 RDW 13.6 % (12.1-15.1) 02/24/24 17:04 Plt Count 261 10^3/cmm (157-399) 02/24/24 17:04 MPV 10.0 fL (7.4-10.4) 02/24/24 17:04 Neut % (Auto) 62.4 % 02/24/24 17:04 Lymph % (Auto) 27.8 % 02/24/24 17:04 [place] % (Auto) 5.5 % 02/24/24 17:04 Eos % (Auto) 3.2 % 02/24/24 17:04 Baso % (Auto) 0.7 % 02/24/24 17:04 Neut # (Auto) 5.13 10^3/uL (1.8-7.7) 02/24/24 17:04 Lymph # (Auto) 2.3 10^3/uL (0.8-4.8) 02/24/24 17:04 [place] # (Auto) 0.5 10^3/uL (0.2-0.9) 02/24/24 17:04 Eos # (Auto) 0.3 10^3/uL (0.0-0.8) 02/24/24 17:04 Baso # (Auto) 0.1 10^3/uL (0.0-0.1) 02/24/24 17:04 Nucleated RBC % (auto) 0 % 02/24/24 17:04 Nucleated RBCs # 0.0 /100WBC 02/24/24 17:04 PT 12.90 SECONDS (12.1-14.9) 02/24/24 17:04 INR 0.94 (0.8-1.2) 02/24/24 17:04 APTT 27.9 SECONDS (23.9-36.7) 02/24/24 17:04 Sodium 138 mmol/L (136-145) 02/24/24 17:04 Potassium 3.4 mmol/L (3.5-5.1) L 02/24/24 17:04 Chloride 104 mmol/L (98-107) 02/24/24 17:04 Carbon Dioxide 24 mmol/L (22-29) 02/24/24 17:04 Anion Gap 13.4 (5-19) 02/24/24 17:04 BUN 13 mg/dL (6-20) 02/24/24 17:04 Creatinine 0.4 mg/dL (0.5-0.9) L 02/24/24 17:04 GFR Calculation 177.7 mL/min (90-130) H 02/24/24 17:04 Glucose 106 mg/dL (65-115) 02/24/24 17:04 POC Glucose 116 mg/dL (70-110) H 02/24/24 16:53 Calculated Osmolality 287 mOsm/kg (285-295) 02/24/24 17:04 Calcium 8.4 mg/dL (8.5-10.5) L 02/24/24 17:04 Total Bilirubin 0.3 mg/dL (0.15-1.2) 02/24/24 17:04 AST 16 U/L (0-32) 02/24/24 17:04 ALT 17 U/L (0-33) 02/24/24 17:04 Alkaline Phosphatase 104 U/L (35-105) 02/24/24 17:04 Total Protein 7.3 g/dL (6.6-8.7) 02/24/24 17:04 Albumin 4.5 g/dL (3.5-5.2) 02/24/24 17:04 Globulin 2.8 g/dL (1.3-4.6) 02/24/24 17:04 Urine Color Yellow (Yellow) 02/24/24 19:09 Urine Appearance Slightly cloudy (CLEAR) 02/24/24 19:09 Urine pH 5 (5-7) 02/24/24 19:09 Ur Specific [place] 1.030 (1.005-1.030) 02/24/24 19:09 Urine Protein Trace (Negative) 02/24/24 19:09 Urine Glucose (UA) Norm (Normal) 02/24/24 19:09 Urine Ketones 1+ (Negative) H 02/24/24 19:09 Urine Blood 3+ (Negative) H 02/24/24 19:09 Urine Nitrate Negative (Negative) 02/24/24 19:09 Urine Bilirubin Neg (Negative) 02/24/24 19:09 Urine Urobilinogen Norm mg/dL (Negative) 02/24/24 19:09 Ur Leukocyte Esterase Negative (Negative) 02/24/24 19:09 Ethyl Alcohol < 10 mg/dL (0-10) 02/24/24 17:04 All radiology interpretation(s) finalized by discharge EKG Data EKG 1: I personally reviewed and interpreted this EKG as follows: EKG interpretation date: 02/24/24 EKG interpretation time: 16:50 Interpretation: nsr hr [address] or t wave abnormalities qrs 93 qtc 401 Discharge Plan Discharge Patient Disposition: Admitted As Inpatient Clinical Impression: Headache, Paresthesia Condition: Stable Prescriptions: No Action (DME) Ryne swartz See Rx Instructions .Route .MEDSUPPLY Qty: 1 0RF Rx Instructions: As directed sulfamethoxazole-trimethoprim [Bactrim DS] 800-160 mg tablet 1 tab PO BID 10 Days Qty: 20 0RF sulfamethoxazole-trimethoprim [Bactrim DS] 800-160 mg tablet 1 tab PO BID Qty: 14 0RF ibuprofen 200 mg Capsule 600 mg PO Q6H PRN (Reason: Pain) Referrals: Evita Love MD [Primary Care Provider] - Coding Level of Care Code ED Framing Manager for Ch[facility] Shavon
--- NOTE | 2024-02-24 16:50 | ECG_ITS ---
[facility] Test Date: 2024-02-24 Pat Name: Terra Gaona Department: Room: Gender: Female Viner Operator: : 1985 Requested By: Nelda Dunn Order Number: [id number] Riley MD: Jose Luis Vieyra M.D. Measurements Intervals [place] Rate: 77 P: 60 [place]: 164 QRS: 39 QRSD: 93 T: 51 QT: 369 QTc: 419 Interpretive Statements SINUS RHYTHM No previous ECG available for comparison Electronically Signed On 02-25-2024 7:26:27 CDT by Jose Luis Vieyra M.D. [email or web address]
[2024-02-24 16:57] LABS: Glucose Point of Care 116 mg/dL (70-110)
[2024-02-24 17:10] LABS: Basophils # 0.1 10^3/uL (0.0-0.1); Basophils % 0.7 %; Eosinophils # 0.3 10^3/uL (0.0-0.8); Eosinophils % 3.2 %; Lymphocytes # 2.3 10^3/uL (0.8-4.8); Lymphocytes % 27.8 %; Mean Corpuscular HGB Conc 33.4 g/dL (30-55); Mean Corpuscular Hemoglobin 28.8 pg (27-33); Mean Corpuscular Volume 86.1 fl (85-98); Monocytes # 0.5 10^3/uL (0.2-0.9); Monocytes % 5.5 %; Neutrophils # 5.13 10^3/uL (1.8-7.7); Neutrophils % 62.4 %; Nucleated Red Blood Cells % 0 %; Platelet Count 261 10^3/cmm (157-399); Red Blood Count 4.76 10^6/uL (3.85-5.65); Red Cell Distribution Width 13.6 % (12.1-15.1); White Blood Count 8.21 10^3/uL (3.29-11.43)
--- NOTE | 2024-02-24 17:43 | P.CONIM_ITS ---
Providers/Reason For Consult 2 Consulting Physician/Specialty*: Henry Rios MD neurology and epilepsy Reason for Consult*: Acute care/code stroke emergency department room #6 Primary Care Provider: Evita Love MD History of Present Illness History of Present Illness Terra Gaona is a 38 year old female with a history of anxiety and cancer of the cervix. The patient also reports a history of untreated intractable migraine headaches associated with transient visual field deficits. On 02/24/2024 the patient stated that she had just returned home from work and was talking on the telephone to her father who was critically ill with metastatic lung cancer living in [place]. Patient stated that there were others around her father during his last moments of life. Patient stated that she was on the telephone with her father who was unable to speak secondary to his illness and told her father that She loved him . Immediately after she said those words to her father she was told that her father had . The patient was reported to become very upset and began crying uncontrollably. The patient stated that while she was crying she felt it a weird sensation in her head which she described as bifrontal and temporal throbbing headache pain associated with partial vision loss in her eyes but worse in the left eye associated with blurred vision, and chest pain. The patient was reported to walk outside of the home and then stood in the doorway of the home and then the patient was reported to sit down and was observed by the family to experience loss of consciousness for approximately 30 seconds. Patient was then reported to complain of left arm and left leg numbness. Around 1:30 PM on 02/24/2024. The patient was brought via car to [facility] emergency department and admitted to room #6. Code stroke was initiated at 4:38 PM on 02/24/2024. Glucose Accu-Chek 116. Initial blood pressure reading in the emergency room 163/115 but later the patient blood pressure was reported to be 141/103 with a heart rate of 81 O2 saturation is 99%. NIH score = 1 by the neurology department secondary to patient's report of partial vision loss in the left eye. Noncontrast head CT 02/24/2024 negative for acute findings. There was reports of stable partial empty sella. Since the patient's clinical examination revealed NIH score = 1. The patient was not a candidate for thrombolytics and no thrombolytics were administered. Additional history of present illness: Intractable headaches: According to the patient she has been experiencing migraine type headaches for the past 16 years. According to the patient she was experiencing intractable migraine headaches when she was in [place]. The patient reports that the pain is a severe throbbing sensation associated with nausea and vomiting. Patient reports that the headaches are associated with partial visual loss. According to the patient she has never been treated for the migraine headaches. Patient denied any warning prior to the onset of the headaches. Exact frequency of the headaches is unclear but the patient reports that the headaches occur often. Cervical cancer: The patient also reports a history of cervical cancer but stated that the cancer has not been addressed since she was at that time. Patient reports that her last was 2 years ago but she has not followed up with the oncologist or occasional caregiver. The patient reports that she has been experiencing a lot of menstrual discomfort with heavy menses and stated that she has been experiencing heavy menses for the past 4 months. The patient also reports being diagnosed with anxiety by a physician years ago but according to the patient she was never started on any treatment since she never returned to the physician for treatment. Left hand numbness and pain: The patient reports that she has been experiencing intermittent left hand pain and numbness involving the first digit of the left hand and palm with radiation to her wrist and up to her elbow worse with activity. Syncope and chest pain: The patient reports a history of intermittent chest pains as well as history of syncope in the past with activity when she was in the . Drug allergies: Gadolinium and iodinated contrast medium which resulted in anaphylaxis and bleeding from her eyes and body Current medications: Medical marijuana as needed Past medical history: Anxiety Cervical cancer Norplant left arm Heavy menses Intractable migraine headaches without aura Right carpal tunnel syndrome Habits: Patient admits to smoking medical marijuana intermittently Family history: Remarkable for a father who recently from metastatic lung cancer and prostate cancer Remarkable for a mother with pancreatic cancer Occupation: The patient is employed at a convenience store Review of Systems 2 General: Reports: 10 or more systems reviewed and unremarkable except in HPI and below Medications/Allergies Home Medications Medication Instructions Recorded Confirmed Last Taken Type Boot walker #1 ea 11/14/22 12/31/22 Unknown Rx sulfamethoxazole 800 1 tab PO BID 10 days #20 tabs 12/12/22 12/31/22 12/20/22 Rx mg-trimethoprim 160 mg tablet (Bactrim DS) ibuprofen 200 mg capsule 600 mg PO Q6H PRN Pain 12/20/22 12/31/22 12/20/22 History sulfamethoxazole 800 1 tab PO BID #14 tabs 01/16/23 01/16/23 Unknown Rx mg-trimethoprim 160 mg tablet (Bactrim DS) Allergies Allergy/AdvReac Type Severity Reaction Status Date / Time Iodinated Contrast Media Allergy ALGY-Anaphy Verified 02/24/24 16:40 laxis PFSH Acute 2 PFSH: Medical History Lab test positive for detection of COVID-19 virus 06/07/2020 Cervical intraepithelial neoplasia III 11/24/2018: Colposcopy. Minimal acetowhite changes. TZ not seen. Stenotic cervix. 11:00 biopsy - rare dysplastic cells. ECC negative. 11/05/2018: ASCUS with positive high risk HPV. 07/13/2015: LEEP (performed in [place]). Path showed AZUL-3 with negative margin. 07/06/2015: Colposcopy (performed in [place]). External biopsy negative. ECC showed AZUL-3. Anxiety and depression Surgical History History of cholecystectomy (~2010) Laparoscopic Family History Grandmother Thyroid disease Maternal Hypertension Maternal Diabetes Maternal Mother Diabetes Thyroid disease Hypertension Family/Other Hypertension Maternal aunt Heart disease Maternal uncle Social History Smoking and tobacco/nicotine status: former use of tobacco/nicotine Quit status (tobacco/nicotine): has quit using Former quit date comment: Was smoking 1/4 ppd. Started age 31 Alcohol intake: never Substance/Drug Use: former Date of last use: Mid 05/2020 - marijuana Vitals/I&O/Wt Last Vital Signs Temp 97.9 F 02/24/24 16:30 Pulse 88 02/24/24 16:30 Resp 16 02/24/24 16:30 BP 163/115 02/24/24 16:30 Pulse Ox 97 02/24/24 16:30 O2 Del Method Room Air 02/24/24 16:30 Weight last 48 hrs Weight 160 lb Physical Exam 2 Narrative: NIH score=1 (secondary to reports of partial visual loss in the left eye) Glucose Accu-Chek 116 Blood pressure 141/103, heart rate 81 O2 saturation 99% on room air The patient is alert and oriented x 3. Speech fluent. Head normocephalic. Neck supple. Cranial nerves II through XII intact. There was no signs of any facial weakness. Patient was able to protrude her tongue. Pupils 4 mm round reactive to light and accommodation. Extraocular movements intact. There were no nystagmus. Visual farmer the patient reported partial visual field deficit in the left temporal visual via confrontation while the patient was lying on the stretcher. Motor testing 5/5 bilaterally. There was no drift. Handgrips appeared to be symmetrical bilaterally. Patient did report pain in the left thumb wrist and forearm during handgrip testing. Pulses 3+ bilaterally. There was no cyanosis or edema. Deep tendon reflexes 2+ bilaterally. Plantar responses flexor bilaterally. There was no clonus. Sensory examination was intact to touch. Throat clear. Lungs clear. Heart regular rhythm and rate. Extremities were negative for clubbing cyanosis or edema. Data 02/24/24 17:04 02/24/24 17:04 A&P Assessment and plan (1) Headache: Impression: 1. Code stroke/acute care secondary to patient complaint of headache and left temporal visual deficit on 02/24/2024 at 1:30 PM. NIH score =1. Therefore patient was not a candidate for thrombolytics. Code stroke initiated 4:38 PM on 02/24/2024. Note: Patient's symptoms suggestive of intractable migraine headaches 2. History of intractable migraine headaches with history of transient partial visual field deficits for 16 or more years 3. Anxiety 4. Cervical cancer 5. Heavy menses 6. Left hand and wrist pain 7. History of right carpal tunnel syndrome Plan: 1. Recommend obtaining noncontrast head MRI (patient reports severe anaphylactic reaction to IV contrast medium as well as gadolinium) 2. Recommend obtaining carotid duplex study to assess for carotid or vertebral artery stenosis 3. Recommend 2D echocardiogram to assess for cardiac dysfunction 4. Recommend gynecology and oncology consults for history of cervical cancer, cervix pain and reports of heavy menses and to address Norplant implant in the left arm. 5. Recommend obtaining labs for TSH, free T3, free T4, and magnesium 6. Recommend cardiac evaluation for history of chest pain and syncope 7. Patient given trial of IV Zofran 4 mg x 1 dose with Tylenol 650 mg p.o. x 1 dose in the emergency room for headaches 8. If head MRI is unrevealing and no contraindications from cardiology, oncology or ANTENNA RIGGER standpoint, will recommend trial of calcitonin gene related peptide inhibitors such as Ubrelvy, Nurtec ODT, Qulipta, Ajovy, Aimovig, Emgality or intravenous Yvepti. 9. Recommend psychiatric consult for history of anxiety 10. Consider obtaining lab for vitamin D, B12, folate, methylmalonic acid and homocystine 11. Consider having patient undergo NCV study on the upper extremities to assess for bilateral carpal tunnel syndrome (2) Vision decreased: Consult Attestations 2 Medical Necessity Statement: The patient was evaluated by neurology for code stroke/acute care Coding Level of Care Code 01694 Diagnoses Headache R51.9 Vision decreased H54.7
[2024-02-24 17:50] LABS: Alanine Aminotransferase 17 U/L (0-33); Albumin Level 4.5 g/dL (3.5-5.2); Alkaline Phosphatase 104 U/L (35-105); Anion Gap 13.4 (5-19); Aspartate Amino Transferase 16 U/L (0-32); Blood Urea Nitrogen 13 mg/dL (6-20); Calcium 8.4 mg/dL (8.5-10.5); Carbon Dioxide 24 mmol/L (22-29); Chloride 104 mmol/L (98-107); Creatinine Clr Calc Pharmacy 184.3688; Globulin 2.8 g/dL (1.3-4.6); Glomerular Filtration Rate 177.7 mL/min (90-130); Glucose 106 mg/dL (65-115); Osmolality Calculated 287 mOsm/kg (285-295); Potassium 3.4 mmol/L (3.5-5.1); Sodium 138 mmol/L (136-145); Total Bilirubin 0.3 mg/dL (0.15-1.2); Total Protein 7.3 g/dL (6.6-8.7)
[2024-02-24 17:51] LABS: Alcohol Level < 10 mg/dL (0-10)
[2024-02-24 17:56] LABS: INR 0.94 (0.8-1.2); Partial Thromboplastin Time 27.9 SECONDS (23.9-36.7)
[2024-02-24] MEDS: diphenhydrAMINE 50 mg/mL SDV 1mL IVP (18:03)
[2024-02-24] MEDS: acetaminophen 325 mg Tablet 650 MG PO (18:03)
[2024-02-24] MEDS: metoclopramide 5 mg/mL SDV 2 mL 10 MG IVP (18:04)
[2024-02-24 19:21] LABS: Add Urine Microscopic? YES; Bilirubin Urine Neg (Negative); Blood Urine 3+ (Negative); Glucose Urine UA Norm (Normal); Ketones Urine 1+ (Negative); Leukocyte Esterase Urine Negative (Negative); Nitrate Urine Negative (Negative); Protein Urine Trace (Negative); Urine Appearance Slightly Cloudy (CLEAR); Urine Color Yellow (Yellow); Urobilinogen Urine Norm (Negative); pH Urine 5 (5-7)
[2024-02-24 19:25] LABS: Add Urine Culture? No; Bacteria Urine 1+ /hpf; Mucus Urine 2+ /hpf; WBC Urine 0-4 /hpf (0-5)
[2024-02-24 19:26] LABS: Amphetamines Screen Urine Negative (Negative); Barbiturates Screen Urine Negative (Negative); Benzodiazepines Screen Urine Negative (Negative); Cocaine Screen Urine Negative (Negative); Opiate Screen Urine Negative (Negative); PCP Screen Urine Negative (Negative); THC Screen Urine Positive (Negative)
--- NOTE | 2024-02-24 19:45 | PM.HP ---
Providers/Chief Complaint Primary Care Provider: Evita Love MD Chief Complaint: left side numbess and left eye blindess History of Present Illness Terra Gaona is a 38 year old female with a past medical history significant for migraine headaches, anxiety, cervical cancer, and right-sided carpal tunnel syndrome who presented emergency department who presents to the emergency department with strokelike symptoms. Patient reports symptoms of migraine all day long. She found out this afternoon that her father . At that time she had an acute stress response with syncopal event followed by worsening headache associated with new onset left-sided numbness and weakness. She endorses associated left-sided visual defects. She denies any dysphagia or slurred speech. Denies other alleviating or aggravating factors. Per her history of migraines, she reports she typically has visual symptoms associated with her migraines. In the emergency department, neurology was consulted due to strokelike symptoms. At that time, her NIH was found to be 1 for visual field deficits. Head CT was negative for acute findings. No thrombolytics were recommended by neurology. Review of Systems Narrative: A complete review of systems was obtained and is negative except as stated in HPI. Medications/Allergies Home Medications Medication Instructions Recorded Confirmed Last Taken Type Boot walker #1 ea 11/14/22 12/31/22 Unknown Rx sulfamethoxazole 800 1 tab PO BID 10 days #20 tabs 12/12/22 12/31/22 12/20/22 Rx mg-trimethoprim 160 mg tablet (Bactrim DS) ibuprofen 200 mg capsule 600 mg PO Q6H PRN Pain 12/20/22 12/31/22 12/20/22 History sulfamethoxazole 800 1 tab PO BID #14 tabs 01/16/23 01/16/23 Unknown Rx mg-trimethoprim 160 mg tablet (Bactrim DS) Allergies Allergy/AdvReac Type Severity Reaction Status Date / Time Iodinated Contrast Media Allergy ALGY-Anaphy Verified 02/24/24 16:40 laxis PFSH Acute PFSH: Medical History (Updated 02/24/24 @ 21:16 by Omar Mahoney MD) Wound dehiscence Cellulitis Labial cyst care and examination Lab test positive for detection of COVID-19 virus 06/07/2020 Cervical intraepithelial neoplasia III 11/24/2018: Colposcopy. Minimal acetowhite changes. TZ not seen. Stenotic cervix. 11:00 biopsy - rare dysplastic cells. ECC negative. 11/05/2018: ASCUS with positive high risk HPV. 07/13/2015: LEEP (performed in [place]). Path showed AZUL-3 with negative margin. 07/06/2015: Colposcopy (performed in [place]). External biopsy negative. ECC showed AZUL-3. Anxiety and depression Surgical History (Updated 02/24/24 @ 21:16 by Omar Mahoney MD) Postoperative state History of cholecystectomy (~2010) Laparoscopic Family History Grandmother Thyroid disease Maternal Hypertension Maternal Diabetes Maternal Mother Diabetes Thyroid disease Hypertension Family/Other Hypertension Maternal aunt Heart disease Maternal uncle Social History Smoking and tobacco/nicotine status: former use of tobacco/nicotine Quit status (tobacco/nicotine): has quit using Former quit date comment: Was smoking 1/4 ppd. Started age 31 Alcohol intake: never Substance/Drug Use: former Date of last use: Mid 05/2020 - marijuana Vitals/I&O/Wt Last Vital Signs Temp 97.9 F 02/24/24 16:30 Pulse 74 02/24/24 18:30 Resp 19 H 02/24/24 18:30 BP 132/105 02/24/24 18:30 Pulse Ox 96 02/24/24 18:30 O2 Del Method Room Air 02/24/24 16:30 Weight last 48 hrs Weight 72.575 kg Physical Exam Narrative: General: Patient is awake and alert. Appears fatigued, but pleasant. Head: Normocephalic. Atraumatic. EOM intact. No facial droop. Pupils are equal and equally reactive to light. Neck: No JVD. Cardiovascular: RRR. No gallops. No murmurs. No peripheral edema. Lungs: Clear to auscultation, no use of accessory muscles, no crackles or wheezes. Skin: No jaundice. No rashes. Abdomen: Normal bowel sounds, abdomen soft and nontender. Genito Urinary: Genital exam not performed since complaints not related. Rectal: Rectal exam not performed since no symptoms indicated blood loss. Extremities: No cyanosis or clubbing. Musculoskeletal: 5/5 strength, normal range of motion, no swollen or erythematous joints. Neurological: Moves all 4 extremities. Strength symmetrical in all 4 extremities. Left-sided extremities with reported decrease sensation. No myoclonus. Cranial nerves II through XII grossly intact other than reported deficit in left visual field.. Data 02/24/24 17:04 02/24/24 17:04 A&P Assessment and plan (1) Stroke-like symptom: Migraine associated with strokelike symptoms Neurology evaluated, appreciate recommendations Anaphylaxis to gadolinium and iodine contrast noted Neurochecks EKG with sinus rhythm, continue continuous telemetry monitoring to evaluate for underlying arrhythmia Head MRI without contrast Echo Carotid duplex given contrast allergy Analgesics as needed Antiemetics as needed Check lipids and A1c Supportive care (2) Anxiety and depression: Not on pharmacological therapy Acute grief response from the loss of her father expected Psychosocial support offered (3) Hypokalemia: Replace potassium (4) Marijuana use: Would benefit from cessation (5) Cervical intraepithelial neoplasia III: Likely would benefit from outpatient follow-up, consider referral at discharge Plan DVT prophylaxis: Lovenox CODE STATUS: Full code Attestations Medical Necessity Statement*: Patient presents with severe migraine associated with new onset strokelike symptoms in the setting of an acute stress response with expected hospitalization not to cross 2 midnights for acute stroke evaluation, serial neurological exams, and supportive care. Coding Level of Care Code Acute Code for [facility] Fwd Diagnoses Stroke-like symptom R29.90 Anxiety and depression F41.9; F32.9 Hypokalemia E87.6 Marijuana use F12.90 Cervical intraepithelial neoplasia III D06.9
[2024-02-24 21:22] LABS: Free T4 Free Thyroxine 1.42 ng/dL (0.82-1.77); Magnesium 2.1 mg/dL (1.7-2.3); Thyroid Stimulating Hormone 0.66 uIU/mL (0.27-4.20)
[2024-02-24 21:58] LABS: Chol HDL Ratio 3.09 mg/dL (0.0-4.40); Cholesterol 207 mg/dL (0-200); HDL Cholesterol 67 mg/dL (60-100); LDL Cholesterol Calculated 113 mg/dL (50-129); LDL HDL Ratio 1.69 RATIO (0.00-3.22); Triglycerides 133 mg/dL (0-150)
--- NOTE | 2024-02-24 22:37 | PC.NURSE ---
Patient states she does not take any medications at home other than Tylenol and Ibuprofen as needed.
[2024-02-24 22:46] LABS: Estmated Average Glucose 108; Hemoglobin A1C 5.4 % (4.0-6.0)
[2024-02-24] MEDS: ketorolac 30 mg/mL INJ 15 MG IVP (22:57)
[2024-02-24] MEDS: ondansetron 2 mg/ML SDV 2 mL 4 MG IVP (22:57)
[2024-02-24] MEDS: potassium chloride ER 20 mEq Tablet PO (22:57)
[2024-02-24] MEDS: enoxaparin 40 mg/0.4 mL Syringe SUBCUT (22:57)
--- NOTE | 2024-02-24 23:09 | PC.NURSE ---
Patient tearful, stating that she has anxiety and depression and that her father also today. I asked patient if she has spoken with her doctor about her depression and she states no. Patient educated that she needs to inform her doctor of this. Patient states that she does not have any thoughts of suicide. Patient states she has been on her menstrual cycle for 6 months. I asked patient if she has talked to her doctor about this and she states no. Patient educated that she needs to inform her doctor of this. Patient has control implant in left arm. Patient states she is wanting it removed.
[2024-02-25] VITALS (7 sets, daily range): BP systolic 126–143; BP diastolic 77–88; PULSE 63–78; RESP 16–18; TEMP 36.5–37.2; O2SAT 96–99
[2024-02-25] MEDS: nicotine 21 mg Patch 1 PATCH TRANSDERMA (00:40)
--- NOTE | 2024-02-25 08:00 | USCV_ITS ---
Terra Rubio Age: 38 Gender: F : 1985 Exam Date: 02/25/2024 01:18 Ordering Phys: Henry Rios MD Technologist: NADER Exam Location: [facility] – [place] Indication: left hemiparesis, left visual disturbance TIA. No history of cardiac intervention per patient. BP: 121 / 82 HR: 64 Rhythm: Sinus Technical Quality: Good MEASUREMENTS (Male / Female) Normal Values 2D ECHO LV Diastolic Diameter PLAX 4.7 cm 4.2 - 5.9 / 3.9 - 5.3 cm IVS Diastolic Thickness 1.2 cm 0.6 - 1.0 / 0.6 - 0.9 cm IVS Systolic Thickness 1.7 cm LVPW Diastolic Thickness 1.0 cm 0.6 - 1.0 / 0.6 - 0.9 cm LVPW Systolic Thickness 1.7 cm LVOT Diameter 1.8 cm LV Ejection Fraction 2D Teich 65.3 % LV Ejection Fraction MOD 2C 56.9 % LV Ejection Fraction 2C AL 57.7 % LA Diameter 3.0 cm Aorta at Sinotubular Diameter 2.8 cm IVC Diameter 1.8 cm M-MODE LA Ao Ratio MM 1.3 AV Cusp Separation MM 1.7 cm DOPPLER AV Peak Velocity 112.0 cm/s LVOT Peak Velocity 81.0 cm/s AV Area Cont Eq vti 2.0 cm squared AV Area Cont Eq pk 1.8 cm squared MV Peak Velocity 87.0 cm/s MV Area PHT 3.3 cm squared Mitral E to A Ratio 1.6 TR Peak Velocity 205.0 cm/s TR Peak Gradient 16.8 mmHg Right Atrial Pressure 3.0 mmHg Pulmonary Artery Systolic Pressu 19.8 mmHg PV Peak Velocity 67.0 cm/s FINDINGS Left Ventricle Left ventricle is normal in size. LV systolic function is normal with EF of 55 to 60%. No regional wall motion abnormalities are seen. Right Ventricle Normal in size and function Right Atrium Normal in size Left Atrium Normal in size Mitral Valve Structurally normal mitral valve. Trace mitral regurgitation. Aortic Valve Structurally normal aortic valve. No significant stenosis or regurgitation. Tricuspid Valve Insufficient TR jet to evaluate RVSP. Pulmonic Valve Not well-visualized Pericardium Normal Aorta Normal in size IVC Appears to be normal CONCLUSIONS LV systolic function is normal with EF of 55 to 60%. Trace mitral regurgitation No comparison studies are available. Jose Luis Vieyra MD (Electronically Signed) Final Date: 25 February 2024 08:04 S
--- NOTE | 2024-02-25 08:00 | MR_ITS ---
WS: [id number] MRI HEAD WITHOUT CONTRAST TECHNIQUE: Sagittal T1, T2 axial, T2 axial FLAIR, axial and coronal T1 images, axial susceptibility w eighted imaging, axial diffusion weighted images, and coronal T2 images were obtained. CLINICAL INFORMATION: TIA COMPARISON: CT 02/24/2024 FINDINGS: Some images degraded by motion artifact. No evidence of restricted diffusion to suggest acute ischemia. Ventricular system and basal cisterns are patent. Suggestion of a tiny chronic lacunar infarct LEFT cerebellum. Normal posterior fossa. Nor mal vascular flow voids at the skull base. No extra-axial fluid collections. No evidence of mass or m ass effect. Paranasal sinuses are well aerated. Mastoid air cells are well aerated. Normal posterior nasopharynx. No hemosiderin on the susceptibly weighted images. Normal optic chiasm and pituitary infundibulum. Mi ld symmetric atrophy anterior temporal lobes and hippocampal formations. No signal abnormalities in t he mesial temporal lobes. No other acute findings. MR/MR head wo con* [id number] IMPRESSION: 1. No evidence of restricted diffusion to suggest acute ischemia. 2. Suggestion of a tiny chronic lacunar infarct LEFT cerebellum. No other susp icious intracranial signal abnormalities. 3. No hemosiderin on the susceptibly weighted images. 4. Normal optic chiasm and pituitary infundibulum. 5. No other acute findings.
--- NOTE | 2024-02-25 08:00 | USCV_ITS ---
NelliUrbano toscanoth Age: 38 Gender: F : 1985 Exam Date: 02/25/2024 00:43 Ordering Phys: Henry Rios MD Technologist: NADER Exam Location: [facility] – [place] Indication: left hemiparesis, left visual disturbance TIA Risk Factors: smoker Previous Vascular Surgery: None Right Brachial BP: 121 / 82 Left Brachial BP: / Right Left Velocity (cm/s) Spectral Plaque Velocity (cm/s) Spectral Plaque Syst/Diast Broadening Syst/Diast Broadening 88.00/ 19.30 None None Prox CCA 79.10 / 27.10 None None 82.80/ 27.10 None None Mid CCA 82.90 / 32.10 None None 77.60/ 29.70 Min None Distal CCA 68.00 / 28.40 Min None 55.50/ 30.20 Min None Prox ICA 73.80 / 26.50 Min None 102.20/49.20 Min None Mid ICA 96.60 / 40.00 Min None 84.50/ 40.30 Min None Distal ICA 87.00 / 35.80 Min None 64.40 Min None ECA 91.40 Min None 1.30 ICA/CCA 1.40 Antegrade Vertebral Antegrade 32.70/ 12.50 cm/s 26.00/ 4.90 cm/s Tri Subclavian Tri 73.20 108.6 0 FINDINGS Comparison: none available. No significant elevation of systolic or diastolic velocities. Waveforms are normal. No significant amount of calcified plaque or intimal thickening identified. CONCLUSIONS Normal carotid doppler ultrasound. Dr. Rita Hayes DO (Electronically Signed) Final Date: 25 February 2024 07:31 S
[2024-02-25] MEDS: HYDROcodone-acetaminophen 5-325 mg Tablet 1 TAB PO (12:23)
--- NOTE | 2024-02-25 13:35 | P.DS_ITS ---
Discharge Providers Date of Admission: 02/24/24 19:52 Date of Discharge: February 25, 2024 Attending Provider at Admission: Omar Mahoney MD Attending Provider at Discharge: Tereza Parry MD Primary Care Provider: Evita Love MD Diagnoses at Discharge Discharge Diagnosis (1) Stroke-like symptom: Status: Resolved (2) Anxiety and depression: Status: Acute (3) Hypokalemia: Status: Resolved (4) Marijuana use: Status: Acute (5) Cervical intraepithelial neoplasia III: Status: Acute Permanent problem details: 11/24/2018: Colposcopy. Minimal acetowhite changes. TZ not seen. Stenotic cervix. 11:00 biopsy - rare dysplastic cells. ECC negative. 11/05/2018: ASCUS with positive high risk HPV. 07/13/2015: LEEP (performed in [place]). Path showed AZUL-3 with negative margin. 07/06/2015: Colposcopy (performed in [place]). External biopsy negative. ECC showed AZUL-3. Reason for Visit Reason for Visit: left side numbess and left eye blindess Hospital Course Hospital Course Presented for migraine headache with left temporal visual deficit. NIH 1. Patient not a candidate for thrombolytics. Her dad the day before. Noncontrast MRI head obtained and ruled out stroke.. Echo performed. Discussed case with neurology. Patient discharged home as per their recommendations. No medications given at discharge. Patient discharged home with referrals to [facility], neurology, primary care physician. Physical Exam Narrative: Seen sitting up comfortably in bed no acute distress Normal S1 and S2 Not feeling dizzy. No focal neurological deficits Abdomen soft nontender Lungs clear to auscultation. Discharge Data Studies Completed and Pending Completed Studies During Hospitalization Category Date Time Status CT head thrombolytic [id number] Stat Cat Scan 02/24/24 16:37 Completed XR chest 1V portable [id number] Stat Exams 02/24/24 16:37 Completed MR head wo con* [id number] Routine MRI 02/25/24 08:00 Completed US carotid duplex bilateral [CV carotid duplex BI* Ultrasound 02/25/24 08:00 Completed [id number]] Routine US echo complete [CV. echo complete* 11498] Routine Ultrasound 02/25/24 08:00 Completed Radiology Impressions Chest X-Ray 02/24/24 16:37 IMPRESSION: No acute findings. Head CT 02/24/24 16:37 IMPRESSION: 1. No acute intracranial abnormality. 2. Stable partially empty pituitary sella ASSESSMENT: ASPECTS ([place] Stroke Program Early CT Score) is 10. Head MRI 02/25/24 08:00 IMPRESSION: 1. No evidence of restricted diffusion to suggest acute ischemia. 2. Suggestion of a tiny chronic lacunar infarct LEFT cerebellum. No other suspicious intracranial signal abnormalities. 3. No hemosiderin on the susceptibly weighted images. 4. Normal optic chiasm and pituitary infundibulum. 5. No other acute findings. Laboratory Results WBC 8.21 10^3/uL (3.29-11.43) 02/24/24 17:04 RBC 4.76 10^6/uL (3.85-5.65) 02/24/24 17:04 Hgb 13.70 g/dL (11.27-16.99) 02/24/24 17:04 Hct 41.0 % (36-47) 02/24/24 17:04 MCV 86.1 fl (85-98) 02/24/24 17:04 MCH 28.8 pg (27-33) 02/24/24 17:04 MCHC 33.4 g/dL (30-55) 02/24/24 17:04 RDW 13.6 % (12.1-15.1) 02/24/24 17:04 Plt Count 261 10^3/cmm (157-399) 02/24/24 17:04 MPV 10.0 fL (7.4-10.4) 02/24/24 17:04 Neut % (Auto) 62.4 % 02/24/24 17:04 Lymph % (Auto) 27.8 % 02/24/24 17:04 [place] % (Auto) 5.5 % 02/24/24 17:04 Eos % (Auto) 3.2 % 02/24/24 17:04 Baso % (Auto) 0.7 % 02/24/24 17:04 Neut # (Auto) 5.13 10^3/uL (1.8-7.7) 02/24/24 17:04 Lymph # (Auto) 2.3 10^3/uL (0.8-4.8) 02/24/24 17:04 [place] # (Auto) 0.5 10^3/uL (0.2-0.9) 02/24/24 17:04 Eos # (Auto) 0.3 10^3/uL (0.0-0.8) 02/24/24 17:04 Baso # (Auto) 0.1 10^3/uL (0.0-0.1) 02/24/24 17:04 Nucleated RBC % (auto) 0 % 02/24/24 17:04 Nucleated RBCs # 0.0 /100WBC 02/24/24 17:04 PT 12.90 SECONDS (12.1-14.9) 02/24/24 17:04 INR 0.94 (0.8-1.2) 02/24/24 17:04 APTT 27.9 SECONDS (23.9-36.7) 02/24/24 17:04 Sodium 138 mmol/L (136-145) 02/24/24 17:04 Potassium 3.4 mmol/L (3.5-5.1) L 02/24/24 17:04 Chloride 104 mmol/L (98-107) 02/24/24 17:04 Carbon Dioxide 24 mmol/L (22-29) 02/24/24 17:04 Anion Gap 13.4 (5-19) 02/24/24 17:04 BUN 13 mg/dL (6-20) 02/24/24 17:04 Creatinine 0.4 mg/dL (0.5-0.9) L 02/24/24 17:04 GFR Calculation 177.7 mL/min (90-130) H 02/24/24 17:04 Glucose 106 mg/dL (65-115) 02/24/24 17:04 POC Glucose 116 mg/dL (70-110) H 02/24/24 16:53 Estimat Average Glucose 108 02/24/24 17:04 Hemoglobin A1c 5.4 % (4.0-6.0) 02/24/24 17:04 Calculated Osmolality 287 mOsm/kg (285-295) 02/24/24 17:04 Calcium 8.4 mg/dL (8.5-10.5) L 02/24/24 17:04 Magnesium 2.1 mg/dL (1.7-2.3) 02/24/24 17:04 Total Bilirubin 0.3 mg/dL (0.15-1.2) 02/24/24 17:04 AST 16 U/L (0-32) 02/24/24 17:04 ALT 17 U/L (0-33) 02/24/24 17:04 Alkaline Phosphatase 104 U/L (35-105) 02/24/24 17:04 Total Protein 7.3 g/dL (6.6-8.7) 02/24/24 17:04 Albumin 4.5 g/dL (3.5-5.2) 02/24/24 17:04 Globulin 2.8 g/dL (1.3-4.6) 02/24/24 17:04 Triglycerides 133 mg/dL (0-150) 02/24/24 17:04 Cholesterol 207 mg/dL (0-200) H 02/24/24 17:04 LDL Cholesterol, Calc 113 mg/dL (50-129) 02/24/24 17:04 HDL Cholesterol 67 mg/dL (60-100) 02/24/24 17:04 LDL/HDL Ratio 1.69 RATIO (0.00-3.22) 02/24/24 17:04 Cholesterol/HDL Ratio 3.09 mg/dL (0.0-4.40) 02/24/24 17:04 TSH 0.66 uIU/mL (0.27-4.20) 02/24/24 17:04 Free T4 1.42 ng/dL (0.82-1.77) 02/24/24 17:04 Free T3 3.0 PG/ML (2.0-4.4) 02/24/24 17:04 Urine Color Yellow (Yellow) 02/24/24 19:09 Urine Appearance Slightly cloudy (CLEAR) 02/24/24 19:09 Urine pH 5 (5-7) 02/24/24 19:09 Ur Specific [place] 1.030 (1.005-1.030) 02/24/24 19:09 Urine Protein Trace (Negative) 02/24/24 19:09 Urine Glucose (UA) Norm (Normal) 02/24/24 19:09 Urine Ketones 1+ (Negative) H 02/24/24 19:09 Urine Blood 3+ (Negative) H 02/24/24 19:09 Urine Nitrate Negative (Negative) 02/24/24 19:09 Urine Bilirubin Neg (Negative) 02/24/24 19:09 Urine Urobilinogen Norm mg/dL (Negative) 02/24/24 19:09 Ur Leukocyte Esterase Negative (Negative) 02/24/24 19:09 Urine RBC 5-10 /hpf (0-2) H 02/24/24 19:09 Urine WBC 0-4 /hpf (0-5) H 02/24/24 19:09 Ur Squamous Epith Cells 5-10 /hpf (0-5) H 02/24/24 19:09 Amorphous Sediment Not Reportable 02/24/24 19:09 Urine Bacteria 1+ /hpf (NONE) H 02/24/24 19:09 Urine Mucus 2+ /hpf 02/24/24 19:09 Urine Opiates Screen Negative ng/mL (Negative) 02/24/24 19:09 Ur Barbiturates Screen Negative ng/mL (Negative) 02/24/24 19:09 Ur Phencyclidine Scrn Negative ng/mL (Negative) 02/24/24 19:09 Ur Amphetamines Screen Negative ng/mL (Negative) 02/24/24 19:09 U Benzodiazepines Scrn Negative ng/mL (Negative) 02/24/24 19:09 Urine Cocaine Screen Negative ng/mL (Negative) 02/24/24 19:09 U Marijuana (THC) Screen Positive ng/mL (Negative) H 02/24/24 19:09 Ethyl Alcohol < 10 mg/dL (0-10) 02/24/24 17:04 Vitals Last Vital Signs Temp 98.1 F 02/25/24 11:47 Pulse 65 02/25/24 11:47 Resp 18 02/25/24 11:47 BP 128/87 02/25/24 11:47 Pulse Ox 99 02/25/24 11:47 O2 Del Method Room Air 02/25/24 11:47 Discharge Plan Discharge Patient Disposition: Home Condition: Stable Prescriptions: Continued No Known Home Medications Discharge Orders: Discharge Order (Routine); Ordered 02/25/24 Ordered By: Tereza Parry Referrals: Evita Love MD [Primary Care Provider] - 03/02/24 1:45 pm Henry Rios MD [Physician] - 1 week (We have notified your physician's clinic of the need for a follow-up appointment to be scheduled. If you have not heard from them within the next 2 business days, please call them directly. ) Wood Monsalve MD [Physician] - 4-7 days (We have notified your physician's clinic of the need for a follow-up appointment to be scheduled. If you have not heard from them within the next 2 business days, please call them directly. ) Discharge Diet: Regular Discharge Activity: Resume usual activity Patient Instructions: Headache - Migraine (Adult), Stroke (GEN), Opioid Safety, Stroke Stoplight Stand Alone Forms: Work/School Release Discharge Attestations Time Spent in Discharge Care*: less than 30 min Quality Metrics Clinical Quality Measures [ No reported AMI, CVA or VTE this stay] Coding Level of Care Code Acute Code for Chg Fwd Diagnoses Stroke-like symptom R29.90 Anxiety and depression F41.9; F32.9 Hypokalemia E87.6 Marijuana use F12.90 Cervical intraepithelial neoplasia III D06.9
[2024-02-25] MEDS: ondansetron 4 MG Tablet PO (13:57)
== END 2024-02-25 16:39 | disposition home or self-care (01) ==
LOC: ER 19:24 → MEDSURG 19:54
PROVIDERS: Psychiatry & Neurology Neurology; Admitting Provider Internal Medicine; Emergency Provider Emergency Medicine; PCP Family Medicine; Visit Provider Internal Medicine
DX: R29.90 Unspecified symptoms and signs involving the nervous system (principal); R51.9 Headache, unspecified; H54.7 Unspecified visual loss; F41.9 Anxiety disorder, unspecified; F32.A Depression, unspecified; E87.6 Hypokalemia; F12.90 Cannabis use, unspecified, uncomplicated; D06.9 Carcinoma in situ of cervix, unspecified; Z63.4 Disappearance and death of family member; Z87.891 Personal history of nicotine dependence
CPT/HCPCS: 36416; 70450; 70551; 71045; 80053; 80061; 80306; 80307; 81001; 82962; 83036; 83735; 84439; 84443; 84481; 85025; 85610; 85730; 93005; 93306; 93880; 96372; 96374; 96375; 99285; G0378; J1200; J1650; J1885; J2405; J2765; Q0162

== ENCOUNTER → 2024-04-17 16:33 | Outpatient (BNVA) | payer MEDICAID, SELFPAY | PROVIDERS: PCP Family Medicine; Visit Provider Emergency Medicine | DX: M19.041 Primary osteoarthritis, right hand (principal); M79.641 Pain in right hand | CPT/HCPCS: 73130 ==

== ENCOUNTER → 2024-05-19 11:49 | Outpatient (BNVA) | payer MEDICAID, SELFPAY | PROVIDERS: PCP Family Medicine; Visit Provider Student in an Organized Health Care Education/Training Program | DX: X58.XXXD Exposure to other specified factors, subsequent encounter; S62.306D Unspecified fracture of fifth metacarpal bone, right hand, subsequent encounter for fracture with routine healing | CPT/HCPCS: 73130 ==

== ENCOUNTER 2024-07-23 09:45 | Outpatient (CLI) | payer MEDICAID, SELFPAY ==
--- NOTE | 2024-07-23 09:45 | MR_ITS ---
WS: [id number] MRA HEAD TECHNIQUE: Axial 3-D TOF images obtained with axial images and axial, sagittal, and coronal 2-D refor matted images. CLINICAL INFORMATION: R55 - Syncope and collapse COMPARISON: None. FINDINGS: Dominant distal LEFT vertebral artery. Basilar artery is tiny but patent. Anterior dominant circulati on. Persistent LEFT LAMINATOR PREFORMS. Patent RIGHT posterior communicating artery. Mild segmental narrowing LEFT greater than RIGHT mid and distal LAMINATOR PREFORMS territory. Distal vessels remain patent. Both ICAs are patent at the skull base. Normal vascularity to the JEANNE territory. Normal vascularity t o the MCA territory bilaterally. No evidence of proximal flow-limiting stenosis. MR/MR angio head wo con [id number] IMPRESSION: 1. Anterior dominant circulation described above. 2. Areas of mild segmental narrowing in the mid and distal LEFT greater than R IGHT LAMINATOR PREFORMS territory. Recommend correlation with history of vasculitis, hypertens ion, or diabetes. This is best seen on the maximum intensity projection images. Some of this may be due to slight motion artifact.
== END 2024-07-23 09:48 | disposition home or self-care (01) ==
PROVIDERS: PCP Family Medicine; Visit Provider Psychiatry & Neurology Neurology
DX: R55 Syncope and collapse (principal); R94.02 Abnormal brain scan
CPT/HCPCS: 70544

== ENCOUNTER 2024-09-24 10:00 | Outpatient (CLI) | payer MEDICAID, SELFPAY ==
[2024-09-24 10:04] VITALS: BP 156/83; PULSE 92; BMI 28.3
--- NOTE | 2024-09-24 10:04 | ECG_ITS ---
[facility] [place] Test Date: 2024-09-24 Pat Name: Terra Rubio Department: Room: Gender: Female Qa Developer: : 1985 Requested By: Evita Porter Order Number: [id number] Riley MD: HIRAL CHAN Interpretive Statements EXERCISE DATA: The patient was exercised by Chaka protocol. Baseline heart rate was 70 beats per minute. Baseline blood pressure was 125/75 millimeters of mercury. Target heart rate was 180 beats per minute. Maximum heart rate achieved was 178, which was 98% of the target heart rate. Maximum blood pressure was 180/100 millimeters of mercury. Total exercise time was 10 minutes 2 seconds maximum METs achieved was 13.5 maximum VO2 was 47.3. The reason for ending the test was [completion of the protocol]. The patient complained of shortness of breath during the stress test, which then resolved at the end of the test. ELECTROCARDIOGRAM: BASELINE: Showed sinus rhythm, normal axis, no significant ST-T changes at the baseline noted. EXERCISE: At the peak exercise level, [No significant ST-T changes suggestive of ischemia noted. RECOVERY: During the recovery period, heart rate dropped appropriately. No significant ST-T changes in the recovery suggestive of ischemia noted. [] CONCLUSION: 1. Exercise capacity good 2. Heart rate response was appropriate 3. Blood pressure response was hypertensive 4. Symptoms not suggestive of ischemia. Electronically Signed On 09-28-2024 21:40:13 EXECUTIVE CHEF by HIRAL CHAN [id number]
== END 2024-09-24 10:01 | disposition home or self-care (01) ==
LOC: CDL 10:01
PROVIDERS: PCP Family Medicine; Visit Provider Internal Medicine Cardiovascular Disease
DX: R07.9 Chest pain, unspecified (principal)
CPT/HCPCS: 93017

== ENCOUNTER 2025-01-02 12:35 | Emergency (ER) | payer MEDICAID, SELFPAY ==
[2025-01-02] VITALS (10 sets, daily range): BP systolic 95–129; BP diastolic 73–91; PULSE 57–84; RESP 11–23; TEMP 36.4; O2SAT 95–98; BMI 28.3
--- NOTE | 2025-01-02 13:29 | XRR_ITS ---
PROCEDURE INFORMATION: Exam: XR Chest Exam date and time: 01/02/2025 1:49 PM Age: 39 years old Clinical indication: Syncope; Dizziness TECHNIQUE: Imaging protocol: Radiologic exam of the chest. Views: 1 view. COMPARISON: CR XR chest 1V portable [id number] 02/24/2024 4:43 PM FINDINGS: Lungs: Unremarkable. No consolidation. Pleural spaces: Unremarkable. No pleural effusion. No pneumothorax. Heart/Mediastinum: Unremarkable. No cardiomegaly. Bones/joints: Unremarkable. XR/XR chest 1V portable [id number] IMPRESSION: No acute findings.
--- NOTE | 2025-01-02 13:29 | W.ED.SYNCOPE ---
HPI - Syncope General: Chief Complaint: Syncope Stated Complaint: near syncope Time Seen by Provider: 01/02/25 12:37 Source: patient Mode of arrival: ambulatory Limitations: no limitations History of Present Illness: Patient reports she got dizzy and weak passed out and fell down. Hit her knees and head on concrete. Reports she still has a headache and still feels dizzy and weak. She is been having some vaginal bleeding for 3 months straight. Her control implant was removed 2 days ago. Patient's the pain in her head is an 8 out of 10 and she is nauseous. Related Data Home Medications ?Medication ?Instructions ?Recorded ?Confirmed No Known Home Medications 01/02/25 01/02/25 Allergies Allergy/AdvReac Type Severity Reaction Status Date / Time Iodinated Contrast Media Allergy ALGY-Anaphy Verified 09/08/24 14:46 laxis [facility] PFSH: Medical History Wound dehiscence Cellulitis Labial cyst care and examination Lab test positive for detection of COVID-19 virus 06/07/2020 Cervical intraepithelial neoplasia III 11/24/2018: Colposcopy. Minimal acetowhite changes. TZ not seen. Stenotic cervix. 11:00 biopsy - rare dysplastic cells. ECC negative. 11/05/2018: ASCUS with positive high risk HPV. 07/13/2015: LEEP (performed in [place]). Path showed AZUL-3 with negative margin. 07/06/2015: Colposcopy (performed in [place]). External biopsy negative. ECC showed AZUL-3. Anxiety and depression Surgical History Postoperative state History of cholecystectomy (~2010) Laparoscopic Family History Grandmother Thyroid disease Maternal Hypertension Maternal Diabetes Maternal Mother Diabetes Thyroid disease Hypertension Family/Other Hypertension Maternal aunt Heart disease Maternal uncle Social History Smoking and tobacco/nicotine status: current every day tobacco/nicotine user (1/2 PPD ) Quit status (tobacco/nicotine): has quit using Former quit date comment: Was smoking 1/4 ppd. Started age 31 Alcohol intake: never Substance/Drug Use: former Date of last use: Mid 05/2020 - marijuana Course Vital Signs: Vital signs: Vital Signs Temperature 97.5 F L 01/02/25 12:36 Pulse Rate 57 L 01/02/25 16:00 Respiratory Rate 23 H 01/02/25 16:00 Blood Pressure 129/76 01/02/25 16:00 Pulse Oximetry 97 01/02/25 16:00 Oxygen Delivery Me thod Room Air 01/02/25 12:36 MDM - Syncope Medical Decision Making Patient complained of vaginal bleeding for 3 months as the cause of her syncope. However hemoglobin is normal at 13.2 actually better than some of her previous hemoglobins. Concerning her syncope. She has no active anemia, no elevated BNP. Both by [place] syncope and risk criteria she is a low risk and B patient. Did notice that drug screen came back positive for opioids and marijuana. Patient has no opioid prescriptions visible in the PDMP database. This could be risk for her fall as well. Thankfully workup has been unremarkable. Patient will be discharged. Follow-up with PCP. Medical Records I reviewed the patient's medical records. Lab Data I reviewed the patient's lab results. 01/02/25 12:45 01/02/25 12:45 Radiology Impressions Chest X-Ray 01/02/25 13:29 IMPRESSION: No acute findings. Ankle X-Ray 01/02/25 13:47 IMPRESSION: No acute findings. Knee X-Ray 01/02/25 13:47 IMPRESSION: No acute findings. Laboratory Results WBC 9.97 10^3/uL (3.29-11.43) 01/02/25 12:45 RBC 4.61 10^6/uL (3.85-5.65) 01/02/25 12:45 Hgb 13.20 g/dL (11.27-16.99) 01/02/25 12:45 Hct 41.7 % (36-47) 01/02/25 12:45 MCV 90.5 fl (85-98) 01/02/25 12:45 MCH 28.6 pg (27-33) 01/02/25 12:45 MCHC 31.7 g/dL (30-55) 01/02/25 12:45 RDW 13.7 % (12.1-15.1) 01/02/25 12:45 Plt Count 285 10^3/cmm (157-399) 01/02/25 12:45 MPV 10.6 fL (7.4-10.4) H 01/02/25 12:45 Neut % (Auto) 63.6 % 01/02/25 12:45 Lymph % (Auto) 25.8 % 01/02/25 12:45 [place] % (Auto) 4.7 % 01/02/25 12:45 Eos % (Auto) 4.8 % 01/02/25 12:45 Baso % (Auto) 0.7 % 01/02/25 12:45 Neut # (Auto) 6.34 10^3/uL (1.8-7.7) 01/02/25 12:45 Lymph # (Auto) 2.6 10^3/uL (0.8-4.8) 01/02/25 12:45 [place] # (Auto) 0.5 10^3/uL (0.2-0.9) 01/02/25 12:45 Eos # (Auto) 0.5 10^3/uL (0.0-0.8) 01/02/25 12:45 Baso # (Auto) 0.1 10^3/uL (0.0-0.1) 01/02/25 12:45 Nucleated RBC % (auto) 0 % 01/02/25 12:45 Nucleated RBCs # 0.0 /100WBC 01/02/25 12:45 D-Dimer 0.39 ug/mLFEU (0-0.59) 01/02/25 12:45 Sodium 137 mmol/L (136-145) 01/02/25 12:45 Potassium 4.2 mmol/L (3.5-5.1) 01/02/25 12:45 Chloride 104 mmol/L (98-107) 01/02/25 12:45 Carbon Dioxide 22 mmol/L (22-29) 01/02/25 12:45 Anion Gap 15.2 (5-19) 01/02/25 12:45 BUN 13 mg/dL (6-20) 01/02/25 12:45 Creatinine 0.5 mg/dL (0.5-0.9) 01/02/25 12:45 GFR Calculation 136.6 mL/min (90-130) H 01/02/25 12:45 Glucose 98 mg/dL (65-115) 01/02/25 12:45 Calculated Osmolality 284 mOsm/kg (285-295) L 01/02/25 12:45 Calcium 8.8 mg/dL (8.5-10.5) 01/02/25 12:45 Total Bilirubin 0.2 mg/dL (0.15-1.2) 01/02/25 12:45 AST 19 U/L (0-32) 01/02/25 12:45 ALT 14 U/L (0-33) 01/02/25 12:45 Alkaline Phosphatase 101 U/L (35-105) 01/02/25 12:45 Troponin T Baseline < 6 ng/L (0-10) 01/02/25 12:45 Troponin T 120 Minute 6.00 ng/L (0-10) 01/02/25 14:44 Delta Troponin T 0.26300 ABS# (0-10) 01/02/25 14:44 NT-Pro-B Natriuret Pep 91 pg/mL (0-125) 01/02/25 12:45 Total Protein 6.7 g/dL (6.6-8.7) 01/02/25 12:45 Albumin 4.3 g/dL (3.5-5.2) 01/02/25 12:45 Globulin 2.4 g/dL (1.3-4.6) 01/02/25 12:45 HCG, Qual Negative (Negative) 01/02/25 15:38 Urine Color Yellow (Yellow) 01/02/25 15:38 Urine Appearance Clear (CLEAR) 01/02/25 15:38 Urine pH 5 (5-7) 01/02/25 15:38 Ur Specific [place] 1.025 (1.005-1.030) 01/02/25 15:38 Urine Protein Trace (Negative) 01/02/25 15:38 Urine Glucose (UA) Norm (Normal) 01/02/25 15:38 Urine Ketones Negative (Negative) 01/02/25 15:38 Urine Blood 3+ (Negative) H 01/02/25 15:38 Urine Nitrate Negative (Negative) 01/02/25 15:38 Urine Bilirubin Neg (Negative) 01/02/25 15:38 Urine Urobilinogen Neg mg/dL (Negative) 01/02/25 15:38 Ur Leukocyte Esterase Trace (Negative) H 01/02/25 15:38 Urine RBC >100 /hpf (0-2) H 01/02/25 15:38 Urine WBC 0-5 /hpf (0-5) 01/02/25 15:38 Ur Squamous Epith Cells 11-20 /hpf (0-5) H 01/02/25 15:38 Amorphous Sediment Not Reportable 01/02/25 15:38 Urine Bacteria 2+ /hpf (NONE) H 01/02/25 15:38 Hyaline Casts 0.40 /lpf 01/02/25 15:38 Urine Opiates Screen Positive ng/mL (Negative) H 01/02/25 15:38 Ur Barbiturates Screen Negative ng/mL (Negative) 01/02/25 15:38 Ur Phencyclidine Scrn Negative ng/mL (Negative) 01/02/25 15:38 Ur Amphetamines Screen Negative ng/mL (Negative) 01/02/25 15:38 U Benzodiazepines Scrn Negative ng/mL (Negative) 01/02/25 15:38 Urine Cocaine Screen Negative ng/mL (Negative) 01/02/25 15:38 U Marijuana (THC) Screen Positive ng/mL (Negative) H 01/02/25 15:38 Ethyl Alcohol < 10 mg/dL (0-10) 01/02/25 12:45 All radiology interpretation(s) finalized by discharge ED provider radiology interpretation(s): X-ray of chest knee and ankle personally reviewed and I see no acute normality. EKG Data EKG 1: I personally reviewed and interpreted this EKG as follows: EKG interpretation date: 01/02/25 EKG interpretation time: 16:19 Prior EKG tracings: not available for review Interpretation: Sinus bradycardia at 59, normal axis, QTc 405, QRS 93. No ST elevation or depression. Discharge Plan Discharge Patient Disposition: Home Clinical Impression: Syncope Qualifiers: Syncope type: unspecified Qualified Code(s): R55 - Syncope and collapse Condition: Stable Prescriptions: No Action No Known Home Medications Discharge Orders: Discharge ED (Routine); Ordered 01/02/25 Ordered By: Best Lawton Referrals: Evita Love MD [Physician] - Discharge Diet: Usual diet Discharge Activity: Resume usual activity Patient Instructions: Syncope (ED) Activity Restrictions/Additional Instructions: Follow-up with your primary care within 1 week for further eval. Stand Alone Forms: Work/School Release Print Language: Kuwaiti Coding Level of Care Code ED Gunner'S Mate for Marcial Sands
[2025-01-02] MEDS: sodium chloride 0.9% 1,000 ML 999 ML IV (13:33)
[2025-01-02] MEDS: ondansetron 2 mg/ML SDV 2 mL 4 MG IVP (13:33)
[2025-01-02 13:36] LABS: Basophils # 0.1 10^3/uL (0.0-0.1); Basophils % 0.7 %; Eosinophils # 0.5 10^3/uL (0.0-0.8); Eosinophils % 4.8 %; Hematocrit 41.7 % (36-47); Lymphocytes # 2.6 10^3/uL (0.8-4.8); Lymphocytes % 25.8 %; Mean Corpuscular HGB Conc 31.7 g/dL (30-55); Mean Corpuscular Hemoglobin 28.6 pg (27-33); Mean Corpuscular Volume 90.5 fl (85-98); Mean Platelet Volume 10.6 fL (7.4-10.4); Monocytes # 0.5 10^3/uL (0.2-0.9); Monocytes % 4.7 %; Neutrophils # 6.34 10^3/uL (1.8-7.7); Neutrophils % 63.6 %; Nucleated Red Blood Cells % 0 %; Platelet Count 285 10^3/cmm (157-399); Red Blood Count 4.61 10^6/uL (3.85-5.65); Red Cell Distribution Width 13.7 % (12.1-15.1); White Blood Count 9.97 10^3/uL (3.29-11.43)
--- NOTE | 2025-01-02 13:47 | XRR_ITS ---
PROCEDURE INFORMATION: Exam: XR Right Knee Exam date and time: 01/02/2025 1:49 PM Age: 39 years old Clinical indication: Knee; Right; RT lower ext pain post fall after syncopal episode TECHNIQUE: Imaging protocol: Radiologic exam of the right knee. Views: 3 views. COMPARISON: CR XR ankle RT min 3V* [id number] 12/20/2022 4:16 PM FINDINGS: Bones/joints: Normal. Soft tissues: Normal. XR/XR knee RT 3V* [id number] IMPRESSION: No acute findings.
--- NOTE | 2025-01-02 13:47 | XRR_ITS ---
PROCEDURE INFORMATION: Exam: XR Right Ankle Exam date and time: 01/02/2025 1:49 PM Age: 39 years old Clinical indication: Right; Prior surgery; Surgery date: 6+ months; Surgery type: RT ankle orif; RT lower ext pain post fall after syncopal episode TECHNIQUE: Imaging protocol: Radiologic exam of the right ankle. Views: 3 or more views. COMPARISON: CR XR ankle RT min 3V* [id number] 12/20/2022 4:16 PM FINDINGS: Bones/joints: No acute fracture. There is an intact metallic plate anchored to the lateral distal fibula with multiple intact screws. No fracture deformity is seen at this time. No acute findings. Ankle mortise is normal. Soft tissues: Normal. XR/XR ankle RT min 3V* [id number] IMPRESSION: No acute findings.
[2025-01-02 14:07] LABS: Troponin(5th) Baseline < 6 ng/L (0-10)
[2025-01-02 14:15] LABS: Alanine Aminotransferase 14 U/L (0-33); Albumin Level 4.3 g/dL (3.5-5.2); Alkaline Phosphatase 101 U/L (35-105); Blood Urea Nitrogen 13 mg/dL (6-20); Calcium 8.8 mg/dL (8.5-10.5); Carbon Dioxide 22 mmol/L (22-29); Chloride 104 mmol/L (98-107); Creatinine Clr Calc Pharmacy 148.1767; Globulin 2.4 g/dL (1.3-4.6); Glomerular Filtration Rate 136.6 mL/min (90-130); Glucose 98 mg/dL (65-115); NT Pro B Type Natriuretic Pept 91 pg/mL (0-125); Osmolality Calculated 284 mOsm/kg (285-295); Sodium 137 mmol/L (136-145); Total Bilirubin 0.2 mg/dL (0.15-1.2); Total Protein 6.7 g/dL (6.6-8.7)
[2025-01-02 14:16] LABS: Alcohol Level < 10 mg/dL (0-10); Anion Gap 15.2 (5-19); Aspartate Amino Transferase 19 U/L (0-32); Potassium 4.2 mmol/L (3.5-5.1)
[2025-01-02 15:13] LABS: D Dimer 0.39 ug/mLFEU (0-0.59)
[2025-01-02 15:16] LABS: Troponin 5 2HR Delta 0.00001 ABS# (0-10)
[2025-01-02 15:41] LABS: Add Urine Microscopic? NO
[2025-01-02 15:44] LABS: Glucose Urine UA Norm (Normal); Ketones Urine Negative (Negative); Protein Urine Trace (Negative); Specific Gravity, Urine 1.025 (1.005-1.030); Urine Appearance Clear (CLEAR); Urine Color Yellow (Yellow); pH Urine 5 (5-7)
[2025-01-02 15:45] LABS: Bilirubin Urine Neg (Negative); Blood Urine 3+ (Negative); Charge for UA Resulting for Rev; HCG Qualitative Urine. Negative (Negative); Leukocyte Esterase Urine Trace (Negative); Nitrate Urine Negative (Negative); Urobilinogen Urine Neg (Negative)
[2025-01-02 15:49] LABS: Bacteria Urine 2+ /hpf; RBC Urine >100 /hpf (0-2); WBC Urine 0-5 /hpf (0-5)
[2025-01-02 15:52] LABS: Amphetamines Screen Urine Negative (Negative); Barbiturates Screen Urine Negative (Negative); Benzodiazepines Screen Urine Negative (Negative); Cocaine Screen Urine Negative (Negative); Opiate Screen Urine Positive (Negative); PCP Screen Urine Negative (Negative); THC Screen Urine Positive (Negative)
--- NOTE | 2025-01-02 16:17 | ECG_ITS ---
[facility] Date[facility] 2025[facility]02 Pat Name: Terra Rubio Department: Room: Gender: Female Consumer Sales Representative: : 1985 Requested By: Best Lawton Order Number: [id number] Riley MD: Kiel Ovalle M.D. Measurements Intervals [place] Rate: 59 P: 62 OK: 168 QRS: 37 QRSD: 93 T: 48 QT: 405 QTc: 404 Interpretive Statements SINUS BRADYCARDIA WITH SINUS ARRHYTHMIA No previous ECG available for comparison Electronically Signed On 01-03-2025 21:21:04 CDT by Kiel Ovalle M.D. [email or web address]
[2025-01-02] MEDS: ketorolac 30 mg/mL INJ 15 MG IVP (16:38)
== END 2025-01-02 18:08 | disposition home or self-care (01) ==
PROVIDERS: Emergency Provider Emergency Medicine; PCP Nurse Practitioner Family
DX: R55 Syncope and collapse (principal); F17.210 Nicotine dependence, cigarettes, uncomplicated
CPT/HCPCS: 36415; 71045; 73562; 73610; 80053; 80306; 80307; 81003; 81025; 83880; 84484; 85025; 85378; 93005; 96374; 96375; 99285; J1885; J2405; J7030